=== PATIENT | female | born 1950 | race Caucasian/White ===

== ENCOUNTER 2023-10-19 12:50 | Outpatient (OUT) | payer MEDICARE, SELFPAY ==
--- NOTE | 2023-10-19 12:52 | MM_ITS ---
Patient Name: LORRAINE DE LEON MR#: [id number] : 1950 Exam Date: 10/19/2023 Ordering Doctor: DR TANO MARTINEZ RADIOLOGY REPORT PROCEDURE: MM TOMOSYNTHESIS SCREENING BI COMPARISON: MG MAMM SCREEN 3D JORDI CAD, 10/14/2021. MG MAMM SCREEN 3D JORDI CAD, 10/16/2022. INDICATIONS: screening Calculator Name NCI Breast Cancer Risk Assessment Tool 5 Year Breast Cancer Risk 1.60% Lifetime Breast Cancer Risk 4.10% Personal Breast Cancer No Personal Ovarian Cancer No Treatments None Family Cancers Mother with uterine cancer at age 87. LOCATION: [facility] BREAST COMPOSITION: Scattered areas fibroglandular density. FINDINGS: DIAGNOSTIC CATEGORY 1--NEGATIVE. NO CHANGE FROM COMPARISON ASSESSMENT. Scattered benign-appearing calcifications are present. Scattered benign-appearing lymph nodes are present. RIGHT BREAST: No significant suspicious finding. LEFT BREAST: No significant suspicious finding. RECOMMENDATIONS: ROUTINE MAMMOGRAM AND CLINICAL EVALUATION IN 12 MONTHS. PLEASE NOTE: A NORMAL MAMMOGRAM DOES NOT EXCLUDE THE POSSIBILITY OF BREAST CANCER. A CLINICALLY SUSPICIOUS PALPABLE LUMP SHOULD BE BIOPSIED. Dictated by: Yung Carson MD on 10/19/2023 at 13:33 Approved by: Yung Carson MD on 10/19/2023 at 13:36
== END 2023-10-19 12:51 | disposition home or self-care (01) ==
LOC: MAMMO 12:50
PROVIDERS: PCP Nurse Practitioner Family; Visit Provider Nurse Practitioner Family
DX: Z12.31 Encounter for screening mammogram for malignant neoplasm of breast (principal); Z80.8 Family history of malignant neoplasm of other organs or systems
CPT/HCPCS: 77063; 77067

== ENCOUNTER 2024-10-20 10:27 | Outpatient (OUT) | payer MEDICARE, SELFPAY ==
--- NOTE | 2024-10-20 10:31 | MM_ITS ---
Patient Name: LORRAINE DE LEON MR#: [id number] : 1950 Exam Date: 10/20/2024 Ordering Doctor: DR CHAYITO GARCIA RADIOLOGY REPORT PROCEDURE: MM TOMOSYNTHESIS SCREENING BI COMPARISON: MM TOMOSYNTHESIS SCREENING BI, 10/19/2023. MG MAMM SCREEN 3D JORDI CAD, 10/16/2022. MG MAMM SCREEN 3D JORDI CAD, 10/14/2021. MG MAMM JORDI SCRN W CAD DIG, 08/16/2013. INDICATIONS: Screening Calculator Name NCI Breast Cancer Risk Assessment Tool 5 Year Breast Cancer Risk 1.60% Lifetime Breast Cancer Risk 3.90% Personal Breast Cancer No Personal Ovarian Cancer No Treatments None Family Cancers Mother with uterine cancer at age 87. LOCATION: [facility] BREAST COMPOSITION: There are scattered areas of fibroglandular density. FINDINGS: DIAGNOSTIC CATEGORY 1--NEGATIVE. RIGHT BREAST: No significant suspicious finding. LEFT BREAST: No significant suspicious finding. RECOMMENDATIONS: ROUTINE MAMMOGRAM AND CLINICAL EVALUATION IN 12 MONTHS. PLEASE NOTE: A NORMAL MAMMOGRAM DOES NOT EXCLUDE THE POSSIBILITY OF BREAST CANCER. A CLINICALLY SUSPICIOUS PALPABLE LUMP SHOULD BE BIOPSIED. Dictated by: Jamar Lawton DO on 10/20/2024 at 15:58 Approved by: Jamar Lawton DO on 10/20/2024 at 15:59
--- OUTSIDE RECORDS SUMMARY | 2024-10-20 10:49 | XMS_ITS | CCD ---
Author Organization [facility] Care Team Providers Care Lime Trimmer Name Role Phone WEST, DR TEMO Kelly Consulting Unavailable JOSE, DR STRATTON Primary Care Unavailable JUAN, DR GRISELDA Pérez Attending Unavailable JUAN, DR GRISELDA Pérez Admitting Unavailable KUNS, DR GRISELDA Pérez Consulting Unavailable Chayito Garcia MD Primary Care Provider LORENA AMEZQUITA Attending Unavailable CHAYITO GARCIA Referring Unavailable KAYLEE HENLEY Attending Unavailable LORENA AMEZQUITA Attending Unavailable CHAYITO GARCIA Referring Unavailable Luis OVENS SUPERVISOR-BUNCH MAKER, Shelley Jose Antonio Primary Care Provider LUIS, SHELLEY L Attending Unavailable LUIS, SHELLEY L Referring Unavailable LUIS, SHELLEY L Primary Care Unavailable ANGELA SUMMERS Attending Unavailable LUIS, SHELLEY L Referring Unavailable LUIS, SHELLEY L Primary Care Unavailable QUE CELIS Attending Unavailable LUIS, SHELLEY L Referring Unavailable LUIS, SHELLEY L Primary Care Unavailable LUIS, SHELLEY L Attending Unavailable LUIS, SHELLEY L Referring Unavailable LUIS, SHELLEY L Primary Care Unavailable LUIS, SHELLEY L Primary Care Unavailable LUIS, SHELLEY L Referring Unavailable LUIS, SHELLEY L Attending Unavailable LUIS, SHELLEY L Referring Unavailable LUIS, SHELLEY L Primary Care Unavailable HOLLYS, GRISELDA WAGNER Attending Unavailable GRISELDA MARTINEZ ROSE Referring Unavailable KUNS, RODRÍGUEZ Primary Care Unavailable LUIS, SHELLEY L Referring Unavailable LUIS, SHELLEY L Primary Care Unavailable LUIS, SHELLEY L Referring Unavailable LUIS, SHELLEY L Primary Care Unavailable GRISELDA MARTINEZ R Referring Unavailable KUNAneudy GRISELDA R Primary Care Unavailable Kuns OVENS SUPERVISOR-BULLDOZER ENGINEER, Griselda Wagner Primary Care Provider LAURITA DAVIS Attending Unavailable GRISELDA MARTINEZ Referring Unavailable KUNS, RODRÍGUEZ Primary Care Unavailable LOUIE, LEONEL Engel Attending Unavailable LOUIELEONEL JAVIER Referring Unavailable KUNS, RODRÍGUEZ Primary Care Unavailable LOUIE, LEONEL Engel Admitting Unavailable LOUIE, LEONEL Engel Attending Unavailable KUNS, RODRÍGUEZ Referring Unavailable KUNS, RODRÍGUEZ Primary Care Unavailable ANDIE VU Attending Unavailable KUNS, RODRÍGUEZ Referring Unavailable KUNS, RODRÍGUEZ Primary Care Unavailable BRYNN DAVISON Referring Unavailable LUIS, SHELLEY L Primary Care Unavailable LAURITA DAVIS Attending Unavailable KUNS, RODRÍGUEZ Referring Unavailable LUIS, SHELLEY L Primary Care Unavailable BRYNN DAVISON Referring Unavailable LUIS, SHELLEY L Primary Care Unavailable LOUIE, LEONEL Engel Admitting Unavailable LOUIE, LEONEL Engel Attending Unavailable HOLLYS, RODRÍGUEZ Referring Unavailable LUIS, SHELLEY L Primary Care Unavailable LOUIE, LEONEL Engel Attending Unavailable LOUIE, LEONEL E Referring Unavailable LUIS, SHELLEY L Primary Care Unavailable LEONEL LOUIE Attending Unavailable LOUIE, LEONEL Engel Referring Unavailable LUIS, SHELLEY L Primary Care Unavailable GERTRUDE, LEONEL Engel Admitting Unavailable LOUIELEONEL JAVIER Attending Unavailable LEONEL LOUIE Referring Unavailable LUIS, SHELLEY L Primary Care Unavailable SAMUEL DAVIS Attending Unavailable LUIS, SHELLEY L Referring Unavailable LUIS, SHELLEY L Primary Care Unavailable QUE CELIS Referring Unavailable LUIS, SHELLEY L Primary Care Unavailable LAURITA DAVIS Attending Unavailable LUIS, SHELLEY L Referring Unavailable LUIS, SHELLEY L Primary Care Unavailable LEONEL LOUIE Admitting Unavailable LOUIELEONEL JAVIER Attending Unavailable LUIS, SHELLEY L Referring Unavailable LUIS, SHELLEY L Primary Care Unavailable LEONEL LOUIE Attending Unavailable LEONEL LOUIE Referring Unavailable LUIS, SHELLEY L Primary Care Unavailable Allergies Allergy Classification Reported Allergen(s) Allergy Type Date of Onset Reaction(s) Facility (20 sources) Clindamycin; Translations: [CLINDAMYCIN] Drug Allergy 8 [facility] Work Phone: (8 sources) Hylan G-F 20; Translations: [HYLAN G-F 20] Allergy to substance 1 [facility] (20 sources) Clindamycin; Translations: [CLINDAMYCIN HCL] Drug Allergy 1 [facility] Work Phone: (20 sources) HYLAN G-F 20 Drug Allergy [address] [facility] (20 sources) Other; Translations: [OTHER] Propensity to adverse reactions 1 [facility] Medications Current Medications Medication Drug Class(es) Dates Sig (Normalized) Sig (Original) acetaminophen 325 mg oral tablet (20 sources) Start: 09-28-2020 End: 05-02-2024 take 2 tablets by mouth every six hours as needed for pain and headache and fever acetaminophen (TYLENOL) 325 mg tablet Take 2 tablets (650 mg total) by mouth every 6 (six) hours as needed for pain, headaches or fever. 30 tablet 09/28/2020 05/02/2024 Discontinued (Therapy completed) take 1 tablet by melina th every four hours acetaminophen (Tylenol) 325 MG tablet Ta ke 325 mg by mouth every 4 (four) hours. Active [id number] 200 actuat albuterol 0.09 mg/actuat metered dose inhaler (20 sources) beta2-Adrenergic Agonist Start: 06-08-2023 End: 12-11-2023 take 3 mL by inhalation every six hours as needed for wheezing albuterol (PROVENTIL,VENTOLIN) 2.5 mg /3 mL (0.083 %) nebulizer solution Indications: Mild intermittent asthma, unspecified whether complicated Inhale 3 mL (2.5 mg total) by nebulization every 6 (six) hours as needed for wheezing. 75 mL 1 12/11/2023 Active Start: 05-19-2023 End: 06-01-2024 take 2 puff(s) by inhalation every four hours as needed for wheezing albuterol (PROVENTIL HFA;VENTOLIN HFA) 90 mcg/actuation inhaler Indications: Mild intermittent asthma, unspecified whether complicated Inhale 2 puffs every 4 (four) hours as needed for wheezing. 18 g 1 06/02/2024 Active take 2 puff(s) by in halation every four hours albuterol HFA (ProAir HFA) 90 mcg/act inhaler Inhale 2 puffs every 4 (four) hours if needed. Active Budesonide / formoterol (20 sources) Corticosteroid, beta2-Adrenergic Agonist Start: 05-16-2024 take 2 puff(s) by inhalation in the morning budesonide-formoteroL (SYMBICORT) 160-4.5 mcg/actuation inhaler Indications: Mild persistent asthma without complication Inhale 2 puffs in the morning and 2 puffs before bedtime. 30.6 g 1 05/16/2024 Active Start: 09-22-2023 End: 05-13-2024 take 2 puff(s) by inhalation in the morning budesonide-formoteroL (SYMBICORT) 160-4.5 mcg/actuation inhaler Indications: Mild persistent asthma without complication Inhale 2 puffs in the morning and 2 puffs before bedtime. 30.6 g 1 09/22/2023 05/13/2024 Discontinued (Reorder) Start: 09-22-2023 take 2 puff(s) by in halation in the morning budesonide-formoteroL (SYMBICORT) 160-4.5 mcg/actuation inhaler Indications: Mild persistent asthma without complication Inhale 2 puffs in the morning and 2 puffs before bedtime. 30.6 g 1 09/22/2023 Active Start: 05-19-2023 End: 09-22-2023 take 2 puff(s) by inhalation in the morning budesonide-formoteroL (SYMBICORT) 160-4.5 mcg/actuation inhaler Indications: Mild persistent asthma without complication Inhale 2 puffs in the morning and 2 puffs before bedtime. 30.6 g 1 05/19/2023 09/22/2023 Discontinued (Reorder) Start: 05-19-2023 take 2 puff(s) by in halation in the morning budesonide-formoteroL (SYMBICORT) 160-4.5 mcg/actuation inhaler Indications: Mild persistent asthma without complication Inhale 2 puffs in the morning and 2 puffs before bedtime. 30.6 g 1 05/19/2023 Active take 2 puff(s) by in halation in the morning budesonide-formoterol (Symbicort) 80-4.5 MCG/ACT inhaler Inhale 2 puffs in the morning and 2 puffs before bedtime. Active Calcium Carb-Cholecalciferol (CALCIUM CARBONATE-VITAMIN D3 PO) (5 sources) take 1 tablet by mouth in the morning Calcium Carb-Cholecalciferol (CALCIUM CARBONATE-VITAMIN D3 PO) Take 1 tablet by mouth in the morning and 1 tablet before bedtime. Active calcium carbonate 1250 mg / cholecalciferol 200 unt oral tablet (20 sources) Vitamin D take 1 tablet by mouth once in the morning calcium carbonate-vitamin D3 (OSCAL 500 + D) 500 mg(1,250mg) -200 units per tablet Take 1 tablet by mouth in the morning and 1 tablet in the evening. Take with meals. Active cycloSPORINE 0.5 mg/ml ophthalmic suspension (5 sources) Calcineurin Inhibitor Immunosuppressant take 1 drop(s) into the eye(s) every twelve hours cycloSPORINE (Restasis) 0.05 % ophthalmic emulsion Administer 1 drop into both eyes every 12 (twelve) hours. Active cycloSPORINE (RESTASIS) 0.05 % ophthalmic emulsion (20 sources) take 1 drop(s) into the eye(s) in the morning cycloSPORINE (RESTASIS) 0.05 % ophthalmic emulsion 1 drop in the morning and 1 drop before bedtime. Active take 1 drop(s) into the eye(s) in the morning cycloSPORINE (RESTASIS) 0.05 % ophthalmi c emulsion 1 drop in the morning and 1 drop before bedtime. 0 Active fluticasone propionate 0.05 mg/actuat metered dose nasal spray (20 sources) Corticosteroid Start: 08-18-2023 take 2 spray(s) nasal route in the morning fluticasone propionate (FLONASE) 50 mcg/actuation nasal spray Indications: Mild persistent asthma without complication Administer 2 sprays into each nostril in the morning. 47.4 mL 1 08/18/2023 Active Start: 05-19-2023 End: 08-15-2023 take 2 spray(s) nasal route in the morning fluticasone propionate (FLONASE) 50 mcg/actuation nasal spray Administer 2 sprays into each nostril in the morning. 47.4 mL 1 08/11/2023 08/15/2023 Discontinued (Reorder) take 2 spray(s) nasa l route in the morning fluticasone (Flonase Allergy Relief) 50 MCG/ACT nasal spray Administer 2 sprays into each nostril in the morning. Active levothyroxine sodium 0.025 mg oral tablet (20 sources) l-Thyroxine Start: 09-10-2024 End: 09-15-2024 take 1 tablet by mouth in the morning levothyroxine (SYNTHROID, LEVOTHROID) 25 MCG tablet Take 1 tablet (25 mcg total) by mouth in the morning. 7 tablet 09/15/2024 Active Start: 05-04-2023 End: 04-08-2024 take 1 tablet by mouth in the morning levothyroxine (SYNTHROID, LEVOTHROID) 25 MCG tablet Indications: Acquired hypothyroidism Take 1 tablet (25 mcg total) by mouth in the morning. 90 tablet 1 04/08/2024 Active losartan potassium 50 mg oral tablet (20 sources) Angiotensin 2 Receptor Alexis Start: 09-10-2024 take 1 tablet by mouth in the morning losartan (COZAAR) 50 mg tablet Take 1 tablet (50 mg total) by mouth in the morning. 90 tablet 1 09/10/2024 Active Start: 02-26-2024 End: 03-14-2024 take 1 tablet by mouth in the morning losartan (COZAAR) 50 mg tablet Take 1 tablet (50 mg total) by mouth in the morning. 90 tablet 1 03/15/2024 Active Start: 05-20-2023 End: 02-26-2024 take 1 tablet by mouth in the morning losartan (COZAAR) 25 mg tablet Take 1 tablet (25 mg total) by mouth in the morning. 30 tablet 11 10/29/2023 Active meclizine hydrochloride 25 mg oral tablet (20 sources) Antiemetic Start: 10-07-2022 take 1 tablet by mouth three times daily as needed for dizziness meclizine (ANTIVERT) 25 mg tablet Indications: Vertigo Take 1 tablet (25 mg total) by mouth 3 (three) times a day as needed for dizziness. 30 tablet 1 10/07/2022 Active metroNIDAZOLE 250 mg oral tablet (7 sources) Nitroimidazole Antimicrobial take 1 tablet by mouth in the morning metroNIDAZOLE (FLAGYL) 250 mg tablet Take 1 tablet (250 mg total) by mouth in the morning. Active tllmpjcj-bmwx-CS-ca lcium &mins (THERAGRAN-M) 9 mg iron-400 mcg tablet (20 sources) sajyeqpr-yazr-VT -c alcium &mins (THERAGRAN-M) 9 mg iron-400 mcg tablet Take 1 tablet by mouth in the morning. Active irnudcoa-girk-OC -calcium &mins (THERAGRAN-M) 9 mg iron-400 mcg tablet Take 1 tablet by mouth in the morning. 0 Active multivitamin (Theragran) tablet (5 sources) take 1 tablet by mouth in the morning multivitamin (Theragran) tablet Take 1 tablet by mouth in the morning. Active rosuvastatin calcium 5 mg oral tablet (20 sources) HMG-CoA Reductase Inhibitor Start: take 1 tablet by mouth once daily rosuvastatin (CRESTOR) 5 mg tablet Indications: Mixed hyperlipidemia Take 1 tablet (5 mg total) by mouth nightly. 90 tablet 1 09/10/2024 Active Start: 05-04-2023 End: 04-08-2024 take 1 tablet by mouth once daily rosuvastatin (CRESTOR) 5 mg tablet Indications: Mixed hyperlipidemia Take 1 tablet (5 mg total) by mouth nightly. 90 tablet 1 04/08/2024 Active Turmeric extract (12 sources) turmeric ([place] [facility] by miscellaneous route. Active vitamin b12 0.1 mg oral tablet (1 source) Vitamin B12 Start: 09-15-2024 take 1 tablet by mouth in the morning cyanocobalamin (VITAMIN B-12) 100 MCG tablet Take 1 tablet (100 mcg total) by mouth in the morning. 90 tablet 1 09/15/2024 Active Completed/Discontinued Medications Medication Drug Class(es) Dates Sig (Normalized) Sig (Original) bifidobacterium infantis 4 mg oral capsule (20 sources) Start: 05-19-2023 End: 04-29-2024 take 1 capsule by mouth in the morning Bifidobacterium infantis (ALIGN) 4 mg capsule Indications: Diarrhea, unspecified type Take 1 capsule (4 mg total) by mouth in the morning. 100 capsule 3 05/19/2023 04/29/2024 Discontinued escitalopram 5 mg oral tablet (20 sources) Serotonin Reuptake Inhibitor Start: 08-06-2024 End: 09-15-2024 take 1 tablet by mouth in the morning escitalopram (LEXAPRO) 5 mg tablet Take 1 tablet (5 mg total) by mouth in the morning. 90 tablet 1 08/11/2024 09/15/2024 Discontinued (Duplicate Listing) Start: 05-04-2023 End: 08-04-2024 take 1 tablet by mouth in the morning escitalopram (LEXAPRO) 5 mg tablet Take 1 tablet (5 mg total) by mouth in the morning. 90 tablet 1 04/08/2024 Active temazepam 7.5 mg oral capsule (20 sources) Benzodiazepine Start: 06-08-2023 End: 04-29-2024 take 1 capsule by mouth once daily as needed for sleep temazepam (RestoriL) 7.5 mg capsule Indications: Adjustment insomnia Take 1 capsule (7.5 mg total) by mouth nightly as needed for sleep. 30 capsule 02/16/2024 04/29/2024 Discontinued Problems Active Problems Problem Classification Problem Date Documented Da te Episodic/Chronic Allergic reactions (20 sources) Allergic reaction to drug; Translations: [Allergy, unspecified, initial encounter] 11-19-2017 Episodic Anxiety disorders (20 sources) Anxiety; Translations: [Anxiety disorder, unspecified] Onset: 2 04-30-2022 Chronic Asthma (20 sources) Asthma; Translations: [Unspecified asthma, uncomplicated] Onset: 2 04-30-2022 Chronic Chronic obstructive pulmonary disease and bronchiectasis (20 sources) Chronic obstructive lung disease; Translations: [Chronic obstructive pulmonary disease, unspecified] Onset: 7 02-07-2023 Chronic Conditions associated with dizziness or vertigo (20 sources) Meniere's disease; Translations: [Meniere's disease, unspecified ear] Onset: 8 02-07-2023 Chronic Diabetes mellitus with complications (20 sources) Type 2 diabetes mellitus; Translations: [Type 2 diabetes mellitus with other diabetic kidney complication] Onset: 3 05-20-2023 Chronic Diabetes mellitus without complication (20 sources) Type 2 diabetes mellitus without complication; Translations: [Type 2 diabetes mellitus without complications] Onset: 7 Resolved: 3 02-07-2023 Chronic Disorders of lipid metabolism (20 sources) Hyperlipidemia; Translations: [Hyperlipidemia, unspecified] Onset: 2 Resolved: 3 05-19-2023 Chronic Esophageal disorders (20 sources) Gastroesophageal reflux disease; Translations: [Gastro-esophageal reflux disease without esophagitis] Onset: 2 04-30-2022 Chronic Esophageal disorders (1 source) Esophageal disorders; Translations: [Gastro-esophageal reflux disease with esophagitis, without bleeding] Onset: 4 Essential hypertension (20 sources) Hypertensive disorder; Translations: [Essential (primary) hypertension] Onset: 2 02-07-2023 Chronic Menopausal disorders (20 sources) Atrophy of vagina; Translations: [Postmenopausal atrophic vaginitis] Onset: 6 04-30-2022 Chronic Nutritional deficiencies (20 sources) Vitamin D deficiency; Translations: [Vitamin D deficiency, unspecified] Onset: 9 04-30-2022 Chronic Osteoarthritis (20 sources) Osteoarthritis of knee; Translations: [Osteoarthritis of knee, unspecified] Onset: 6 Resolved: 3 02-07-2023 Chronic Other congenital anomalies (20 sources) Porokeratosis; Translations: [Other specified congenital malformations of skin] Onset: 0 Resolved: 3 02-07-2023 Chronic Other ear and sense organ disorders (20 sources) Sensorineural hearing loss, bilateral; Translations: [Sensorineural hearing loss, bilateral] Onset: 8 02-07-2023 Chronic Other ear and sense organ disorders (1 source) Sensation of blocked right ear; Translations: [Other specified disorders of right ear] 05-23-2024 Episodic Other gastrointestinal disorders (1 source) Intestinal malabsorption, unspecified; Translations: [Intestinal malabsorption, unspecified] Onset: 4 Chronic Other nervous system disorders (20 sources) Mononeuropathy of lower limb; Translations: [Unspecified mononeuropathy of bilateral lower limbs] Onset: 4 12-23-2023 Chronic Other nervous system disorders (1 source) Other specified mononeuropathies of right lower limb; Translations: [Other specified mononeuropathies of right lower limb] Onset: 5 Chronic Other nervous system disorders (1 source) Unspecified mononeuropathy of bilateral lower limbs; Translations: [Unspecified mononeuropathy of bilateral lower limbs] Onset: 4 Chronic Other nutritional; endocrine; and metabolic disorders (20 sources) Obesity; Translations: [Obesity, unspecified] Onset: 2 04-30-2022 Chronic Other nutritional; endocrine; and metabolic disorders (2 sources) Obesity caused by energy imbalance; Translations: [Class 1 obesity due to excess calories without serious comorbidity with body mass index (BMI) of 33.0 to 33.9 in adult] 09-15-2024 Chronic Other nutritional; endocrine; and metabolic disorders (1 source) Other obesity due to excess calories; Translations: [Other obesity due to excess calories] Onset: 2 Chronic Other nutritional; endocrine; and metabolic disorders (1 source) Body mass index (BMI) 33.0-33.9, adult; Translations: [Body mass index (BMI) 33.0-33.9, adult] Onset: 2 Chronic Other screening for suspected conditions (not mental disorders or infectious disease) (4 sources) Encounter for screening mammogram for malignant neoplasm of breast; Translations: [ENC SCR MAMMO MALIG NEOPLASM BREAST] Onset: 3 Episodic Otitis media and related conditions (2 sources) Chronic right mastoiditis; Translations: [Chronic mastoiditis, right ear] 06-22-2024 Chronic Residual codes; unclassified (1 source) Family history of malignant neoplasm of other organs or systems; Translations: [FAM HX MALIG NEOPLASM OTH ORGN/SYS] Onset: 3 Episodic Spondylosis; intervertebral disc disorders; other back problems (20 sources) Lumbar spondylosis; Translations: [Spondylosis without myelopathy or radiculopathy, lumbar region] Onset: 4 12-23-2023 Chronic Thyroid disorders (20 sources) Hypothyroidism; Translations: [Hypothyroidism, unspecified] Onset: 8 04-30-2022 Chronic Unclassified (1 source) controlled meds Onset: 5 Unclassified (1 source) Post-op Onset: 4 Unclassified (1 source) Cyst Onset: 4 Unclassified (1 source) Obesity, class 1; Translations: [Obesity, class 1] Onset: 2 Unclassified (1 source) Other specified mononeuropathies of right lower limb [G57.81] Onset: 4 Past or Other Problems Problem Classification Problem Date Documented Da te Episodic/Chronic Deficiency and other anemia (2 sources) Other iron deficiency anemias; Translations: [Other iron deficiency anemias] Onset: 11-24-2023 Episodic Genitourinary symptoms and ill-defined conditions (2 sources) Proteinuria, unspecified; Translations: [Proteinuria, unspecified] Onset: 05-20-2023 Episodic Immunizations and screening for infectious disease (2 sources) Encounter for immunization; Translations: [Influenza vaccination given] Onset: 05-26-2024 05-26-2024 Episodic Inflammatory diseases of female pelvic organs (20 sources) Chronic vaginitis; Translations: [Subacute and chronic vaginitis] Onset: 07-08-2016 04-30-2022 Episodic Miscellaneous mental health disorders (10 sources) Adjustment insomnia; Translations: [Acute insomnia] Onset: 02-26-2024 02-15-2024 Episodic Mood disorders (20 sources) Mood disorders Onset: 04-28-2024 Resolved: 05-26-2024 05-26-2024 Other and unspecified benign neoplasm (5 sources) Benign neoplasm of bone; Translations: [Benign neoplasm of bone and articular cartilage, unspecified] Onset: 02-07-2023 02-07-2023 Episodic Other and unspecified benign neoplasm (20 sources) Osteoma of skull; 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] Onset: 02-11-2023 02-11-2023 Episodic Other connective tissue disease (20 sources) Fibromyalgia; Translations: [Fibromyalgia] Onset: 05-19-2023 05-19-2023 Episodic Other ear and sense organ disorders (20 sources) Bilateral tinnitus; Translations: [Tinnitus, bilateral] Onset: 03-31-2018 02-07-2023 Episodic Other gastrointestinal disorders (20 sources) History of bariatric surgical procedure; Translations: [Bariatric surgery status] Onset: 01-11-2019 04-30-2022 Episodic Other gastrointestinal disorders (3 sources) Bariatric surgery status; Translations: [Bariatric surgery status] Onset: 04-30-2022 Episodic Other nervous system disorders (5 sources) Difficulty walking; Translations: [Difficulty in walking, not elsewhere classified] Onset: 02-07-2023 Resolved: 02-07-2023 02-07-2023 Chronic Other non-traumatic joint disorders (5 sources) Arthropathy; Translations: [Arthropathy, unspecified] Onset: 02-07-2023 Resolved: 02-07-2023 02-07-2023 Chronic Other skin disorders (2 sources) Epidermal cyst; Translations: [Epidermal cyst] Onset: 06-22-2024 Episodic Other skin disorders (1 source) Epidermoid cyst of skin; Translations: [Epidermal cyst] 05-26-2024 Episodic Other skin disorders (2 sources) Epidermoid cyst; Translations: [Epidermal cyst] 06-22-2024 Episodic Otitis media and related conditions (2 sources) Unspecified Eustachian tube disorder, right ear; Translations: [Dysfunction of right eustachian tube] Onset: 05-26-2024 05-26-2024 Episodic Residual codes; unclassified (20 sources) Edema; Translations: [Edema, unspecified] Onset: 04-30-2022 04-30-2022 Episodic Residual codes; unclassified (1 source) Edema, unspecified; Translations: [Edema, unspecified] Onset: 02-16-2024 Episodic Screening and history of mental health and substance abuse codes (1 source) Patient encounter status; Translations: [Encounter for screening for depression] 05-02-2024 Episodic Skin and subcutaneous tissue infections (20 sources) Cellulitis of right lower limb; Translations: [Cellulitis of right lower limb] Onset: 11-17-2017 11-19-2017 Episodic Spondylosis; intervertebral disc disorders; other back problems (20 sources) Disorder of sacrum; Translations: [Sacrococcygeal disorders, not elsewhere classified] Onset: 06-04-2022 07-08-2022 Episodic Syncope (20 sources) Vasovagal syncope; Translations: [Syncope and collapse] Onset: 09-28-2020 09-28-2020 Episodic Unclassified (20 sources) Onset: 08-25-2022 08-25-2022 Viral infection (20 sources) Plantar wart of right foot; Translations: [Plantar wart] Onset: 12-22-2016 Resolved: 02-07-2023 02-07-2023 Episodic Results Test Name Value Interpretation Reference Range Facility COMPREHENSIVE METABOLIC PANE Jaiden 09-15-2024 Albumin [Mass/Vol] 4.2 g/dL Normal 3.2-5.3 [facility] Comment on above: Performed By: #### C MP, THYR #### [facility] ([id number]) [address], [address] [place] [address] ALP [Catalytic activity/Vol] 72 U/L Normal 39-130 [facility] Comment on above: Performed By: #### C ROYA, THYR #### [facility] ([id number]) [address], [address] [place] [address] ALT [Catalytic activity/Vol] 29 U/L Normal 0-31 [facility] Comment on above: Performed By: #### C ROYA, THYR #### [facility] ([id number]) [address], [address] [place] [address] Anion gap [Moles/Vol] 10 mmol/L Normal 5-15 [facility] Comment on above: Performed By: #### C ROYA, THYR #### [facility] ([id number]) [address], [address] [place] [address] AST [Catalytic activity/Vol] 27 U/L Normal 0-41 [facility] Comment on above: Performed By: #### C ROYA, THYR #### [facility] ([id number]) [address], [address] [place] [address] Bilirubin [Mass/Vol] 0.4 mg/dL Normal 0.3-1.2 [facility] Comment on above: Performed By: #### C ROYA, THYR #### [facility] ([id number]) [address], [address] [place] [address] Calcium [Mass/Vol] 9.3 mg/dL Normal 8.5-10.5 [facility] Comment on above: Performed By: #### C ROYA, THYR #### [facility] ([id number]) [address], [address] [place] [address] Chloride [Moles/Vol] 104 mmol/L Normal 98-109 [facility] Comment on above: Performed By: #### C ROYA, THYR #### [facility] ([id number]) [address], [address] [place] [address] CO2 [Moles/Vol] 26 mmol/L Normal 22-32 [facility] Comment on above: Performed By: #### C ROYA, THYR #### [facility] ([id number]) [address], [address] [place] [address] Creatinine [Mass/Vol] 0.66 mg/dL Normal 0.40-1.00 [facility] Comment on above: Result Comment: METH OD TRACEABLE TO IDMS STANDARD Performed By: #### C ROYA, THYR #### [facility] ([id number]) [address] [address] [place] [address] eGFR (CKD-EPI) NON-RACE DEPENDENT >90 Normal >59 [facility] Comment on above: Result Comment: Reported eGFR is based on the CKD-EPI 2020 equation that does not use a race coefficient. Performed By: #### C ROYA, THYR #### [facility] ([id number]) [address], [address] [place] [address] Glucose [Mass/Vol] 127 mg/dL High 65-99 [facility] Comment on above: Performed By: #### C ROYA, THYR #### [facility] ([id number]) [address] [address] [place] [address] Potassium [Moles/Vol] 4.4 mmol/L Normal 3.5-5.0 [facility] Comment on above: Performed By: #### C ROYA, THYR #### [facility] ([id number]) [address] [address] [place] [address] Protein [Mass/Vol] 6.6 g/dL Normal 6.0-8.0 [facility] Comment on above: Performed By: #### C ROYA, THYR #### [facility] ([id number]) [address] [place] [address] Sodium [Moles/Vol] 140 mmol/L Normal 134-146 [facility] Comment on above: Performed By: #### C ROYA, THYR #### [facility] ([id number]) [address], [address] [place] [address] Urea nitrogen [Mass/Vol] 13 mg/dL Normal 5-27 [facility] Comment on above: Performed By: #### C ROYA, THYR #### [facility] ([id number]) [address], [address] [place] [address] MICROALBUMIN - ALBUMIN:CREAT ININE URINE RATIOon 09-15-2024 ALB/CREAT RATIO NOT CALCULATED Normal 0.0-30.0 [facility] Comment on above: Result Comment: Result for Albumin/Creatinine Ratio cannot be reliably calculated because urine albumin and or urine creatinine is below the detection limit of the assay. Performed By: #### M ALBU #### [facility] ([id number]) [address], [address] [place] [address] Albumin DL <= 20 mg/L (U) [Mass/Vol] mg/dL Normal 0.0-1.9 [facility] Comment on above: Performed By: #### M ALBU #### [facility] ([id number]) [address], [address] [place] [address] URINE CREAT 51.90 mg/dL Normal [facility] Comment on above: Performed By: #### M ALBU #### [facility] ([id number]) [address], [address] [place] [address] POCT Hemoglobin A1con 2024 HbA1c (Bld) [Mass fraction] 6.7 % 4 - 7 % [facility] THYROID PROFILEon 09-15-2024 Free T4 [Mass/Vol] 1.00 ng/dL Normal 0.61-1.60 [facility] Comment on above: Performed By: #### C MP, THYR #### [facility] ([id number]) [address] [place] [address], [address] [place] [address] TSH 2.14 uIU/mL Normal 0.49-4.67 [facility] Comment on above: Performed By: #### C MP, THYR #### [facility] ([id number]) [address] [place] [address], [address] [place] [address] Surgical Pathologyon 024 Surgical Pathology Normal [facility] Comment on above: Result Comment: [facility] [address] [place] [address] Surgical Pathology Consultation Patient Name:LOLI FLORES:1950 (Age: 74)Gender:FTaken:4Reported:06/28/2024hysician (s):Que Celis D.O. ([phone])Copy To: Rec. #:[id number]: #[id number] Final Pathologic Diagnosis Inclusion cyst - excision: - Benign epidermal inclusion cyst Report Electronically Signed Out manriquez/06/28/2024Bruce Porras MD [place] [address], License number: [id number]. Clinical History Inclusion cyst L72.0. Cyst left buttocks x1 year. Gross Description Received in formalin labeled DEFRIECE, left buttocks incision cyst is a pale-jaramillo wrinkled hair-bearing ellipse of skin, 1.9 x 0.8 x 0.1 cm. No lesion or area of discoloration is identified. The resection margin is inked green. The specimen is serially sectioned to reveal a cystic structure filled with friable vegetative material. Two front office representative cross-sections are submitted in a single cassette. (1, ss, [id number],m1) DM. dm/06/23/2024NSK Specimen(s) Received Left buttock Fee Codes(s): 1; 49377 Phytonadione [Mass/Vol]on VITAMIN K1 0.31 nmol/L Normal 0.22-4.88 [facility] Comment on above: Result Comment: NOTE INTERPRETIVE INFORMATION: Vitamin K1, Serum Vitamin K concentration is reported as nanomoles per liter (nmol/L). To convert concentration to nanograms per milliliter (ng/mL), multiply the result by 0.45. This test was developed and its performance characteristics determined by [facility]. It has not been cleared or approved by the [place] Food and Drug Administration. This test was performed in a CLIA certified laboratory and is intended for clinical purposes. Performed By: [facility] [address] [place] [address] Offal Baler: Isaac Avalos MD, PhD CLIA Number: [id number] Performed By: #### C BCA, CMP, FEPR, 04577-7, 2777-1, 2276-4, 2284-8, 2132-9, 78624-6 #### [facility] ([id number]) [address] [facility] [facility] [place] [address] #### 24566-3 #### [facility] ([id number]) [address] [place] [address], [place] [address] DRUG SCREEN, URINEon 024 AMPHETAMINE/METHAMP Negative Normal NEG [facility] Comment on above: Result Comment: AMPH /METH screening cut off = 1000 ng/mL Performed By: #### D JAIN #### [facility] ([id number]) [address] [facility] [facility] [place] [address] BARBITURATES Negative Normal NEG [facility] Comment on above: Result Comment: Kenzie iturates screening cut off value = 200 ng/mL Performed By: #### D JAIN #### [facility] ([id number]) [address] [facility], [address] [place] [address] BENZODIAZEPINES Negative Normal NEG [facility] Comment on above: Result Comment: Kishore odiazepines screening cut off value = 200 ng/mL Performed By: #### D JAIN #### [facility] ([id number]) [address] [place] [address] CANNABINOIDS Negative Normal NEG [facility] Comment on above: Result Comment: Nell abinoids/THC screening cut off value = 50 ng/mL Performed By: #### D JAIN #### [facility] ([id number]) [address] [place] [address] COCAINE METABOLITE Negative Normal NEG [facility] Comment on above: Result Comment: Coca ine screening cut off value = 300 ng/mL Performed By: #### D JAIN #### [facility] ([id number]) [address] [place] [address] ECSTASY Negative Normal [facility] Comment on above: Result Comment: Ecst asy screening cut off value = 500 ng/mL This report is intended for use in clinical monitoring or management of patients. Performed By: #### D JAIN #### [facility] ([id number]) [address], [address] [place] [address] METHADONE Negative Normal [facility] Comment on above: Result Comment: Meth adone screening cut off value = 300 ng/mL. Performed By: #### D JAIN #### [facility] ([id number]) [address], [address] [place] [address] OPIATES Negative Normal NEG [facility] Comment on above: Result Comment: Opia mariah screening cut off value = 300 ng/mL NOTE: This test is used for the detection of codeine, hydrocodone (>1000 ng/mL), morphine and hydromorphone (>900 ng/mL) in urine. Performed By: #### D JAIN #### [facility] ([id number]) [address], [address] [place] [address] OXYCODONE Negative Normal NEG [facility] Comment on above: Result Comment: Oxyc odone screening cut off value = 300 ng/mL NOTE: This test is used for the detection of oxycodone and oxymorphone in urine. Performed By: #### D JAIN #### [facility] ([id number]) [address] [facility] [place] [address] PHENCYCLIDINE Negative Normal NEG [facility] Comment on above: Result Comment: Phen cyclidine screening cut off value = 25 ng/mL Performed By: #### D JAIN #### [facility] ([id number]) [address] [place] [address] Drug Screen, Urineon 024 Amphetamines Screen method >1000 ng/mL Ql (U) Negative Negative^N [facility] Comment on above: AMPH/METH screening cut off = 1000 ng/mL Barbiturates Screen Ql (U) Negative N ative^N [facility] Comment on above: Barbiturates screeni ng cut off value = 200 ng/mL Benzodiazepines Ql (U) Negative Negat arabella^N [facility] Comment on above: Benzodiazepines scre ening cut off value = 200 ng/mL Cocaine Ql (U) Negative Negative^N [facility] Comment on above: Cocaine screening cu t off value = 300 ng/mL Methadone Screen Ql (U) Negative Nega tive^N [facility] Comment on above: Methadone screening cut off value = 300 ng/mL. Methylenedioxymethamphetamin e Screen Ql (U) Negative Negative^N [facility] Comment on above: Ecstasy screening cu t off value = 500 ng/mL This report is intended for use in clinical monitoring or management of patients. Opiates Screen Ql (U) Negative Negati ve^N [facility] Comment on above: Opiates screening cu t off value = 300 ng/mL NOTE: This test is used for the detection of codeine, hydrocodone (>1000 ng/mL), morphine and hydromorphone (>900 ng/mL) in urine. oxyCODONE Ql (U) Negative Negative^N [facility] Comment on above: Oxycodone screening cut off value = 300 ng/mL NOTE: This test is used for the detection of oxycodone and oxymorphone in urine. Phencyclidine Screen method >25 ng/mL Ql (U) Negative Negative^N egative [facility] Comment on above: Phencyclidine screen ing cut off value = 25 ng/mL Tetrahydrocannabinol Screen method >50 ng/mL Ql (U) Negative Negative^N ative [facility] Comment on above: Cannabinoids/THC scr eening cut off value = 50 ng/mL [facility] POCT Hemoglobin A1con 2023 HbA1c (Bld) [Mass fraction] 6.2 g/dL 4 - 7 g/ dL [facility] CBC AND AUTO DIFFon 02-16-20 ABSOLUTE BASOPHIL 0.0 X10E9/L Normal 0.0-0.2 [facility] Comment on above: Performed By: #### C BCA, CMP, FEPR, 82404-1, 2777-1, 2276-4, 2284-8, 2132-9, 60802-9 #### [facility] ([id number]) [address] [place] [address], [address] [place] [address] #### 26648-1 #### [facility] ([id number]) [address] [place] [address] ABSOLUTE NEUTROPHIL 4.3 X10E9/L Normal 1.5-6.6 [facility] Comment on above: Performed By: #### C BCA, CMP, FEPR, 20934-7, 2777-1, 2276-4, 2284-8, 2132-9, 10747-6 #### [facility] ([id number]) [address] [place] [address], [address] [place] [address] #### 45268-1 #### [facility] ([id number]) [address] [place] [address] Basophils/100 WBC (Bld) 0.2 % Normal [facility] Comment on above: Performed By: #### C BCA, CMP, FEPR, 87344-0, 7-1, 2276-4, 4-8, 2131-9, 26065-7 #### [facility] ([id number]) [address] [place] [address], [address] [place] [address] #### 99680-0 #### [facility] ([id number]) [address] [place] [address] Eosinophils (Bld) [#/Vol] 0.1 10*3/uL Normal 0.0-0.4 [facility] Comment on above: Performed By: #### C BCA, CMP, FEPR, 51871-2, 7-1, 6-4, 2283-8, 2132-04, 00433-8 #### [facility] ([id number]) [address] [place] [address], [address] [place] [address] #### 80072-7 #### [facility] ([id number]) [address] [place] [address] Eosinophils/100 WBC (Bld) 1.3 % Normal [facility] Comment on above: Performed By: #### C BCA, CMP, FEPR, 08734-0, 7-1, 6-4, 2283-8, 2132-04, 32627-8 #### [facility] ([id number]) [address] [place] [address], [address] [place] [address] #### 34556-3 #### [facility] ([id number]) [address] [place] [address] Erythrocyte distribution wid th (RBC) [Ratio] 14.0 % Normal 11.5-15.0 [facility] Comment on above: Performed By: #### C BCA, CMP, FEPR, 93160-1, 7-1, 2276-4, 4-8, 2132-04, 68633-1 #### [facility] ([id number]) [address] [place] [address] #### 31019-2 #### [facility] ([id number]) [address] [place] [address] Hematocrit (Bld) [Volume fraction] 42.8 % Normal 35-47 [facility] Comment on above: Performed By: #### C BCA, CMP, FEPR, 30394-2, 2777-1, 2276-4, 2284-8, 2131-9, 49286-8 #### [facility] ([id number]) [address] [place] [address] #### 17010-8 #### [facility] ([id number]) [address] [place] [address] Hemoglobin (Bld) [Mass/Vol] 15.1 g/dL Normal 11.7-15. 5 [facility] Comment on above: Performed By: #### C BCA, CMP, FEPR, 94190-6, 7-1, 2276-4, 4-8, 2131-9, 47567-4 #### [facility] ([id number]) [address] [place] [address] #### 18634-6 #### [facility] ([id number]) [address] [place] [address] Lymphocytes (Bld) [#/Vol] 1.1 10*3/uL Normal 1.0-3.5 [facility] Comment on above: Performed By: #### C BCA, CMP, FEPR, 58838-6, 2777-1, 2276-4, 2284-8, 2131-9, 62360-6 #### [facility] ([id number]) [address] [place] [address] #### 68709-2 #### [facility] ([id number]) [address] [place] [address] Lymphocytes/100 WBC (Bld) 18.5 % Normal [facility] Comment on above: Performed By: #### C BCA, CMP, FEPR, 66772-7, 2777-1, 2276-4, 2284-8, 2132-9, 41299-7 #### [facility] ([id number]) [address] [place] [address], [address] [place] [address] #### 48364-4 #### [facility] ([id number]) [address] [place] [address] MCH (RBC) [Entitic mass] 31.5 pg Normal 27-34 [facility] Comment on above: Performed By: #### C BCA, CMP, FEPR, 46006-6, 7-1, 6-4, 4-8, 2131-9, 42931-0 #### [facility] ([id number]) [address] [place] [address], [address] [address] #### 11149-6 #### [facility] ([id number]) [address] [place] [address] MCHC (RBC) [Mass/Vol] 35.2 g/dL Normal 32-36 [facility] Comment on above: Performed By: #### C BCA, CMP, FEPR, 73850-6, 7-1, 6-4, 2284-8, 2131-9, 70163-7 #### [facility] ([id number]) [address] [place] [address], [address] [place] [address] #### 63676-0 #### [facility] ([id number]) [address] [place] [address] MCV (RBC) [Entitic vol] 89 fL Normal 80-100 [facility] Comment on above: Performed By: #### C BCA, CMP, FEPR, 91027-7, 2777-1, 2276-4, 2284-8, 2-9, 13834-9 #### [facility] ([id number]) [address] [place] [address] #### 81728-3 #### [facility] ([id number]) [address] [place] [address] Monocytes (Bld) [#/Vol] 0.5 10*3/uL Normal 0-0.9 [facility] Comment on above: Performed By: #### C BCA, CMP, FEPR, 88528-0, 7-1, 2276-4, 4-8, 2131-9, 28603-5 #### [facility] ([id number]) [address] [facility], [address] [place] [address] #### 85587-9 #### [facility] ([id number]) [address] [place] [address] Monocytes/100 WBC (Bld) 7.7 % Normal [facility] Comment on above: Performed By: #### C BCA, CMP, FEPR, 94997-1, 2777-1, 2276-4, 2284-8, 2131-9, 08583-7 #### [facility] ([id number]) [address] [facility], [address] [place] [address] #### 78964-9 #### [facility] ([id number]) [address] [place] [address] Neutrophils/100 WBC (Bld) 72.3 % Normal [facility] Comment on above: Performed By: #### C BCA, CMP, FEPR, 29089-7, 2777-1, 2276-4, 2284-8, 2131-9, 71675-3 #### [facility] ([id number]) [address] [place] [address] #### 43826-2 #### [facility] ([id number]) [address] [place] [address] Platelet mean volume (Bld) [Entitic vol] 8.3 fL Normal 7-12 [facility] Comment on above: Performed By: #### C BCA, CMP, FEPR, 73544-9, 2777-1, 2276-4, 2284-8, 2132-9, 74149-1 #### [facility] ([id number]) [address] [place] [address] #### 73379-1 #### [facility] ([id number]) [address] [place] [address] Platelets (Bld) [#/Vol] 178 10*3/uL Normal 150-450 [facility] Comment on above: Performed By: #### C BCA, CMP, FEPR, 53875-5, 2777-1, 2276-4, 2284-8, 2132-9, 46803-0 #### [facility] ([id number]) [address] [place] [address] #### 58834-4 #### [facility] ([id number]) [address] [place] [address] RBC COUNT 4.79 X10E12/L Normal 3.80-5.20 [facility] Comment on above: Performed By: #### C BCA, CMP, FEPR, 98201-6, 2777-1, 2276-4, 2284-8, 2132-9, 48003-1 #### [facility] ([id number]) [address] [place] [address] #### 03808-9 #### [facility] ([id number]) [address] [place] [address] WBC (Bld) [#/Vol] 5.9 10*3/uL Normal 4.0-11.0 [facility] Comment on above: Performed By: #### C BCA, CMP, FEPR, 59492-2, 2777-1, 2276-4, 2284-8, 2132-9, 60663-9 #### [facility] ([id number]) [address] [facility], [address] [place] [address] #### 75052-0 #### [facility] ([id number]) [address] [place] [address] COMPREHENSIVE METABOLIC PANE Jaiden 02-16-2024 Albumin [Mass/Vol] 4.1 g/dL Normal 3.2-5.3 [facility] Comment on above: Performed By: #### C BCA, CMP, FEPR, 93292-2, 7-1, 2276-4, 2284-8, 2-9, 02587-2 #### [facility] ([id number]) [address] [facility], [address] [place] [address] #### 12974-7 #### [facility] ([id number]) [address] [place] [address]897 ALP [Catalytic activity/Vol] 63 U/L Normal 39-130 [facility] Comment on above: Performed By: #### C BCA, CMP, FEPR, 19577-9, 7-1, 2276-4, 2284-8, 2132-9, 80809-4 #### [facility] ([id number]) [address] [facility], [address] [place] [address] #### 80233-9 #### [facility] ([id number]) [address] [place] [address]010 ALT [Catalytic activity/Vol] 26 U/L Normal 0-31 [facility] Comment on above: Performed By: #### C BCA, CMP, FEPR, 72778-8, 2777-1, 2276-4, 2284-8, 2132-9, 75481-8 #### [facility] ([id number]) [address] [facility] [facility] [address] [place] [address] #### 25990-9 #### [facility] ([id number]) [address] [place] [address] Anion gap [Moles/Vol] 10 mmol/L Normal 5-15 [facility] Comment on above: Performed By: #### C BCA, CMP, FEPR, 58876-7, 2777-1, 2276-4, 2284-8, 2131-9, 70129-5 #### [facility] ([id number]) [address] [address] #### 66165-0 #### [facility] ([id number]) [address] [place] [address] AST [Catalytic activity/Vol] 27 U/L Normal 0-41 [facility] Comment on above: Performed By: #### C BCA, CMP, FEPR, 17819-8, 2777-1, 2276-4, 2284-8, 2131-9, 24255-7 #### [facility] ([id number]) [address] [facility] [facility] [address] [place] [address] #### 50021-4 #### [facility] ([id number]) [address] [place] [address]47 Bilirubin [Mass/Vol] 0.5 mg/dL Normal 0.3-1.2 [facility] Comment on above: Performed By: #### C BCA, CMP, FEPR, 11796-4, 2777-1, 2276-4, 2284-8, 2132-9, 06263-6 #### [facility] ([id number]) [address] [facility], [address] [place] [address] #### 01198-0 #### [facility] ([id number]) [address] [place] [address] 28216 Calcium [Mass/Vol] 9.1 mg/dL Normal 8.5-10.5 [facility] Comment on above: Performed By: #### C BCA, CMP, FEPR, 88946-3, 2777-1, 2276-4, 2284-8, 2-9, 32969-3 #### [facility] ([id number]) [address] [facility], [address] [place] [address] #### 55359-8 #### [facility] ([id number]) [address] [place] [address] 25977 Chloride [Moles/Vol] 105 mmol/L Normal 98-109 [facility] Comment on above: Performed By: #### C BCA, CMP, FEPR, 94387-5, 7-1, 2276-4, 2284-8, 2131-9, 54880-5 #### [facility] ([id number]) [address] [facility], [address] [place] [address] #### 22500-7 #### [facility] ([id number]) [address] [place] [address] 44509 CO2 [Moles/Vol] 27 mmol/L Normal 22-32 [facility] Comment on above: Performed By: #### C BCA, CMP, FEPR, 36337-5, 2777-1, 2276-4, 2284-8, 2132-9, 01992-1 #### [facility] ([id number]) [address], [address] [place] [address] #### 04494-0 #### [facility] ([id number]) [address] [place] [address] [address] Creatinine [Mass/Vol] 0.63 mg/dL Normal 0.40-1.00 [facility] Comment on above: Result Comment: METH OD TRACEABLE TO IDMS STANDARD Performed By: #### C BCA, CMP, FEPR, 21779-2, 2777-1, 2276-4, 2284-8, 2132-9, 28974-9 #### [facility] ([id number]) [address] [facility], [address] [place] [address] #### 81117-4 #### [facility] ([id number]) [address] [place] [address]93 eGFR (CKD-EPI) NON-RACE DEPENDENT >90 Normal >59 [facility] Comment on above: Result Comment: Reported eGFR is based on the CKD-EPI 2020 equation that does not use a race coefficient. Performed By: #### C BCA, CMP, FEPR, 79192-8, 7-1, 6-4, 4-8, 2131-9, 98467-0 #### [facility] ([id number]) [address], [address] [place] [address] #### 17773-3 #### [facility] ([id number]) [address] [place] [address]274 Glucose [Mass/Vol] 158 mg/dL High 65-99 [facility] Comment on above: Performed By: #### C BCA, CMP, FEPR, 34366-3, 7-1, 2276-4, 2284-8, 2131-9, 22302-3 #### [facility] ([id number]) [address] [facility], [address] [place] [address] #### 63188-8 #### [facility] ([id number]) [address] [place] [address]14 Potassium [Moles/Vol] 4.2 mmol/L Normal 3.5-5.0 [facility] Comment on above: Performed By: #### C BCA, CMP, FEPR, 89904-4, 2777-1, 2276-4, 2284-8, 2132-9, 76466-9 #### [facility] ([id number]) [address], [address] [place] [address] #### 38072-2 #### [facility] ([id number]) [address] [place] [address]1189 Protein [Mass/Vol] 6.5 g/dL Normal 6.0-8.0 [facility] Comment on above: Performed By: #### C BCA, CMP, FEPR, 79994-6, 7-1, 2276-4, 2284-8, 2131-9, 46938-9 #### [facility] ([id number]) [address], [facility] [address] [place] [address] #### 51293-6 #### [facility] ([id number]) [address] [place] [address] 68452 Sodium [Moles/Vol] 142 mmol/L Normal 134-146 [facility] Comment on above: Performed By: #### C BCA, CMP, FEPR, 15095-4, 7-1, 2276-4, 2284-8, 2131-9, 87538-6 #### [facility] ([id number]) [address], [address] [place] [address] #### 28539-6 #### [facility] ([id number]) [address] [place] [address] 25833 Urea nitrogen [Mass/Vol] 14 mg/dL Normal 5-27 [facility] Comment on above: Performed By: #### C BCA, CMP, FEPR, 92474-6, 2777-1, 2276-4, 2284-8, 2132-9, 61830-6 #### [facility] ([id number]) [address], [address] [place] [address] #### 94336-1 #### [facility] ([id number]) [address] [place] [address]70 FERRITINon 02-16-2024 Ferritin [Mass/Vol] 90 ng/mL Normal 11-307 [facility] Comment on above: Performed By: #### C BCA, CMP, FEPR, 80450-6, 2777-1, 2276-4, 4-8, 2131-9, 61542-5 #### [facility] ([id number]) [address] [facility], [address] [place] [address] #### 27063-8 #### [facility] ([id number]) [address] [place] [address] 70329 Folate [Mass/Vol]on 02-16-20 24 FOLIC ACID >25.0 Normal >5.8 [facility] Comment on above: Result Comment: NEW REFERENCE RANGE Performed By: #### C BCA, CMP, FEPR, 10829-6, 7-1, 6-4, 4-8, 2131-9, 39684-4 #### [facility] ([id number]) [address] [facility], [address] [place] [address] #### 80915-6 #### [facility] ([id number]) [address] [place] [address] 95190 IRON PROFILEon 02-16-2024 Iron [Mass/Vol] 90 ug/dL Normal 50-170 [facility] Comment on above: Performed By: #### C BCA, CMP, FEPR, 25403-0, 7-1, 2276-4, 2284-8, 2131-9, 62766-7 #### [facility] ([id number]) [address] [facility], [address] [place] [address] #### 73172-9 #### [facility] ([id number]) [address] [place] [address] 51875 IRON BINDING 409 ug/dL Normal 250-425 [facility] Comment on above: Performed By: #### C BCA, CMP, FEPR, 96424-1, 7-1, 2276-4, 2284-8, 2131-9, 36552-7 #### [facility] ([id number]) [address] [facility], [address] [place] [address] #### 52077-5 #### [facility] ([id number]) [address] [place] [address] 57150 IRON SATURATION 22 % SATURATION Normal 15-50 [facility] Comment on above: Performed By: #### C BCA, CMP, FEPR, 31579-1, 7-1, 6-4, 4-8, 2131-9, 98081-8 #### [facility] ([id number]) [address] [facility], [address] [place] [address] #### 01313-0 #### [facility] ([id number]) [address] [place] [address] 09045 MAGNESIUMon 02-16-2024 Magnesium [Mass/Vol] 1.9 mg/dL Normal 1.8-2.6 [facility] Comment on above: Performed By: #### C BCA, CMP, FEPR, 64255-3, 7-1, 6-4, 4-8, 2131-9, 13080-4 #### [facility] ([id number]) [address] [facility], [address] [place] [address] #### 08833-8 #### [facility] ([id number]) [address] [place] [address]32[address] PHOSPHORUSon 02-16-2024 Phosphate [Mass/Vol] 3.1 mg/dL Normal 2.4-4.9 [facility] Comment on above: Performed By: #### C BCA, CMP, FEPR, 56702-9, 2777-1, 2276-4, 2284-8, 2131-9, 95450-9 #### [facility] ([id number]) [address] [facility], [address] [place] [address] #### 45773-2 #### [facility] ([id number]) [address] [place] [address] Thiamine (Bld) [Moles/Vol]on 02-16-2024 Thiamin (Vitamin B1), WB 178 nmol/L Normal 70-180 [facility] Comment on above: Result Comment: NOTE ADDITIONAL INFORMATION This test was developed and its performance characteristics determined by [facility] in a manner consistent with CLIA requirements. This test has not been cleared or approved by the U.S. Food and Drug Administration. Test Performed by: [facility] [address] [place] [address] Instrumental Musician: Lsia Hoang Ph.D.; CLIA# [id number] Performed By: #### C BCA, CMP, FEPR, 27901-3, 7-1, 6-4, 4-8, 2131-9, 63507-4 #### [facility] ([id number]) [address] [facility], [address] [place] [address] #### 20799-3 #### [facility] ([id number]) [address] [place] [address] VITAMIN B12on 02-16-2024 Cobalamin (Vitamin B12) [Mass/Vol] 378 pg/mL Normal 180-914 [facility] Comment on above: Performed By: #### C BCA, CMP, FEPR, 99968-3, 2777-1, 2276-4, 2284-8, 2131-9, 09789-2 #### [facility] ([id number]) [address] [place] [address] #### 82592-6 #### [facility] ([id number]) [address] [place] [address] 75248 Vitamin D+Metabolites [Mass/ Vol]on 02-16-2024 VITAMIN D 25 HYD TOT 36.1 ng/mL Normal 30-100 [facility] Comment on above: Result Comment: Vitamin D status 25 [place] Vitamin D Deficiency <20 ng/mL Insufficiency 20-29 ng/mL Sufficiency 30-100 ng/mL Toxicity >100 ng/mL NOTE: A pediatric reference range has not been established by the marketing forecaster of this kit. The [employer] recommends a Vitamin D level of = or >20ng/mL in infants and children. Performed By: #### C BCA, CMP, FEPR, 49555-5, 2777-1, 2276-4, 2284-8, 2132-9, 08786-2 #### [facility] ([id number]) [address] [place] [address] #### 46548-6 #### [facility] ([id number]) [address] [place] [address] 98624 CBC AND AUTO DIFFon 11-24-19 24 ABSOLUTE BASOPHIL 0.0 X10E9/L Normal 0.0-0.2 [facility] Comment on above: Performed By: #### C BCA, CMP, 08432-2, 3016-3, 2276-4 #### [facility] ([id number]) [address] [place] [address]11 ABSOLUTE NEUTROPHIL 6.5 X10E9/L Normal 1.5-6.6 [facility] Comment on above: Performed By: #### C BCA, CMP, 00775-8, 3016-3, 2276-4 #### [facility] ([id number]) [address], [address] [place] [address] Basophils/100 WBC (Bld) 0.4 % Normal [facility] Comment on above: Performed By: #### C BCA, CMP, 44978-5, 3016-3, 6-4 #### [facility] ([id number]) [address], [facility] [address] [place] [address] Eosinophils (Bld) [#/Vol] 0.0 10*3/uL Normal 0.0-0.4 [facility] Comment on above: Performed By: #### C BCA, CMP, 90186-2, 6-3, 2275-4 #### [facility] ([id number]) [address], [facility] [address] [place] [address] Eosinophils/100 WBC (Bld) 0.6 % Normal [facility] Comment on above: Performed By: #### C BCA, CMP, 32818-0, 6-3, 2275-4 #### [facility] ([id number]) [address] [address] [place] [address] Erythrocyte distribution wid th (RBC) [Ratio] 13.3 % Normal 11.5-15.0 [facility] Comment on above: Performed By: #### C BCA, CMP, 60409-5, 6-3, 2275-4 #### [facility] ([id number]) [address] [address] [place] [address] Hematocrit (Bld) [Volume fraction] 43.5 % Normal 35-47 [facility] Comment on above: Performed By: #### C BCA, CMP, 88235-5, 3016-3, 2275-4 #### [facility] ([id number]) [address], [address] [place] [address] Hemoglobin (Bld) [Mass/Vol] 14.8 g/dL Normal 11.7-15. 5 [facility] Comment on above: Performed By: #### C BCA, CMP, 81953-3, 3016-3, 2275-4 #### [facility] ([id number]) [address], [address] [place] [address] Lymphocytes (Bld) [#/Vol] 1.0 10*3/uL Normal 1.0-3.5 [facility] Comment on above: Performed By: #### C BCA, CMP, 70568-4, 3016-3, 2275-4 #### [facility] ([id number]) [address], [facility] [address] [place] [address] Lymphocytes/100 WBC (Bld) 12.6 % Normal [facility] Comment on above: Performed By: #### C BCA, CMP, 95309-1, 6-3, 2275-4 #### [facility] ([id number]) [address], [address] [place] [address] MCH (RBC) [Entitic mass] 30.7 pg Normal 27-34 [facility] Comment on above: Performed By: #### C BCA, CMP, 99613-6, 3016-3, 2275- #### [facility] ([id number]) [address], [address] [place] [address] MCHC (RBC) [Mass/Vol] 34.2 g/dL Normal 32-36 [facility] Comment on above: Performed By: #### C BCA, CMP, 95910-7, 3016-3, 2275-4 #### [facility] ([id number]) [address], [address] [place] [address] MCV (RBC) [Entitic vol] 90 fL Normal 80-[address] [facility] Comment on above: Performed By: #### C BCA, CMP, 87417-3, 3016-3, 2275-4 #### [facility] ([id number]) [address], [address] [place] [address] Monocytes (Bld) [#/Vol] 0.5 10*3/uL Normal 0-0.9 [facility] Comment on above: Performed By: #### C BCA, CMP, 84036-2, 3016-3, 2276-4 #### [facility] ([id number]) [address], [address] [place] [address] Monocytes/100 WBC (Bld) 6.2 % Normal [facility] Comment on above: Performed By: #### C BCA, CMP, 87250-5, 3016-3, 6-4 #### [facility] ([id number]) [address], [address] [place] [address] Neutrophils/100 WBC (Bld) 80.2 % Normal [facility] Comment on above: Performed By: #### C BCA, CMP, 80958-1, 3016-3, 6-4 #### [facility] ([id number]) [address], [address] [place] [address] Platelet mean volume (Bld) [Entitic vol] 8.6 fL Normal 7-12 [facility] Comment on above: Performed By: #### C BCA, CMP, 25810-2, 3016-3, 2276-4 #### [facility] ([id number]) [address], [address] [place] [address] Platelets (Bld) [#/Vol] 176 10*3/uL Normal 150-450 [facility] Comment on above: Performed By: #### C BCA, CMP, 84630-3, 3016-3, 2276-4 #### [facility] ([id number]) [address], [address] [place] [address] RBC COUNT 4.84 X10E12/L Normal 3.80-5.20 [facility] Comment on above: Performed By: #### C BCA, CMP, 85993-1, 3016-3, 2276-4 #### [facility] ([id number]) [address], [address] [place] [address] WBC (Bld) [#/Vol] 8.0 10*3/uL Normal 4.0-11.0 [facility] Comment on above: Performed By: #### C BCA, CMP, 09916-4, 3016-3, 2276-4 #### [facility] ([id number]) [address], [address] [place] [address] COMPREHENSIVE METABOLIC PANE Jaiden 11-24-2023 Albumin [Mass/Vol] 4.1 g/dL Normal 3.2-5.3 [facility] Comment on above: Performed By: #### C BCA, CMP, 17351-6, 3016-3, 2276-4 #### [facility] ([id number]) [address], [address] [place] [address] ALP [Catalytic activity/Vol] 64 U/L Normal 39-130 [facility] Comment on above: Performed By: #### C BCA, CMP, 32116-6, 3016-3, 2276-4 #### [facility] ([id number]) [address], [address] [place] [address] ALT [Catalytic activity/Vol] 46 U/L High 0-31 [facility] Comment on above: Performed By: #### C BCA, CMP, 11522-3, 3016-3, 2276-4 #### [facility] ([id number]) [address], [address] [place] [address] Anion gap [Moles/Vol] 9 mmol/L Normal 5-15 [facility] Comment on above: Performed By: #### C BCA, CMP, 67004-7, 3016-3, 2276-4 #### [facility] ([id number]) [address], [address] [place] [address] AST [Catalytic activity/Vol] 32 U/L Normal 0-41 [facility] Comment on above: Performed By: #### C BCA, CMP, 94104-3, 3016-3, 2276-4 #### [facility] ([id number]) [address], [address] [place] [address] Bilirubin [Mass/Vol] 0.6 mg/dL Normal 0.3-1.2 [facility] Comment on above: Performed By: #### C BCA, CMP, 89970-6, 3016-3, 2276-4 #### [facility] ([id number]) [address], [address] [place] [address] Calcium [Mass/Vol] 9.0 mg/dL Normal 8.5-10.5 [facility] Comment on above: Performed By: #### C BCA, CMP, 69162-1, 3016-3, 2276-4 #### [facility] ([id number]) [address], [address] [place] [address] Chloride [Moles/Vol] 105 mmol/L Normal 98-109 [facility] Comment on above: Performed By: #### C BCA, CMP, 10864-0, 3016-3, 2276-4 #### [facility] ([id number]) [address], [address] [place] [address] CO2 [Moles/Vol] 27 mmol/L Normal 22-32 [facility] Comment on above: Performed By: #### C BCA, CMP, 60354-6, 3016-3, 2276-4 #### [facility] ([id number]) [address], [address] [place] [address] Creatinine [Mass/Vol] 0.66 mg/dL Normal 0.40-1.00 [facility] Comment on above: Result Comment: METH OD TRACEABLE TO IDMS STANDARD Performed By: #### C BCA, CMP, 70270-1, 3016-3, 2276-4 #### [facility] ([id number]) [address], [address] [place] [address] eGFR (CKD-EPI) NON-RACE DEPENDENT >90 Normal >59 [facility] Comment on above: Result Comment: Reported eGFR is based on the CKD-EPI 2020 equation that does not use a race coefficient. Performed By: #### C BCA, CMP, 40921-2, 3016-3, 6-4 #### [facility] ([id number]) [address], [address] [place] [address] Glucose [Mass/Vol] 130 mg/dL High 65-99 [facility] Comment on above: Performed By: #### C BCA, CMP, 82893-1, 3016-3, 2275-4 #### [facility] ([id number]) [address], [address] [place] [address] Potassium [Moles/Vol] 4.2 mmol/L Normal 3.5-5.0 [facility] Comment on above: Performed By: #### C BCA, CMP, 56848-0, 3016-3, 2275-4 #### [facility] ([id number]) [address], [address] [place] [address] Protein [Mass/Vol] 6.6 g/dL Normal 6.0-8.0 [facility] Comment on above: Performed By: #### C BCA, CMP, 10496-4, 3016-3, 2276-4 #### [facility] ([id number]) [address], [address] [place] [address] Sodium [Moles/Vol] 141 mmol/L Normal 134-146 [facility] Comment on above: Performed By: #### C BCA, CMP, 21050-8, 3016-3, 2276-4 #### [facility] ([id number]) [address], [address] [place] [address] Urea nitrogen [Mass/Vol] 16 mg/dL Normal 5-27 [facility] Comment on above: Performed By: #### C BCA, CMP, 80741-3, 3016-3, 2276-4 #### [facility] ([id number]) [address], [address] [place] [address] FERRITINon 11-24-2023 Ferritin [Mass/Vol] 90 ng/mL Normal 11-307 [facility] Comment on above: Performed By: #### C BCA, CMP, 64964-3, 3016-3, 6-4 #### [facility] ([id number]) [address], [address] [place] [address] HGB A1C (GLYCO-HGB)on 2023 Glucose [Mass/Vol] 126 mg/dL Normal [facility] Comment on above: Performed By: #### C BCA, CMP, 95251-9, 3016-3, 6-4 #### [facility] ([id number]) [address], [address] [place] [address] HbA1c (Bld) [Mass fraction] 6.0 % High 4.4-5.6 [facility] Comment on above: Result Comment: NOTE ADA Guidelines Result HgbA1c Normal : less than 5.7 % Prediabetes : 5.7 % to 6.4 % Diabetes : > 6.4 % Use with caution in patients with abnormal hemoglobin variants as the half-life of red blood cells and in vivo glycation rates are affected. Performed By: #### C BCA, CMP, 31229-5, 3016-3, 2276-4 #### [facility] ([id number]) [address], [address] [place] [address] Lipid 1996 panelon 04-09-202 4 Cholesterol [Mass/Vol] 112 mg/dL Low 150-200 [facility] Comment on above: Performed By: #### C TALAT, CMP, 16098-7, 3016-3, 6-4 #### [facility] ([id number]) [address], [address] [place] [address] Cholesterol in HDL [Mass/Vol] 41 mg/dL Normal >39 [facility] Comment on above: Result Comment: HDL <40 mg/dL - High Risk HDL > or = 40mg/dL- Desirable HDL >60 mg/dL - Negative Risk Performed By: #### C TALAT, CMP, 60442-0, 6-3, 6-4 #### [facility] ([id number]) [address] [place] [address] Cholesterol in LDL [Mass/Vol] 39 mg/dL Normal <130 [facility] Comment on above: Result Comment: LDL <100 mg/dL - Desirable LDL >160 mg/dL - High Risk Performed By: #### C TALAT, CMP, 99829-7, 6-3, 6-4 #### [facility] ([id number]) [address] [place] [address] Cholesterol in VLDL [Mass/Vol] 32 mg/dL High 0-30 [facility] Comment on above: Performed By: #### C TALAT, CMP, 24553-5, 3016-3, 6-4 #### [facility] ([id number]) [address] [place] [address] CHOLESTEROL:HDL 2.7 Normal 1.0-5.0 [facility] Comment on above: Performed By: #### C BCA, CMP, 66452-2, 3016-3, 2276-4 #### [facility] ([id number]) [address] [place] [address] Triglyceride [Mass/Vol] 161 mg/dL High 27-[address] [facility] Comment on above: Performed By: #### C BCA, CMP, 54756-5, 3016-3, 2276-4 #### [facility] ([id number]) [address] [facility] [place] [address] TSH Qnon 11-24-2023 TSH 2.43 uIU/mL Normal 0.49-4.67 [facility] Comment on above: Performed By: #### C BCA, CMP, 69408-1, 3016-3, 2276-4 #### [facility] ([id number]) [address] [place] [address] MG MAMM SCREEN 3D TYLER CADon 10-16-2022 MG MAMM SCREEN 3D TYLER CAD Patient: LOLI FLORES Exam Date: 10/16/2022 : 1950 Gender:F Ordering : DR GRISELDA MARTINEZ Admission #: [id number] Family : Order #: [id number] CLICK HERE TO VIEW EXAM RADIOLOGY REPORT PROCEDURE: MAMMOGRAM SCREENING 3D BILATERAL CAD COMPARISON: MG MAMM SCREEN TYLER W CAD, 10/12/2020. MG MAMM SCREEN 3D TYLER CAD, 10/14/2021. INDICATIONS: Screening mammography Calculator Name NCI Breast Cancer Risk Assessment Tool 5 Year Breast Cancer Risk 1.60% Lifetime Breast Cancer Risk 4.30% Personal Breast Cancer No Personal Ovarian Cancer No Treatments None Family Cancers Mother with uterine cancer at age 87. LOCATION: [facility] BREAST COMPOSITION: Scattered areas fibroglandular density. FINDINGS: DIAGNOSTIC CATEGORY 2--BENIGN FINDING. NO CHANGE FROM COMPARISON. Scattered benign-appearing calcifications are present. Scattered benign-appearing lymph nodes are present. RIGHT BREAST: No significant suspicious finding. LEFT BREAST: No significant suspicious finding. RECOMMENDATIONS: ROUTINE MAMMOGRAM AND CLINICAL EVALUATION IN 12 MONTHS. PLEASE NOTE: A NORMAL MAMMOGRAM DOES NOT EXCLUDE THE POSSIBILITY OF BREAST CANCER. A CLINICALLY SUSPICIOUS PALPABLE LUMP SHOULD BE BIOPSIED. Dictated by: Temo Carson MD on 10/17/2022 at 11:56 Approved by: Temo Carson MD on 10/17/2022 at 12:29 Normal [facility] COMPREHENSIVE METABOLIC PANE Jaiden 10-17-2021 Albumin [Mass/Vol] 4.1 g/dL Normal 3.6-5.1 [facility] Comment on above: Performed By: #### 1 0231, 7600, 63943, 62671 #### [facility] [place] [address] [employer] Supervisor: Elie Pringle MD Albumin/Globulin [Mass ratio] 1.7 {ratio} Normal 1.0-2 .5 [facility] Comment on above: Performed By: #### 1 0231, 7600, 10956, 93521 #### [facility] [place] [address] [employer] Supervisor: Elie Pringle MD ALP [Catalytic activity/Vol] 80 U/L Normal 37-153 [facility] Comment on above: Performed By: #### 1 0231, 7600, 95659, [id number] #### [facility] [place] [address] [employer] Supervisor: Elie Pringle MD ALT [Catalytic activity/Vol] 29 U/L Normal 6-29 [facility] Comment on above: Performed By: #### 1 0231, 7600, 88817, 97978 #### [facility] [place] [address] [employer] Supervisor: Elie Pringle MD AST [Catalytic activity/Vol] 20 U/L Normal 10-35 [facility] Comment on above: Performed By: #### 1 0231, 7600, 17208, 29902 #### [facility] [place] [address] [employer] Supervisor: Elie Pringle MD Bilirubin [Mass/Vol] 0.4 mg/dL Normal 0.2-1.2 [facility] Comment on above: Performed By: #### 1 0231, 7600, 93639, 55030 #### [facility] [place] [address] [employer] Supervisor: Elie Pringle MD BUN/CREATININE RATIO NOT APPLICABLE Normal 6-22 [facility] Comment on above: Performed By: #### 1 0231, 7600, 67299, 47166 #### [facility] [address], [address] [place] [address] [employer] Supervisor: Elie Pringle MD Calcium [Mass/Vol] 8.9 mg/dL Normal 8.6-10.4 [facility] Comment on above: Performed By: #### 1 0231, 7600, 78961, 97746 #### [facility] [place] [address] [employer] Supervisor: Elie Pringle MD Chloride [Moles/Vol] 104 mmol/L Normal 98-110 [facility] Comment on above: Performed By: #### 1 0231, 7600, 20208, 04208 #### [facility] [place] [address] [employer] Supervisor: Elie Pringle MD CO2 [Moles/Vol] 30 mmol/L Normal 20-32 [facility] Comment on above: Performed By: #### 1 0231, 7600, 57651, 47701 #### [facility] [place] [address] [employer] Supervisor: Elie Pringle MD Creatinine [Mass/Vol] 0.60 mg/dL Normal 0.60-0.93 [facility] Comment on above: Result Comment: For patients >49 years of age, the reference limit for Creatinine is approximately 13% higher for people identified as -Vincentian. Performed By: #### 1 0231, 7600, 53912, 35585 #### [facility] [place] [address] [employer] Supervisor: Elie Pringle MD eGFR NON-AFR. AUSTRALIAN 92 mL/min/1.73m2 Normal > OR = 60 [facility] Comment on above: Performed By: #### 1 0231, 7600, 99402, 62548 #### [facility] [address], [address] [place] [address] [employer] Supervisor: Elie Pringle MD GFR/1.73 sq M.predicted miguel g blacks MDRD (S/P/Bld) [Vol rate/Area] 107 mL/min/{1.73_m2} Normal > OR = 60 [facility] Comment on above: Performed By: #### 1 0231, 7600, 69654, 28541 #### [facility] [place] [address] [employer] Supervisor: Elie Pringle MD Globulin (S) [Mass/Vol] 2.4 g/dL Normal 1.9-3.7 [facility] Comment on above: Performed By: #### 1 0231, 7600, 21988, 42665 #### [facility] [address], [address] [place] [address] [employer] Supervisor: Elie Pringle MD Glucose [Mass/Vol] 129 mg/dL High 65-99 [facility] Comment on above: Result Comment: Fasting reference interval For someone without known diabetes, a glucose value >125 mg/dL indicates that they may have diabetes and this should be confirmed with a follow-up test. Performed By: #### 1 0231, 0, 24897, 25135 #### [facility] [address], [address] [place] [address] [employer] Supervisor: Elie Pringle MD Potassium [Moles/Vol] 4.2 mmol/L Normal 3.5-5.[address] [facility] Comment on above: Performed By: #### 1 0231, 7600, 09050, 89250 #### [facility] [address], [address] [place] [address] [employer] Supervisor: Elie Pringle MD Protein [Mass/Vol] 6.5 g/dL Normal 6.1-8.1 [facility] Comment on above: Performed By: #### 1 0231, 7600, 90610, 70221 #### [facility] [place] [address] [employer] Supervisor: Elie Pringle MD Sodium [Moles/Vol] 141 mmol/L Normal 135-146 [facility] Comment on above: Performed By: #### 1 0231, 7600, 88108, 90305 #### [facility] [address], [address] [place] [address] [employer] Supervisor: Elie Pringle MD Urea nitrogen [Mass/Vol] 16 mg/dL Normal 7-25 [facility] Comment on above: Performed By: #### 1 0231, 7600, 42764, 18684 #### [facility] [place] [address] [employer] Supervisor: Elie Pringle MD LIPID PANEL, [facility] [place] 030 Cholesterol [Mass/Vol] 181 mg/dL Normal <200 [facility] Comment on above: Order Comment: FASTI NG:YES FASTING: YES Performed By: #### 1 0231, 7600, 87808, 52849 #### [facility] [place] [address] [employer] Supervisor: Elie Pringle MD Cholesterol in HDL [Mass/Vol] 53 mg/dL Normal > OR = 50 [facility] Comment on above: Order Comment: FASTI NG:YES FASTING: YES Performed By: #### 1 0231, 7600, 75610, 98059 #### [facility] [place] [address] [employer] Supervisor: Elie Pringle MD Cholesterol in LDL [Mass/Vol] 104 mg/dL High [facility] Comment on above: Order Comment: FASTI NG:YES FASTING: YES Result Comment: Refe rence range: <100 Desirable range <100 mg/dL for primary prevention; <70 mg/dL for patients with CHD or diabetic patients with > or = 2 CHD risk factors. LDL-C is now calculated using the Won calculation, which is a validated novel method providing better accuracy than the Friedewald equation in the estimation of LDL-C. Paul SS et al. LOUIS. 2013;310(19): 0697-1176 (http://[employer].BiOWiSH/faq/SVZ198) Performed By: #### 1 0231, 7600, 95638, 78400 #### [facility] [address], [address] [place] [address] [employer] Supervisor: Elie Pringle MD Cholesterol.total/Cholestero l in HDL [Mass ratio] 3.4 {ratio} Normal <5.0 [facility] Comment on above: Order Comment: FASTI NG:YES FASTING: YES Performed By: #### 1 0231, 7600, 64820, 17929 #### [facility] [address], [address] [place] [address] [employer] Supervisor: Elie Pringle MD NON HDL CHOLESTEROL 128 mg/dL (calc) Normal <130 [facility] Comment on above: Order Comment: FASTI NG:YES FASTING: YES Result Comment: For patients with diabetes plus 1 major ASCVD risk factor, treating to a non-HDL-C goal of <100 mg/dL (LDL-C of <70 mg/dL) is considered a therapeutic option. Performed By: #### 1 0231, 7600, 06058, 26476 #### [facility] [place] [address] [employer] Supervisor: Elie Pringle MD Triglyceride [Mass/Vol] 147 mg/dL Normal <150 [facility] Comment on above: Order Comment: FASTI NG:YES FASTING: YES Performed By: #### 1 0231, 7600, 87106, 88050 #### [facility] [address], [address] [place] [address] [employer] Supervisor: Elie Pringle MD TSH+FREE T4on 10-17-2021 Free T4 [Mass/Vol] 1.2 ng/dL Normal 0.8-1.8 [facility] Comment on above: Performed By: #### 1 0231, 7600, 38563, 76237 #### [facility] [address], [address] [place] [address] [employer] Supervisor: Elie Pringle MD TSH Qn 3.54 m[IU]/L Normal 0.40-4.50 [facility] Comment on above: Performed By: #### 1 0231, 7600, 21193, 57261 #### [facility] [place] [address] [employer] Supervisor: Elie Pringle MD VITAMIN D,25-OH,TOTAL,IAon 0 10-17-2021 VITAMIN D,25-OH,TOTAL,IA 25 ng/mL Low 30-100 [facility] Comment on above: Result Comment: Yvette min D Status 25-OH Vitamin D: Deficiency: <20 ng/mL Insufficiency: 20 - 29 ng/mL Optimal: > or = 30 ng/mL For 25-OH Vitamin D testing on patients on D2-supplementation and patients for whom quantitation of D2 and D3 fractions is required, the QuestAssureD(TM) 25-OH VIT D, (D2,D3), LC/MS/MS is recommended: order code 47834 (patients >2yrs). See Note 1 Note 1 For additional information, please refer to http://education.BiOWiSH/faq/VNF751 (This link is being provided for informational/ educational purposes only.) Performed By: #### 1 0231, 7600, 71448, 33702 #### [facility] [place] [address] [employer] Supervisor: Elie Pringle MD BASIC METABOLIC PANELon 03-18 BUN/CREATININE RATIO NOT APPLICABLE Normal - [facility] Comment on above: Performed By: #### 1 0165 #### [facility] [place] [address] [employer] Supervisor: Elie Pringle MD Calcium [Mass/Vol] 8.8 mg/dL Normal 8.6-10.4 [facility] Comment on above: Performed By: #### 1 0165 #### [facility] [address], [address] [place] [address] [employer] Supervisor: Elie Pringle MD Chloride [Moles/Vol] 105 mmol/L Normal 98-110 Q[facility] t [facility] Comment on above: Performed By: #### 1 0165 #### [facility] [address], [address] [place] [address] [employer] Supervisor: Elie Pringle MD CO2 [Moles/Vol] 28 mmol/L Normal 20-32 [facility] Comment on above: Performed By: #### 1 0165 #### [facility] [place] [address] [employer] Supervisor: Elie Pringle MD Creatinine [Mass/Vol] 0.60 mg/dL Normal 0.60-0.93 [facility] st [facility] Comment on above: Result Comment: For patients >49 years of age, the reference limit for Creatinine is approximately 13% higher for people identified as -Vincentian. Performed By: #### 1 0165 #### [facility] [address], [address] [place] [address] [employer] Supervisor: Elie Pringle MD eGFR NON-AFR. AUSTRALIAN 92 mL/min/1.73m2 Normal > OR = 60 [facility] Comment on above: Performed By: #### 1 0165 #### [facility] [place] [address] [employer] Supervisor: Elie Pringle MD GFR/1.73 sq M.predicted miguel g blacks MDRD (S/P/Bld) [Vol rate/Area] 107 mL/min/{1.73_m2} Normal > OR = 60 [facility] Comment on above: Performed By: #### 1 0165 #### [facility] [place] [address] [employer] Supervisor: Elie Pringle MD Glucose [Mass/Vol] 122 mg/dL High 65-99 [facility] Comment on above: Result Comment: Fasting reference interval For someone without known diabetes, a glucose value between 100 and 125 mg/dL is consistent with prediabetes and should be confirmed with a follow-up test. Performed By: #### 1 0165 #### [facility] [place] [address] [employer] Supervisor: Elie Pringle MD Potassium [Moles/Vol] 4.3 mmol/L Normal 3.5-5.[address] [facility] Comment on above: Performed By: #### 1 0165 #### [facility] [place] [address] [employer] Supervisor: Elie Pringle MD Sodium [Moles/Vol] 139 mmol/L Normal 135-146 [facility] Comment on above: Performed By: #### 1 0165 #### [facility] [place] [address] [employer] Supervisor: Elie Pringle MD Urea nitrogen [Mass/Vol] 18 mg/dL Normal 7-25 [facility] Comment on above: Performed By: #### 1 0165 #### [facility] [place] [address] [employer] Supervisor: Elei Pringle MD CULTURE, URINE, ROUTINEon CULTURE, URINE, ROUTINE SEE NOTE Abnormal [facility] Comment on above: Result Comment: CULTURE, URINE, ROUTINE Micro Number: [id number] Test Status: Final Specimen Source: Not given Specimen Quality: Adequate Result: Greater than 100,000 CFU/mL of Escherichia coli E.coli INT PIEDAD AMOX/CLAVULANATE S <=2 AMPICILLIN S 4 AMP/SULBACTAM S <=2 CEFAZOLIN NR <=4 2 CEFEPIME S <=1 CEFTRIAXONE S <=1 CIPROFLOXACIN S <=0.25 ERTAPENEM S <=0.5 GENTAMICIN S <=1 IMIPENEM S <=0.25 LEVOFLOXACIN S <=0.12 NITROFURANTOIN S <=16 PIP/TAZOBACTAM S <=4 TOBRAMYCIN S <=1 TRIMETHOPRIM/SULFA S <=20 S=Susceptible I=Intermediate R=Resistant * = Not Tested NR = Not Reported NN = See Therapy Comments THERAPY COMMENTS Note 1: For infections other than uncomplicated UTI caused by E. coli, K. pneumoniae or P. mirabilis: Cefazolin is resistant if PIEDAD > or = 8 mcg/mL. (Distinguishing susceptible versus intermediate for isolates with PIEDAD < or = 4 mcg/mL requires additional testing.) Note 2: For uncomplicated UTI caused by E. coli, K. pneumoniae or P. mirabilis: Cefazolin is susceptible if PIEDAD <32 mcg/mL and predicts susceptible to the oral agents cefaclor, cefdinir, cefpodoxime, cefprozil, cefuroxime, cephalexin and loracarbef. Performed By: #### 3 95 #### [place] [address] [facility], [address] [place] [address] [employer] Supervisor: Elie Pringle MD Vital Signs Date Time Vital Sign Value Performing Clinician Facility 09-15-2024 13:38-0500 Body height 175.3 cm Shelley Smith [employer] Work Phone: [facility] 09-15-2024 13:38-0500 Body mass index (BMI) [Ratio] 33.51 kg/m2 Shelleybertha Chavezuch [employer] Work Phone: [facility] 09-15-2024 13:38-0500 Body temperature 97.59 [degF] Shelley Luis [employer] Work Phone: [facility] 09-15-2024 13:38-0500 Body weight 102.97 kg Shelley Luis [employer] Work Phone: [facility] 09-15-2024 13:38-0500 Diastolic blood pressure 62 mm[Hg] Shelley Luis [employer] Work Phone: [facility] 09-15-2024 13:38-0500 Heart rate 72 /min Shelley Smith [employer] Work Phone: [facility] 09-15-2024 13:38-0500 Respiratory rate 20 /min Shelleybertha Smith [employer] Work Phone: [facility] 09-15-2024 13:38-0500 SaO2% (BldA) [Mass fraction] 96 % Shelley Smith [employer] Work Phone: [facility] 09-15-2024 13:38-0500 Systolic blood pressure 134 mm[Hg] Shelley Smith [employer] Work Phone: [facility] 09-06-2024 10:38-0500 Body height 175.3 cm Laurita Davis [employer] Work Phone: [facility] 09-06-2024 10:38-0500 Body mass index (BMI) [Ratio] 33.23 kg/m2 Laurita Davis [employer] Work Phone: [facility] 09-06-2024 10:38-0500 Body weight 102.06 kg Laurita Davis [employer] Work Phone: [facility] 09-06-2024 10:38-0500 Diastolic blood pressure 77 mm[Hg] Laurita Davis [employer] Work Phone: [facility] 09-06-2024 10:38-0500 Heart rate 64 /min Laurita Davis [employer] Work Phone: [facility] 09-06-2024 10:38-0500 SaO2% (BldA) [Mass fraction] 97 % Laurita Davis [employer] Work Phone: [facility] 09-06-2024 10:38-0500 Systolic blood pressure 132 mm[Hg] Laurita Davis [employer] Work Phone: [facility] 07-01-2024 10:42-0500 Body height 175.3 cm Angela Vanessaoll [employer] Work Phone: [facility] 07-01-2024 10:42-0500 Body mass index (BMI) [Ratio] 33.49 kg/m2 Angelaclarence Summers [employer] Work Phone: [facility] 07-01-2024 10:42-0500 Body weight 102.88 kg Angela Summers APRN-SILVINO Work Phone: [facility] 07-01-2024 10:42-0500 Diastolic blood pressure 61 mm[Hg] Angela Summers APRN-SILVINO Work Phone: [facility] 07-01-2024 10:42-0500 Heart rate 68 /min Angela Summers APRN-SILVINO Work Phone: [facility] 07-01-2024 10:42-0500 Systolic blood pressure 141 mm[Hg] Angela Summers APRN-SILVINO Work Phone: [facility] 06-22-2024 13:36-0500 Body height 175.3 cm Que Celis DO Work Phone: [facility] 06-22-2024 13:36-0500 Body mass index (BMI) [Ratio] 33.2 kg/m2 Que Celis DO Work Phone: [facility] 06-22-2024 13:36-0500 Body weight 101.97 kg Que Celis DO Work Phone: [facility] 06-22-2024 09:49-0500 Body height 175.3 cm Kaylee Henley MD Work Phone: [facility] 06-22-2024 09:49-0500 Body mass index (BMI) [Ratio] 33.08 kg/m2 Kaylee Henley MD Work Phone: [facility] 06-22-2024 09:49-0500 Body weight 101.61 kg Kaylee Henley MD Work Phone: [facility] 06-22-2024 09:49-0500 Diastolic blood pressure 63 mm[Hg] Kaylee Henley MD Work Phone: [facility] 06-22-2024 09:49-0500 Systolic blood pressure 134 mm[Hg] Kaylee Henley MD Work Phone: [facility] 05-26-2024 09:28-0400 Body height 175.3 cm Shelley Smith [employer] Work Phone: [facility] 05-26-2024 09:28-0400 Body mass index (BMI) [Ratio] 32.9 kg/m2 Shelley Smith [employer] Work Phone: [facility] 05-26-2024 09:28-0400 Body temperature 97.81 [degF] Shelley Smith [employer] Work Phone: [facility] 05-26-2024 09:28-0400 Body weight 101.06 kg Shelley Smith [employer] Work Phone: [facility] 05-26-2024 09:28-0400 Diastolic blood pressure 70 mm[Hg] Shelley Smith [employer] Work Phone: [facility] 05-26-2024 09:28-0400 Heart rate 75 /min Shelley Smith [employer] Work Phone: [facility] 05-26-2024 09:28-0400 SaO2% (BldA) [Mass fraction] 96 % Shelley Smith [employer] Work Phone: [facility] 05-26-2024 09:28-0400 Systolic blood pressure 138 mm[Hg] Shelley Smith [employer] Work Phone: [facility] 05-19-2024 13:56-0400 Body height 175.3 cm Samuel MORIN Work Phone: [facility] 05-19-2024 13:56-0400 Body mass index (BMI) [Ratio] 33.02 kg/m2 Samuel [facility]ORIN [facility] 05-19-2024 13:56-0400 Body weight 101.42 kg Samuel MORIN Work Phone: [facility] 05-19-2024 13:56-0400 Diastolic blood pressure 65 mm[Hg] Samuel Lois PA Work Phone: [facility] 05-19-2024 13:56-0400 Heart rate 59 /min Samuel Lois PA Work Phone: [facility] 05-19-2024 13:56-0400 Respiratory rate 18 /min Samuel Morelossavita PA Work Phone: [facility] 05-19-2024 13:56-0400 SaO2% (BldA) [Mass fraction] 97 % Samuel Lois PA Work Phone: [facility] 05-19-2024 13:56-0400 Systolic blood pressure 140 mm[Hg] Samuel Lois PA Work Phone: [facility] 04-28-2024 15:02-0400 Body height 175.3 cm Shelley Luis [employer] Work Phone: [facility] 04-28-2024 15:02-0400 Body mass index (BMI) [Ratio] 33.17 kg/m2 Shelley Luis [employer] Work Phone: [facility] 04-28-2024 15:02-0400 Body weight 101.88 kg Shelley Chavezuch [employer] Work Phone: [facility] 03-01-2024 13:06-0400 Body height 175.3 cm Laurita Morelossavita [employer] Work Phone: [facility] 03-01-2024 13:06-0400 Body mass index (BMI) [Ratio] 33.37 kg/m2 Laurita Lois [employer] Work Phone: [facility] 03-01-2024 13:06-0400 Body weight 102.51 kg Laurita Lois [employer] Work Phone: [facility] 03-01-2024 13:06-0400 Diastolic blood pressure 67 mm[Hg] Laurita Davis [employer] Work Phone: [facility] 03-01-2024 13:06-0400 Heart rate 72 /min Laurita Davis [employer] Work Phone: [facility] 03-01-2024 13:06-0400 Respiratory rate 18 /min Laurita Davis [employer] Work Phone: [facility] 03-01-2024 13:06-0400 SaO2% (BldA) [Mass fraction] 98 % Luarita Davis [employer] Work Phone: [facility] 03-01-2024 13:06-0400 Systolic blood pressure 138 mm[Hg] Laurita Davis [employer] Work Phone: [facility] 02-26-2024 10:53-0400 Body height 175.3 cm Shelley Smith [employer] Work Phone: [facility] 02-26-2024 10:53-0400 Body mass index (BMI) [Ratio] 33.49 kg/m2 Shelley Smith [employer] Work Phone: [facility] 02-26-2024 10:53-0400 Body temperature 97.81 [degF] Shelley Smith [employer] Work Phone: [facility] 02-26-2024 10:53-0400 Body weight 102.88 kg Shelleybertha Chavezuch [employer] Work Phone: [facility] 02-26-2024 10:53-0400 Diastolic blood pressure 62 mm[Hg] Shelley Luis [employer] Work Phone: [facility] 02-26-2024 10:53-0400 Heart rate 68 /min Shelleybertha Smith [employer] Work Phone: [facility] 02-26-2024 10:53-0400 Respiratory rate 20 /min Shelley Smith [employer]ER Work Phone: [facility] 02-26-2024 10:53-0400 SaO2% (BldA) [Mass fraction] 97 % Shelley Smith [employer] Work Phone: [facility] 02-26-2024 10:53-0400 Systolic blood pressure 150 mm[Hg] Shelley Smith [employer] Work Phone: [facility] 12-23-2023 09:44-0400 Diastolic blood pressure 68 mm[Hg] Andie Verhoff PA-C Work Phone: [facility] 12-23-2023 09:44-0400 Heart rate 66 /min Andie Verhoff PA-C Work Phone: [facility] 12-23-2023 09:44-0400 SaO2% (BldA) [Mass fraction] 98 % Andie Verhoff PA-C Work Phone: [facility] 12-23-2023 09:44-0400 Systolic blood pressure 137 mm[Hg] Andie Verhoff PA-C Work Phone: [facility] 11-17-2023 11:49-0400 Body height 175.3 cm Laurita Davis [employer] Work Phone: [facility] 11-17-2023 11:49-0400 Body mass index (BMI) [Ratio] 33.52 kg/m2 Laurita Davis [employer] Work Phone: [facility] 11-17-2023 11:49-0400 Body weight 102.97 kg Laurita Davis [employer] Work Phone: [facility] 11-17-2023 11:49-0400 Diastolic blood pressure 73 mm[Hg] Laurita Davis [employer] Work Phone: [facility] 11-17-2023 11:49-0400 Heart rate 65 /min Laurita Davis [employer] Work Phone: [facility] 11-17-2023 11:49-0400 SaO2% (BldA) [Mass fraction] 100 % Laurita Davis [employer] Work Phone: [facility] 11-17-2023 11:49-0400 Systolic blood pressure 142 mm[Hg] Laurita Davis [employer] Work Phone: [facility] 10-07-2023 11:45-0500 Body height 175.3 cm Andie Verhoff PA-C Work Phone: [facility] 10-07-2023 11:45-0500 Body mass index (BMI) [Ratio] 33.37 kg/m2 Andie Verhoff PA-C Work Phone: [facility] 10-07-2023 11:45-0500 Body weight 102.51 kg Andie Verhoff PA-C Work Phone: [facility] 10-07-2023 11:45-0500 Diastolic blood pressure 73 mm[Hg] Andie Verhoff PA-C Work Phone: [facility] 10-07-2023 11:45-0500 Heart rate 62 /min Andie Verhoff PA-C Work Phone: [facility] 10-07-2023 11:45-0500 Respiratory rate 18 /min Andie Verhoff PA-C Work Phone: [facility] 10-07-2023 11:45-0500 SaO2% (BldA) [Mass fraction] 98 % Andie Verhoff PA-C Work Phone: [facility] 10-07-2023 11:45-0500 Systolic blood pressure 147 mm[Hg] Andie Verhoff PA-C Work Phone: [facility] Encounters Encounter Date Encounter Type Care Provider Facility Start: 10-07-2024 End: 10-07-2024 ambulatory [facility] Start: 09-15-2024 End: 09-15-2024 Office outpatient visit 25 minutes Shelley Brady Luis [employer] Work Phone: [facility] Comment on above: Acquired hypothyroid ism (Primary Dx); Type 2 diabetes mellitus with microalbuminuria, without long-term current use of insulin ([facility] Chronic obstructive pulmonary disease, unspecified COPD type ([facility]); Class 1 obesity due to excess calories without serious comorbidity with body mass index (BMI) of 33.0 to 33.9 in adult Start: 09-15-2024 End: 09-15-2024 ambulatory [facility] Start: 09-06-2024 End: 09-06-2024 Office outpatient visit 25 minutes Lauritadarshan Davis [employer] Work Phone: [facility] Comment on above: 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 (Primary Dx) Start: 09-06-2024 End: 09-06-2024 ambulatory [facility] Start: 08-06-2024 End: 08-11-2024 Refill Shelley Smith [employer] SUPERVISOR-BUNCH MAKER Work Phone: [facility] Internal Medicine - Family Medicine Start: 08-04-2024 End: 08-06-2024 Refill Liliya Iris [facility] Internal Medicine - Family Medicine Start: 07-01-2024 End: 07-01-2024 Postop follow up visit related to original px Angela Jane Summers OVENS SUPERVISOR-BUNCH MAKER Work Phone: [facility] General Surgery Comment on above: Inclusion cyst (Prim cresencio Dx) Start: 07-01-2024 End: 07-01-2024 ambulatory [facility] Start: 06-22-2024 End: 06-22-2024 ambulatory [facility] Start: 06-22-2024 End: 06-22-2024 Liliam Henley MD Work Phone: [facility] Start: 06-22-2024 End: 06-22-2024 Bamboo flowsheet Kaylee Henley MD Work Phone: [facility] Start: 06-22-2024 End: 06-22-2024 [facility] General [facility] Comment on above: Inclusion cyst (Prim cresencio Dx) Start: 06-22-2024 End: 06-22-2024 ambulatory [facility] Start: 06-22-2024 End: 06-22-2024 Office outpatient visit 15 minutes Kaylee Henley MD Work Phone: [facility] Comment on above: Chronic mastoiditis of right side (Primary Dx) Start: 06-22-2024 End: 06-22-2024 ambulatory KAYLEE HENLEY Not Available Start: 06-01-2024 End: 06-02-2024 Refill Chayito Brady Jose DO Work Phone: [facility] Internal Medicine - Family Medicine Comment on above: Mild intermittent as thma, unspecified whether complicated Start: 05-26-2024 End: 05-26-2024 Documentation procedure Shelley Smith OVENS SUPERVISOR-BUNCH MAKER Work Phone: [facility] Internal Medicine - Family Medicine Start: 05-26-2024 End: 05-26-2024 Office outpatient visit 25 minutes Shelley Smith OVENS SUPERVISOR-BUNCH MAKER Work Phone: [facility] Internal Medicine - Family Medicine Comment on above: Type 2 diabetes frida itus with microalbuminuria, without long- term current use of insulin ([facility]) (Primary Dx); Class 1 obesity due to excess calories with serious comorbidity and body mass index (BMI) of 33.0 to 33.9 in adult; Essential hypertension; Adjustment insomnia; Epidermoid cyst of skin; Influenza vaccination administered at current visit; Dysfunction of right eustachian tube Start: 05-26-2024 End: 05-26-2024 ambulatory [facility] Start: 05-23-2024 End: 05-23-2024 Bamboo flowsheet Lorena Amezquita CCC-A Work Phone: [facility] Start: 05-23-2024 End: 05-23-2024 Bamboo flowsheet Lorena Amezquita CCC-A Work Phone: [facility] Start: 05-23-2024 End: 05-23-2024 Clinical Support Lorena Amezquita CCC-A Work Phone: [facility] Comment on above: Plugged feeling in e ar, right (Primary Dx) Start: 05-23-2024 End: 05-23-2024 ambulatory LORENA AMEZQUITA Not Available Start: 05-19-2024 End: 05-19-2024 ambulatory [facility] Start: 05-19-2024 End: 05-19-2024 Office outpatient visit 15 minutes [facility] PATIENCE Work Phone: [facility] Comment on above: Lumbar spondylosis ( Primary Dx) Start: 05-13-2024 End: 05-16-2024 Refill Gini Su CMA [facility] Internal Medicine - Family Medicine Comment on above: Mild persistent asth ma without complication Start: 04-29-2024 End: 04-29-2024 ambulatory LEONEL Engel L[facility] Start: 04-28-2024 End: 04-28-2024 Patient encounter procedure Shelley Smith [employer]ENS SUPERVISOR-BUNCH MAKER Work Phone: [facility] Internal Medicine - Family Medicine Comment on above: Medicare annual well ness visit, subsequent (Primary Dx); Depression screening Start: 04-28-2024 End: 04-28-2024 ambulatory [facility] Start: 04-08-2024 End: 04-08-2024 Orders Only Shelley Smith OVENS SUPERVISOR-BUNCH MAKER Work Phone: [facility] Internal Medicine - Family Medicine Comment on above: Mixed hyperlipidemia ; Acquired hypothyroidism Start: 03-25-2024 End: 03-25-2024 ambulatory [facility] Start: 03-25-2024 End: 03-28-2024 ambulatory [facility] Start: 03-22-2024 End: 03-22-2024 Telephone encounter Christin Silver CNA [facility] Start: 03-14-2024 End: 03-15-2024 Refill Shelley Jose Antonio Smith OVENS SUPERVISOR-BUNCH MAKER Work Phone: [facility] Internal Medicine - Family Medicine Start: 03-01-2024 End: 03-01-2024 Office outpatient visit 25 minutes Laurita Davis OVENS SUPERVISOR-BUNCH MAKER Work Phone: [facility] Comment on above: 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 (Primary Dx) Start: 03-01-2024 End: 03-01-2024 ambulatory BRYNN DAVISON [facility] Start: 02-26-2024 End: 02-26-2024 ambulatory [facility] Start: 02-26-2024 End: 02-26-2024 Office outpatient visit 15 minutes Shelley L Luis OVENS SUPERVISOR-BUNCH MAKER Work Phone: [facility] Internal Medicine - Family Medicine Comment on above: Adjustment insomnia (Primary Dx); Type 2 diabetes mellitus with microalbuminuria, without long-term current use of insulin ([facility]); Essential hypertension Start: 02-26-2024 End: 02-26-2024 ambulatory [facility] Start: 02-16-2024 End: 02-16-2024 Orders Only Shelley L Luis OVENS SUPERVISOR-BUNCH MAKER Work Phone: [facility] Internal [facility] - Family Medicine Start: 02-15-2024 End: 02-16-2024 Refill Girselda Cutleraneudy OVENS SUPERVISOR-BULLDOZER ENGINEER Work Phone: [facility] Internal Medicine - Family Medicine Comment on above: Adjustment insomnia Start: 12-23-2023 End: 12-23-2023 Office outpatient visit 25 minutes Laurita Davis OVENS SUPERVISOR-BUNCH MAKER Work Phone: [facility] Comment on above: Primary osteoarthrit is of left knee (Primary Dx); Lumbar spondylosis; Unspecified mononeuropathy of bilateral lower limbs Start: 12-23-2023 End: 12-23-2023 ambulatory ANDIE VU [facility] Start: 12-11-2023 End: 12-11-2023 Refill Margaret John [facility] Internal Medicine - Family Medicine Comment on above: Mild intermittent as thma, unspecified whether complicated Start: 12-04-2023 End: 12-04-2023 ambulatory LEONEL Engel L[facility]IE [facility] Start: 11-24-2023 End: 11-24-2023 ambulatory [facility] Start: 11-24-2023 End: 11-24-2023 ambulatory [facility] Start: 11-17-2023 End: 11-17-2023 Office outpatient visit 25 minutes Laurita M Lois OVENS SUPERVISOR-BUNCH MAKER Work Phone: [facility] Comment on above: 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 (Primary Dx) Start: 11-17-2023 End: 11-17-2023 ambulatory [facility] Start: 10-29-2023 Refill Liliya Iris [facility] Internal Medicine - Family Medicine Comment on above: Acquired hypothyroid ism; Mixed hyperlipidemia Start: 10-19-2023 Orders Only Griselda Martinez OVENS SUPERVISOR-BULLDOZER ENGINEER Work Phone: [facility] Internal Medicine - Family Medicine Comment on above: Adjustment insomnia Start: 10-15-2023 Orders Only Griselda Wagner Hollyaneudy OVENS SUPERVISOR-BULLDOZER ENGINEER Work Phone: [facility] Internal Medicine - Family Medicine Comment on above: Adjustment insomnia Start: 10-12-2023 Refill Liliya Iris [facility] Internal [facility] - Family Medicine Comment on above: Adjustment insomnia Start: 10-07-2023 End: 10-07-2023 Office outpatient visit 15 minutes Andie Vu PA-C Work Phone: [facility] Comment on above: Primary osteoarthrit is of left knee (Primary Dx); Disorder of sacrum Start: 09-28-2023 Orders Only Griselda Martinez OVENS SUPERVISOR-BULLDOZER ENGINEER Work Phone: [facility] Internal Medicine - Family Medicine Start: 09-22-2023 Refill Margaret Lopez [facility] - Family Medicine Comment on above: Mild persistent asth ma without complication Start: 09-09-2023 Refill Nereyda Wolfhan [facility] Family Medicine Comment on above: Acquired hypothyroid ism; Mixed hyperlipidemia; Mild intermittent asthma, unspecified whether complicated Start: 08-15-2023 Refill Marthaarleth bridges OVENS SUPERVISOR-BUNCH MAKER Work Phone: [facility] Internal Medicine - Family Medicine Comment on above: Mild persistent asth ma without complication (Primary Dx) Start: 08-11-2023 Refill Paulette Tilley kai [facility] Internal Medicine - Family Medicine Start: 08-05-2023 End: 08-05-2023 ambulatory LORENA AMEZQUITA Not Available Start: 10-16-2022 End: 10-17-[address] TEMO CARSON Facility:H1 Procedures Date Procedure Procedure Detail Performing Clinician Start: 09-15-2024 Hemoglobin glycosyla kosta a1c Shelley L Luis OVENS SUPERVISOR-BUNCH MAKER Work Phone: Start: 09-15-2024 Adult depression scr eening assessment Shelley Luis [employer]ENS SUPERVISOR-BUNCH MAKER Work Phone: Start: 05-26-2024 Adult depression scr eening assessment Shelley Luis OVENS SUPERVISOR-BUNCH MAKER Work Phone: Start: 04-28-2024 Adult depression scr eening assessment Shelley Luis OVENS SUPERVISOR-BUNCH MAKER Work Phone: Start: 04-20-2024 Colonoscopy Shelley Gill ch [employer] SUPERVISOR-BUNCH MAKER Work Phone: Start: 02-26-2024 Hemoglobin glycosyla kosta a1c Shelley L Luis [employer]ENS SUPERVISOR-BUNCH MAKER Work Phone: Start: 02-26-2024 Adult depression scr eening assessment Laurita Davis OVENS SUPERVISOR-BUNCH MAKER Work Phone: Start: 11-24-2023 Adult depression scr eening assessment Margaret Lopez [facility] Start: 10-19-2023 Mammography Liliya Post ell CONTINUOUS IMPROVEMENT BLACK BELT Start: 07-23-2023 Adult depression scr eening assessment Paulette De CONTINUOUS IMPROVEMENT BLACK BELT Start: 10-17-2022 Mammography Paulette Pickett concetta [facility] Plan of Treatment Date Care Activity Detail Author Start: 04-20-2034 Screening for malign ant neoplasm of colon [facility] Start: 09-15-2025 Adult BMI Screening Adult BMI Screen ing [facility] Start: 09-15-2025 Depression Screening Depression Scre ening [facility] Start: 09-15-2025 Fall Risk Screening Fall Risk Screen ing [facility] Start: 09-15-2025 Tobacco Screening Tobacco Screening [facility] Start: 09-06-2025 Adult BMI Screening Adult BMI Screen ing [facility] Start: 07-25-2025 DTaP,Tdap and Td Vaccines (2 - Td or Tdap) DTaP,Tdap and Td Vaccines (2 - Td or Tdap) [facility] Start: 07-01-2025 Adult BMI Screening Adult BMI Screen ing [facility] Start: 07-01-2025 Tobacco Screening Tobacco Screening [facility] Start: 06-22-2025 Adult BMI Screening Adult BMI Screen ing [facility] Start: 06-22-2025 Tobacco Screening Tobacco Screening [facility] Start: 05-26-2025 Adult BMI Screening Adult BMI Screen ing [facility] Start: 05-26-2025 Depression Screening Depression Scre ening [facility] Start: 05-26-2025 Tobacco Screening Tobacco Screening [facility] Start: 05-19-2025 Adult BMI Screening Adult BMI Screen ing [facility] Start: 05-19-2025 Tobacco Screening Tobacco Screening [facility] Start: 05-04-2025 End: 05-04-2025 Patient encounter procedure 05/04/2025 1:40 PM EDT [facility] [address] [place] [address] [facility] - Family [facility] Start: 04-29-2025 Tobacco Screening Tobacco Screening [facility] Start: 04-28-2025 Adult BMI Screening Adult BMI Screen ing [facility] Start: 04-28-2025 Depression Screening Depression Scre ening [facility] Start: 04-28-2025 Fall Risk Screening Fall Risk Screen ing [facility] Start: 04-28-2025 Medicare Annual Well ness Visit Medicare Annual Wellness Visit [facility] Start: 03-01-2025 Adult BMI Screening Adult BMI Screen ing [facility] Start: 03-01-2025 Tobacco Screening Tobacco Screening [facility] Start: 02-25-2025 Depression Screening Depression Scre ening [facility] Start: 02-25-2025 Fall Risk Screening Fall Risk Screen ing [facility] Start: 01-11-2025 Screening for malign ant neoplasm of colon Colonoscopy [facility] Comment on above: Postponed from 03/23 (Not Indicated) Start: 12-22-2024 Tobacco Screening Tobacco Screening [facility] Start: 12-03-2024 Tobacco Screening Tobacco Screening [facility] Start: 11-23-2024 Adult BMI Screening Adult BMI Screen ing [facility] Start: 11-23-2024 Depression Screening Depression Scre ening [facility] Start: 11-23-2024 Diabetic foot examination Diabetic Foot Exam [facility] Start: 11-23-2024 Fall Risk Screening Fall Risk Screen ing [facility] Start: 11-22-2024 End: 11-22-2024 ambulatory 11/22/2024 1:30 PM EDT Support Visit [facility] Internal Medicine - Family Medicine [address] [place] [address] Eric Neumann, DO [address], [facility] [place] [address] [facility] - Family Medicine Start: 11-16-2024 Adult BMI Screening Adult BMI Screen ing [facility] Start: 11-01-2024 End: 11-01-2024 Patient encounter procedure 11/01/2024 11:00 AM EDT Office Visit [facility] [address] [place] [phone] Laurita Davis, OVENS SUPERVISOR-BUNCH MAKER [address] [place] [address] [facility] Start: 10-18-2024 Screening for malign ant neoplasm of breast Mammogram [facility] Start: 10-07-2024 Adult BMI Screening Adult BMI Screen ing [facility] Start: 10-07-2024 Tobacco Screening Tobacco Screening [facility] Start: 10-07-2024 End: 10-07-2024 Admission to same day surgery center [facility] Comment on above: RADIOFREQUENCY ABLAT ION PERIPHERAL NERVE RIGHT CLUNEAL RFA [04468 (CPT )] RADIOFREQUENCY ABLAT ION PERIPHERAL NERVE RIGHT CLUNEAL [25166 (CPT )] Start: 10-07-2024 End: 10-07-2024 Dstrj neurolytic agent other peripheral nerve RADIOFREQUENCY ABLATION PERIPHERAL NERVE Other specified mononeuropathies of right lower limb 10/07/2024 9:30 AM EST [facility] Start: 10-07-2024 Subsequent hospital visit by physician 10/07/2024 9:30 AM EST Hospital Encounter [facility] [address] [place] [phone] Leonel Louie MD [address] [place] [address] [facility] Start: 09-15-2024 End: 09-15-2024 Patient encounter procedure 09/15/2024 1:40 PM EST Office Visit [facility] Internal Medicine - Family Medicine [address] [place] [address] Shelley Smith, OVENS SUPERVISOR-BUNCH MAKER [address] [place] [address] [facility] Internal Medicine Family [facility] Start: 08-18-2024 End: 08-18-2024 Patient encounter procedure 08/18/2024 9:20 AM EST Office Visit [facility] Internal Medicine - Family Medicine [address] [place] [address] Shelley Smith, OVENS [facility] [address] [place] [address] [facility] Internal [facility] Start: 07-24-2024 Tobacco Screening Tobacco Screening [facility] Start: 07-23-2024 Adult BMI Screening Adult BMI Screen ing [facility] Start: 07-23-2024 Depression Screening Depression Scre ening [facility] Start: 07-23-2024 Fall Risk Screening Fall Risk Screen ing [facility] Start: 07-01-2024 End: 07-01-2024 Patient encounter procedure 07/01/2024 10:45 AM EST Office Visit [facility] General Surgery [address] [place] [address] Angela Summers, [facility] [address] [place] [address] [facility] General Surgery Start: 06-22-2024 End: 06-22-2024 Patient encounter procedure 06/22/2024 9:50 AM EST Office Visit [facility] [address] [facility] [address] [place] [address] Kaylee Henley MD [address] [place] [address] Arrived [facility] Comment on above: Arrived Start: 05-26-2024 End: 05-26-2024 Patient encounter procedure 05/26/2024 9:20 AM EDT Office Visit [facility] Internal Medicine Family [facility] [address] [place] [address] Shelley Smith, OV[employer] SUPERVISOR-BUNCH MAKER [address] [place] [address] [facility] Internal Medicine - Family Medicine Start: 05-23-2024 End: 05-23-2024 Clinical Support 05/23/2024 9:30 AM EDT Clinical Support [facility] [address] [place] [phone] Lorena Amezquita, [facility] [address] [place] [address] Arrived [facility] Comment on above: Arrived Start: 05-19-2024 End: 05-19-2024 Patient encounter procedure 05/19/2024 1:45 PM EDT Office Visit [facility] [address] [place] [phone] Samuel Davis PA [address] [place] [address] [facility] Start: 04-29-2024 End: 04-29-2024 Admission to same day surgery center 04/29/2024 2:25 PM EDT - 04/29/2024 2:32 PM EDT Surgery [facility] [address] [place] [phone] Leonel Louie MD [address] [place] [address] INJECTION BLOCK NERVE RIGHT CLUNEAL [46269 (CPT )] [facility] Comment on above: INJECTION BLOCK NERV E RIGHT CLUNEAL [14593 (CPT )] Start: 04-29-2024 End: 04-29-2024 Injection aa&/strd other peripheral nerve/branch INJECTION BLOCK NERVE Other specified mononeuropathies of right lower limb 04/29/2024 2:25 PM EDT [facility] Start: 04-29-2024 Subsequent hospital visit by physician 04/29/2024 2:25 PM EDT Hospital Encounter [facility] [address] [place] [address] Leonel Louie MD [address] [place] [address] [facility] Start: 04-28-2024 End: 04-28-2024 Patient encounter procedure 04/28/2024 3:20 PM EDT [facility] [address] [place] [address] [facility] - Family Medicine Start: 04-19-2024 End: 04-19-2024 Patient encounter procedure 04/19/2024 11:00 AM EDT Office Visit [facility] [address] [place] [address] Laurita Davis, OVENS SUPERVISOR-BUNCH MAKER [address] [place] [address] [facility] Start: 04-17-2024 Influenza vaccination [facility] Start: 04-05-2024 End: 04-05-2024 Patient encounter procedure 04/05/2024 3:00 PM EDT Office Visit [facility] Internal Medicine - Family Medicine [address] [place] [address] [facility] - Family Medicine Start: 03-31-2024 Medicare Annual Well ness Visit Medicare Annual Wellness Visit [facility] Start: 03-30-2024 End: 03-30-2024 Patient encounter procedure 03/30/2024 11:15 AM EDT Office Visit [facility] [address] [place] [address] Andie Vu, ADAM [address] [place] [address] [facility] Start: 03-25-2024 End: 03-25-2024 Admission to same day surgery center [facility] Comment on above: INJECTION BLOCK NERV E RIGHT CLUNEAL NERVE BLOCK [23435 (CPT )] INJECTION BLOCK NERV E RIGHT CLUNEAL [25620 (CPT )] Start: 03-25-2024 End: 03-25-2024 Injection aa&/strd other peripheral nerve/branch INJECTION BLOCK NERVE Other specified mononeuropathies of right lower limb 03/25/2024 8:48 AM EDT [place] [facility] Start: 03-25-2024 Subsequent hospital visit by physician [facility] Start: 03-25-2024 End: 03-25-2024 Patient encounter procedure 03/25/2024 7:55 AM EDT Appointment [facility] [address] [place] [phone] Leonel Louie MD [address] [facility] [address] [facility] Start: 03-01-2024 End: 03-01-2024 Patient encounter procedure 03/01/2024 1:00 PM EDT Office Visit [facility] [address] [facility] [phone] Laurita Davis, OVENS SUPERVISOR-BUNCH MAKER [address] [place], [place] [id number] [facility] Start: 12-30-2023 End: 12-30-2023 Patient encounter procedure 12/30/2023 11:15 AM EDT Office Visit [facility] [address] [place] [address] Andie Vu, ADAM [address] [place] [address] [facility] Start: 12-22-2023 End: 12-22-2023 Patient encounter procedure 12/22/2023 10:15 AM EDT Office Visit [facility] [address] [place] [address] Laurita Davis, OVENS SUPERVISOR-BUNCH MAKER [address] [place] [address] [facility] Start: 12-04-2023 End: 12-04-2023 Admission to same day surgery center 12/04/2023 8:58 AM EDT - 12/04/2023 9:04 AM EDT Surgery [facility] [address] [place] [phone] Leonel Louie MD [address] [place] [address] INJECTION BLOCK NERVE RIGHT CLUNEAL [54140 (CPT )] [facility] Comment on above: INJECTION BLOCK NERV E RIGHT CLUNEAL [86468 (CPT )] Start: 12-04-2023 End: 12-04-2023 Injection aa&/strd other peripheral nerve/branch INJECTION BLOCK NERVE Other specified mononeuropathies of right lower limb 12/04/2023 8:58 AM EDT [facility] Start: 12-04-2023 Subsequent hospital visit by physician 12/04/2023 8:58 AM EDT Hospital Encounter [facility] [address] [place] [phone] Leonel Louie MD [address] [place] [address] [facility] Start: 11-24-2023 End: 11-24-2023 Patient encounter procedure 11/24/2023 9:00 AM EDT Office Visit [facility] Internal Medicine - Family Medicine [address] [place] [address] Griselda Martinez, OVENS SUPERVISOR-BULLDOZER ENGINEER [address] [place] [facility] [place] [address] [facility] Medicine - Family Medicine Start: 11-12-2023 Diabetic foot examination Diabetic Foot Exam [facility] Start: 10-18-2023 Screening for malign ant neoplasm of breast Mammogram [facility] Start: 10-07-2023 End: 10-07-2023 Patient encounter procedure 10/07/2023 12:00 PM EST Office Visit [facility] [address] [place] [id number] Andie Vu, ADAM [address] [place] [address] [facility] Start: 09-29-2023 End: 09-29-2023 Patient encounter procedure 09/29/2023 10:15 AM EST Office Visit [facility] [address] [place] [phone] Andie Vu PA-C [address] [place] [address] [facility] Start: 08-25-2023 Adult BMI Follow Up Plan Adult BMI F ollow Up Plan [facility] Start: 08-19-2023 End: 08-19-2023 Patient encounter procedure 08/19/2023 12:15 PM EST Office Visit [facility] [address] [place] [phone] Andie Vu PA-C [address] [place] [address] [facility] Start: 06-10-2023 Administration of varicella zoster vaccine Zoster (Shingles) Vaccine (3 of 3) [facility] Start: 1991 Screening for malign ant neoplasm of breast Mammogram [facility] Start: 1969 Adult BMI Follow Up Plan Adult BMI F ollow Up Plan [facility] Start: 1950 Glaucoma screening Diabetic Op hthalmology Exam [facility] Start: 1950 Screening for malign ant neoplasm of colon [facility] Start: 1950 Statin Use: Diabetic Statin Use: Kimberly betic [facility] End: 09-15-2025 Comprehensive metabolic 2000 panel - Serum or Plasma Comprehensive metabolic panel Lab Routine Type 2 diabetes mellitus with microalbuminuria, without long-term current use of insulin ([facility]) 1 Occurrences starting 09/15/2024 until 09/15/2025 [employer] Work Phone: Comment on above: 1 Occurrences starti ng 09/15/2024 until 09/15/2025 Injection aa&/strd o ther peripheral nerve/branch INJECTION BLOCK NERVE Other specified mononeuropathies of right lower limb [facility] End: 09-15-2025 Microalbumin - Albumin: Creatinine Urine Ratio Microalbumin - Albumin: Creatinine Urine Ratio Lab Routine Type 2 diabetes mellitus with microalbuminuria, without long-term current use of insulin ([facility]) 1 Occurrences starting 09/15/2024 until 09/15/2025 [facility] [employer] [facility] Comment on above: 1 Occurrences starti ng 09/15/2024 until 09/15/2025 End: 06-22-2025 Surgical Pathology Surgical Pathology Pathology and Cytology Routine Inclusion cyst 1 Occurrences starting 06/22/2024 until 06/22/2025 [facility]: Comment on above: 1 Occurrences starti ng 06/22/2024 until 06/22/2025 End: 09-15-2025 Thyroid profile includes TSH FT4 Thyroid profile includes TSH FT4 Lab Routine Acquired hypothyroidism 1 Occurrences starting 09/15/2024 until 09/15/2025 [facility] Comment on above: 1 Occurrences starti ng 09/15/2024 until 09/15/2025 Immunizations Immunization Date Immunization Notes Care Provider Fa cili 05-26-2024 Seasonal trivalent influenza vaccine, adjuvanted, preservative free Shelley Smith [employer] Work Phone: [facility] 05-26-2024 Immunization, In Clinic,; Translations: [Drug or medicament (substance)] Shelley Smith [employer] Work Phone: [facility] 08-21-2023 zoster vaccine recombinant [facility] 05-18-2023 Influenza, High-dose , Quadrivalent [facility]riciaetta [facility] 05-18-2023 influenza virus vacc ine, unspecified formulation Laurita Davis [employer] Work Phone: [facility] 04-15-2023 zoster vaccine recombinant [facility] 04-15-2023 zoster vaccine, unspecified formulation [facility] 05-23-2022 Influenza, High-dose , Quadrivalent [facility] 07-05-2021 COVID-19, mRNA, LNP- S, PF, 100mcg/0.5mL Dose [facility] 07-05-2021 COVID-19, mRNA, LNP- S, PF, 30mcg/0.3mL Dose [facility] 05-21-2021 Influenza, High-dose , Quadrivalent [facility] 10-29-2020 COVID-19, mRNA, LNP- S, PF, 30mcg/0.3mL Dose [facility] 10-08-2020 COVID-19, mRNA, LNP- S, PF, 30mcg/0.3mL Dose [facility] 05-24-2020 influenza, intraderm al, quadrivalent, preservative free, injectable Paulette [facility] 06-07-2019 influenza, high dose seasonal, preservative-free [facility] 05-31-2019 influenza, injectabl e, quadrivalent, preservative free Paulette [facility] 05-26-2018 influenza, high dose seasonal, preservative-free [facility] 08-04-2017 pneumococcal polysaccharide vaccine, 23 valent [facility] 07-17-2017 pneumococcal polysaccharide vaccine, 23 valent Paulette De [facility] 05-17-2017 influenza, injectabl e, quadrivalent, contains preservative Shelley Smith APRN-BUNCH [employer]KER Work Phone: [facility] 05-17-2017 influenza, injectabl e, quadrivalent, preservative free [facility] 06-17-2016 influenza virus vacc ine, unspecified formulation Paulette [facility] 07-25-2015 pneumococcal conjuga te vaccine, 13 valent [facility] 07-25-2015 tetanus toxoid, redu tomy diphtheria toxoid, and acellular pertussis vaccine, adsorbed [facility] 05-30-2015 influenza, injectabl e, quadrivalent, preservative free [facility] 05-17-2015 influenza, seasonal, injectable, preservative free [facility] 05-17-2012 pneumococcal polysaccharide vaccine, 23 valent Paulette [facility] 04-30-2011 zoster vaccine, live Thiago jane [facility] 01-01-2011 pneumococcal polysaccharide vaccine, 23 valent [facility] 06-26-2008 pneumococcal polysaccharide vaccine, 23 valent [facility] 12-20-1999 hepatitis B vaccine, adult dosage [facility] 07-19-1999 hepatitis B vaccine, adult dosage [facility] 06-17-1999 hepatitis B vaccine, adult dosage Paulette De [facility] Payers Date Payer Category Payer Managed Care Other (unspecified) [facility] [id number] 2018 Private Health Insurance [id number] 2016 [employer] [facility] [id number] 2016 Government (not [facility] care or Medicaid) [id number] 2016 Medicare [id number] .[id number] 2016 Unknown [id number] 1.13.693.2 .[id number] 2016 Unknown [id number] 1959 Medicare [id number] 1959 Unknown [id number] 1950 Unknown [id number] 2.16840.1.784514.3.579.2 .593 1951 Unknown [id number] 2.16840.1.661817.3.579.2 .1259 1951 Unknown [id number] 2.16840.1.104826.3.579.2 .1259 1951 Unknown [id number] 2.840.1.230882.3.579.2 .1259 1951 Unknown [id number] 2.16840.1.277772.3.579.2 .1286 1951 Unknown [id number] 2.840.1.066175.3.579.2 .1286 1951 Unknown [id number] 2.16840.1.586406.3.579.2 .1286 1951 Unknown [id number] 2.16840.1.462382.3.579.2 .1286 1951 Unknown [id number] 2.16840.1.797464.3.579.2 .1286 1951 Unknown [id number] 2.16840.1.377247.3.579.2 .1286 1951 Unknown [id number] 2.16840.1.972244.3.579.2 .1286 1951 Unknown [id number] 2.16840.1.500923.3.579.2 .1286 1951 Unknown [id number] 2.16.840.1.065352.3.579.2 .1285 1951 Unknown [id number] 2..840.1.970843.3.579.2 .1285 1951 Unknown [id number] 2..840.1.880307.3.579.2 .1285 1951 Unknown [id number] 2.840.1.168606.3.579.2 .1285 1951 Unknown [id number] 2.840.1.637898.3.579.2 .1285 1951 Unknown [id number] 2.840.1.887228.3.579.2 .1285 1951 Unknown [id number] 2.0.1.652567.3.579.2 .1285 1951 Unknown [id number] 2.840.1.927321.3.579.2 .1285 1951 Unknown [id number] 2.840.1.293812.3.579.2 .1285 1951 Unknown [id number] 2.840.1.874018.3.579.2 .1285 1951 Unknown [id number] 2.840.1.498916.3.579.2 .1285 1951 Unknown [id number] 2.840.1.812512.3.579.2 .1285 1951 Unknown [id number] 2.840.1.826556.3.579.2 .1285 1951 Unknown [id number] 2.840.1.596110.3.579.2 .1285 1951 Unknown [id number] 2.840.1.063694.3.579.2 .1285 1951 Unknown [id number] 2.840.1.268793.3.579.2 .1286 1951 Unknown [id number] 2.16.840.1.648980.3.579.2 .1286 1951 Unknown [id number] 2.16.840.1.586354.3.579.2 .1286 Social History Date Type Detail Facility Start: 06-04-2022 End: 02-11-2023 Tobacco smoking status NHIS Never smoked tobacco [facility] Start: 06-04-2022 End: 02-11-2023 Tobacco use and exposure Smokeless tobacco non-user [facility] Start: 08-05-2023 End: 06-22-2024 Alcoholic beverage intake Ex-drinker (finding) [facility] Start: 04-30-2022 End: 02-11-2023 History of Social function [facility] Start: 04-30-2022 End: 02-11-2023 Tobacco use panel [facility] Start: 1950 Sex assigned at Not on file P [facility] Start: 06-22-2024 End: 07-01-2024 Alcoholic beverage intake Current non-drinker of alcohol (finding) [facility] Has the [employer], or [employer] threatened to shut off services in your home in past 12Mo No [facility] Do you belong to any clubs or organizations such as sabianist groups, unions, fraternal or athletic groups, or school groups? Yes [facility] Are you now , , , , never or living with a partner? [facility] How often to you hav e a drink containing alcohol? Never [facility] Average Number of Drinks Not on file [facility] Do you feel stress - tense, restless, nervous, or anxious, or unable to sleep at night because your mind is troubled all the time - these days [OSQ] Very much [facility] Start: 03-22-2015 Sex Female (finding) [facility] Goals Date Patient Goal Desired Activity /State Personal health goal Comment on above: Formatting of this n ote might be different from the original. Evaluation of progress towards goal: Safe dc transition from hospital to home with family support. Clinical Notes 08-11-2023 to 09-15-2024 Shelley Smith, [facility] - 09/15/2024 1:40 PM Sonia Carolyn Lois, [facility] - 09/06/2024 9:45 AM ESTPatient InstructionsBoazclarence Summers, [facility] - 07/01/2024 10:45 AM ESTPatient Instructions Note Date & Type Note Facility 09-15-2024 History of Presen t illness Narrative [address] [place] [address] Patient: Loli Flores Date of : 1950 Encounter Date: 09/15/2024 History of Present Illness: The patient is a 74 y.o. female, an established patient, and is here for Chief Complaint Patient presents with controlled meds . HPI Patient is here for her chronic medical problem follow-up. She is due for an A1c in her last 1 was at goal of less than 7%. She had her diabetic eye exam through [facility] and it was negative in July of 2024. Patient states her COPD is under good control with Symbicort. She does need to use a wedge pillow to prop herself up when sleeping as she does struggle with shortness of breath when laying down flat. Patient is seeing a GI specialist who was prescribing her Flagyl continuously for the last 2 years for ongoing bloating and indigestion. Patient's sees her bariatric surgeon once a year. Problem List Items Addressed This Visit Respiratory Chronic obstructive lung disease ([facility]) Digestive Obesity Endocrine Type 2 diabetes mellitus with microalbuminuria, without long-term current use of insulin ([facility]) Relevant Orders Comprehensive metabolic panel POCT Hemoglobin A1c (Completed) Microalbumin - Albumin: Creatinine Urine Ratio Hypothyroidism - Primary Relevant Medications levothyroxine (SYNTHROID, LEVOTHROID) 25 MCG tablet Other Relevant Orders Thyroid profile includes TSH FT4 Past Medical, Family, and Social History Update: The following portions of the patient's history were reviewed and updated as appropriate: allergies, current medications, past family history, past medical history, past social history, past surgical history and problem list. Past Medical History: Diagnosis Date Anxiety Arthritis Asthma Cellulitis Chronic obstructive lung disease ([facility]) 03/25/2017 Chronic pain disorder Diabetes mellitus ([facility]) 12/2018 since weightloss Sx Essential hypertension 04/30/2022 Hyperlipidemia Patient states she no longer has Hypothyroid Joint pain Low back pain Prolonged emergence from general anesthesia Rash reaction to clindamycin Sciatica Visual impairment contacts Past Surgical History: Procedure Laterality Date BARIATRIC SURGERY 01/11/2019 gastric bypass CHOLECYSTECTOMY COLONOSCOPY 01/10/2015 single polyp EXCISION BENIGN SKIN LESION TRUNK / ARM / LEG 06/22/2024 In office excision of inclusion cyst of left buttock EXCISION LIPOMA Left 07/19/2019 Performed by Que Celis DO at [facility] HYSTERECTOMY INJECTION BLOCK NERVE RIGHT CLUNEAL Right 04/29/2024 Performed by Leonel Louie MD at [facility] INJECTION BLOCK NERVE RIGHT CLUNEAL Right 12/04/2023 Performed by Leonel Louie MD at [facility] INJECTION BLOCK NERVE KNEE Left Genicular Left 05/22/2023 Performed by Leonel Louie MD at [facility] INJECTION BLOCK SACROILIAC JOINT Right 07/25/2022 Performed by Leonel Louie MD at [facility] INJECTION BLOCK SACROILIAC JOINT Right 06/20/2022 Performed by Leonel Louie MD at [facility] RADIOFREQUENCY ABLATION GENICULAR Left 07/24/2023 Performed by Leonel Louie MD at [facility] Current Outpatient Medications Medication Sig Dispense Refill albuterol (PROVENTIL HFA;VENTOLIN HFA) 90 mcg/actuation inhaler Inhale 2 puffs every 4 (four) hours as needed for wheezing. 18 g 1 albuterol (PROVENTIL,VENTOLIN) 2.5 mg /3 mL (0.083 %) nebulizer solution Inhale 3 mL (2.5 mg total) by nebulization every 6 (six) hours as needed for wheezing. 75 mL 1 budesonide-formoteroL (SYMBICORT) 160-4.5 mcg/actuation inhaler Inhale 2 puffs in the morning and 2 puffs before bedtime. 30.6 g 1 calcium carbonate-vitamin D3 (OSCAL 500 + D) 500 mg(1,250mg) -200 units per tablet Take 1 tablet by mouth in the morning and 1 tablet in the evening. Take with meals. cycloSPORINE (RESTASIS) 0.05 % ophthalmic emulsion 1 drop in the morning and 1 drop before bedtime. escitalopram (LEXAPRO) 5 mg tablet Take 1 tablet (5 mg total) by mouth in the morning. 90 tablet 1 fluticasone propionate (FLONASE) 50 mcg/actuation nasal spray Administer 2 sprays into each nostril in the morning. 47.4 mL 1 levothyroxine (SYNTHROID, LEVOTHROID) 25 MCG tablet Take 1 tablet (25 mcg total) by mouth in the morning. 90 tablet 1 losartan (COZAAR) 50 mg tablet Take 1 tablet (50 mg total) by mouth in the morning. 90 tablet 1 meclizine (ANTIVERT) 25 mg tablet Take 1 tablet (25 mg total) by mouth 3 (three) times a day as needed for dizziness. 30 tablet 1 metroNIDAZOLE (FLAGYL) 250 mg tablet Take 1 tablet (250 mg total) by mouth in the morning. pggpyzjl-zbyc-NK-calcium &mins (THERAGRAN-M) 9 mg iron-400 mcg tablet Take 1 tablet by mouth in the morning. rosuvastatin (CRESTOR) 5 mg tablet Take 1 tablet (5 mg total) by mouth nightly. 90 tablet 1 turmeric (CURCUMIN MISC) by miscellaneous route. cyanocobalamin (VITAMIN B-12) 100 MCG tablet Take 1 tablet (100 mcg total) by mouth in the morning. 90 tablet 1 levothyroxine (SYNTHROID, LEVOTHROID) 25 MCG tablet Take 1 tablet (25 mcg total) by mouth in the morning. 7 tablet 0 No current facility-administered medications for this visit. (All medications reviewed and updated by provider since last office visit or hospitalization) Allergies: Clindamycin, Clindamycin hcl, Other, and Synvisc-one [hylan g-f 20] Tobacco History: Social History Tobacco Use Smoking Status Never Smokeless Tobacco Never (If patient a smoker, smoking cessation counseling offered) Social History: Social History Substance and Sexual Activity Alcohol Use No Review of Systems: Review of Systems Constitutional: Negative. Negative for unexpected weight change. HENT: Negative for congestion, hearing loss and sinus pressure. Eyes: Negative. Negative for redness. Respiratory: Negative. Cardiovascular: Negative. Negative for leg swelling. Gastrointestinal: Positive for abdominal distention and constipation. Endocrine: Negative. Genitourinary: Negative. Musculoskeletal: Positive for arthralgias and myalgias. Allergic/Immunologic: Negative. Neurological: Negative. Psychiatric/Behavioral: Positive for dysphoric mood (stable at this time on lexapro). Negative for sleep disturbance. Physical Exam: BP 134/62 (BP Site: Left Arm, BP Postition: Sitting, BP CUFF SIZE: M (9-13 inches)) Pulse 72 Temp 36.4 C (97.6 F) (Oral) Resp 20 Ht 175.3 cm (5' 9.02 ) Wt 103 kg (227 lb) SpO2 96% BMI 33.51 kg/m Physical Exam Vitals reviewed. Constitutional: Appearance: Normal appearance. She is obese. HENT: Head: Normocephalic. Right Ear: Tympanic membrane, ear canal and external ear normal. Decreased hearing noted. Left Ear: Tympanic membrane, ear canal and external ear normal. Decreased hearing noted. Nose: Nose normal. Mouth/Throat: Mouth: Mucous membranes are moist. Eyes: Conjunctiva/sclera: Conjunctivae normal. Neck: Vascular: No carotid bruit. Cardiovascular: Rate and Rhythm: Normal rate and regular rhythm. Pulses: Normal pulses. Heart sounds: Normal heart sounds. No murmur heard. Pulmonary: Effort: Pulmonary effort is normal. No respiratory distress. Breath sounds: Normal breath sounds. Abdominal: General: Abdomen is flat. Bowel sounds are normal. There is distension (bloating lower quadrants). Tenderness: There is no abdominal tenderness. Comments: Obese Musculoskeletal: Cervical back: Neck supple. Right lower leg: No edema. Left lower leg: No edema. Lymphadenopathy: Cervical: No cervical adenopathy. Skin: General: Skin is warm and dry. Capillary Refill: Capillary refill takes less than 2 seconds. Neurological: General: No focal deficit present. Mental Status: She is alert and oriented to person, place, and time. Psychiatric: Mood and Affect: Mood normal. Behavior: Behavior normal. Thought Content: Thought content normal. Judgment: Judgment normal. Assessment and Plan: Loli was seen today for controlled meds. Diagnoses and all orders for this visit: Acquired hypothyroidism - Thyroid profile includes TSH FT4; Future Type 2 diabetes mellitus with microalbuminuria, without long-term current use of insulin ([facility]) - Comprehensive metabolic panel; Future - POCT Hemoglobin A1c - Microalbumin - Albumin: Creatinine Urine Ratio; Future Chronic obstructive pulmonary disease, unspecified COPD type (CMS-HCC) Class 1 obesity due to excess calories without serious comorbidity with body mass index (BMI) of 33.0 to 33.9 in adult Other orders - levothyroxine (SYNTHROID, LEVOTHROID) 25 MCG tablet; Take 1 tablet (25 mcg total) by mouth in the morning. - cyanocobalamin (VITAMIN B-12) 100 MCG tablet; Take 1 tablet (100 mcg total) by mouth in the morning. Follow-up: Patient takes her Synthroid once a day 1st thing in the morning with water half an hour before eating. She needs her thyroid function tests rechecked today. Patient's A1c is under 7% and at goal today, no changes to medications. Patient's COPD is under good control with Symbicort and has had no recent exacerbations. Patient has history of bariatric surgery with borderline/low vitamin B12 level so will supplement with oral B12. Patient educated that she may not be able to absorb the B12 orally due to the bariatric surgery but she would like to try this before injections are given. Plan to recheck her B12 levels and 3 months. Recommend that patient has set up a DEXA screen this year. Follow up in 3 months for routine health problems. ERICH CASTELLANOS APRN-CNP 09/15/24 1510 documented in this encounter [facility] 09-06-2024 History of Presen t illness Narrative [facility] [address] [place] [address] Patient: Loli Flores Sex: female : 1950 Age: 74 y.o. PCP: ERICH CASTELLANOS 09/06/2024 Loli Flores is here for a(n) follow up. She reports pain near her right buttock has become severe. She denies any new injury or trauma. Date of onset of pain: 2020 , pain has lasted greater than 3 months. Chief Complaint Patient presents with Back Pain HPI: Right SI Joint Injection 06/20/2022 100% relief for several hours. 07/25/2022 Right SIJ with 100% relief 12/04/2023 Right Cluneal Nerve Block with 100% relief ongoing pre-proc pain 5/10 post procedure through today 0/10 Knee 07-08-22 in office Gel One injection into left knee with 90% relief 03/24/2023 Left knee Gel One injection with 75% relief 05/22/23 Lt Gen NB w/100% relief continued 07/24/2023 left Genicular NB with 90% relief continuing. Pre procedure pain 7/10; post procedure pain 1/10 04/29/24 right cluneal nerve block with 95% relief that continues Back Pain This is a chronic problem. The current episode started more than 1 year ago (4+ years). The problem occurs constantly. The problem has been gradually worsening since onset. The pain is present in the gluteal, lumbar spine and sacro-iliac (Rt side). The quality of the pain is described as burning and stabbing. The pain radiates to the right thigh. Pain scale: 5/10 today, 10/10 at night. The pain is moderate. The pain is Worse during the night. Exacerbated by: walking, stairs. Associated symptoms include leg pain (Rt thigh) and weakness (BLE). Pertinent negatives include no abdominal pain, bladder incontinence, bowel incontinence, chest pain, fever, numbness or tingling. Risk factors include poor posture and obesity. She has tried chiropractic manipulation, home exercises, ice and heat (chiropractor, previous injections,HEP, walks, lido patch, gabapentin, biofreeze; (no NSAIDS allowed per gastric bypass)) for the symptoms. The treatment provided significant relief. Knee Pain Incident location: 7+ years. There was no injury mechanism. The pain is present in the left knee. The quality of the pain is described as aching. The pain is at a severity of 0/10. The patient is experiencing no pain. The pain has been Improving since onset. Pertinent negatives include no inability to bear weight, loss of motion, loss of sensation, muscle weakness, numbness or tingling. She reports no foreign bodies present. The symptoms are aggravated by movement (ambulation). She has tried acetaminophen, ice, heat, elevation and rest (chiropractor, previous injections, HEP, walks, lido patch, gabapentin, biofreeze; (no NSAIDS allowed per gastric bypass)) for the symptoms. The treatment provided moderate relief. The effect of pain on patient's ADLS: Moderate Impairment. Past Medical History: Diagnosis Date Anxiety Arthritis Asthma Cellulitis Chronic obstructive lung disease ([facility]) 03/25/2017 Chronic pain disorder Diabetes mellitus ([facility]) 12/2018 since weightloss Sx Essential hypertension 04/30/2022 Hyperlipidemia Patient states she no longer has Hypothyroid Joint pain Low back pain Prolonged emergence from general anesthesia Rash reaction to clindamycin Sciatica Visual impairment contacts Past Surgical History: Procedure Laterality Date BARIATRIC SURGERY 01/11/2019 gastric bypass CHOLECYSTECTOMY COLONOSCOPY 01/10/2015 single polyp EXCISION BENIGN SKIN LESION TRUNK / ARM / LEG 06/22/2024 In office excision of inclusion cyst of left buttock EXCISION LIPOMA Left 07/19/2019 Performed by Que Celis DO at [facility] HYSTERECTOMY INJECTION BLOCK NERVE RIGHT CLUNEAL Right 04/29/2024 Performed by Leonel Louie MD at [facility] INJECTION BLOCK NERVE RIGHT CLUNEAL Right 12/04/2023 Performed by Leonel Louie MD at [facility] INJECTION BLOCK NERVE KNEE Left Genicular Left 05/22/2023 Performed by Leonel Louie MD at [facility] INJECTION BLOCK SACROILIAC JOINT Right 07/25/2022 Performed by Leonel Louie MD at [facility] INJECTION BLOCK SACROILIAC JOINT Right 06/20/2022 Performed by Leonel Louie MD at [facility] RADIOFREQUENCY ABLATION GENICULAR Left 07/24/2023 Performed by Leonel Louie MD at [facility] Allergies Allergen Reactions Clindamycin Hives Clindamycin Hcl Hives Other Hives Synvisc-One [Hylan G-F 20] Swelling Family History Problem Relation Age of Onset Cancer Mother Uterine cancer Mother Heart disease Father Pancreatic cancer Brother Bone cancer Nephew Social History Socioeconomic History Marital status: Spouse name: Not on file Number of children: Not on file Years of education: Not on file Highest education level: Not on file Occupational History Not on file Tobacco Use Smoking status: Never Smokeless tobacco: Never Vaping Use Vaping status: Never Used Substance and Sexual Activity Alcohol use: No Drug use: No Sexual activity: Not Currently Partners: Male Other Topics Concern Not on file Social History Narrative Not on file Social Drivers of Health Financial Resource Strain: Low Risk (04/28/2024) Overall Financial Resource Strain (CARDIA) Difficulty of Paying Living Expenses: Not hard at all Food Insecurity: No Food Insecurity (09/06/2024) Hunger Screening Food Insecurity - Worry: Never True Food Insecurity - Inability: Never True Transportation Needs: No Transportation Needs (03/31/2023) PRAPARE - Transportation Lack of Transportation (Medical): No Lack of Transportation (Non-Medical): No Physical Activity: Sufficiently Active (04/30/2022) Exercise Vital Sign Days of Exercise per Week: 7 days Minutes of Exercise per Session: 60 min Stress: Stress Concern Present (03/31/2023) [employer] [place] [employer] - Occupational Stress Questionnaire Feeling of Stress : Very much Social Connections: Socially Integrated (04/28/2024) Social Connection and Isolation Panel [NHANES] Frequency of Communication with Friends and Family: Three times a week Frequency of Social Gatherings with Friends and Family: Once a week Attends Sikh Services: More than 4 times per year Active Member of Clubs or Organizations: Yes Attends Club or Organization Meetings: More than 4 times per year Marital Status: Interpersonal Safety: Not At Risk (04/30/2022) Humiliation, Afraid, Rape, and Kick questionnaire Fear of Current or Ex-Partner: No Emotionally Abused: No Physically Abused: No Sexually Abused: No Housing Instability: Low Risk (04/28/2024) Housing Instability Housing Instability: No Review of Systems Constitutional: Negative for chills and fever. HENT: Negative. Eyes: Negative. Respiratory: Negative for cough and shortness of breath. Cardiovascular: Negative for chest pain. Gastrointestinal: Negative. Negative for abdominal pain and bowel incontinence. Endocrine: Negative. Genitourinary: Negative. Negative for bladder incontinence. Musculoskeletal: Positive for back pain. Skin: Negative. Allergic/Immunologic: Negative. Neurological: Positive for weakness (BLE). Negative for tingling and numbness. Hematological: Negative. Psychiatric/Behavioral: Negative. Vital Signs: BP 132/77 (BP Site: Right Arm) Pulse 64 Ht 175.3 cm (5' 9 ) Wt 102.1 kg (225 lb) SpO2 97% BMI 33.23 kg/m Physical Exam: GENERAL - Healthy patient that appears stated age. HEENT - Normocephalic / Atraumatic, Extraoccular movements intact, trachea midline, thyroid within normal limits. CV - pulse regular, Warm extremities with appropriate color of nailbeds. RESP - No obvious wheezing, No Shortness of Breath, No overexertion response to exam maneuvers. COORDINATION - remains intact. PSYCH - Alert and Oriented x4, Attentive and appropriate, constitutionally normal, displays normal mood and affect per situation, answered questions appropriately during examination, demonstrated appropriate attention during discussion, demonstrated appropriate cognitive reasoning and understanding of the medical condition by asking appropriate questions regarding the diagnosis and risks/benefits/alternatives of treatment modalities. No obvious deficits in memory, reasoning, or intellect. Lumbar: SKIN - No rashes or bruising in the area of the patient s pain. LYMPH NODES - demonstrate no obvious enlargement. EXTREMITIES - Lower extremities are warm, with minimal edema and palpable pulses. Tenderness to palpation noted in the lumbar spine and paraspinal musculature. Pain is elicited with flexion, extension, and lateral rotation of the lumbar spine. Range of motion is diminished with these motions due to pain. Facet palpation is noted to be somewhat tender and facet loading maneuvers are mildly positive, but not concordant with the patient s normal pain complaints. STRENGTH - noted to be 5 out of 5 all muscle groups bilateral lower extremities including muscles involving hip flexion and abduction, knee flexion and extension, as well as foot dorsiflexion and plantarflexion. No notable atrophy, fasciculations or spasm. SENSORY - No notable sensory deficits in the bilateral lower extremities to touch or pinprick in all dermatomal distributions. Gait is antalgic. Hyperalgesia is noted over the Right cluneal nerve distribution. Assessment/Treatment Plan: Loli was seen today for back pain. Diagnoses and all orders for this visit: Other specified mononeuropathies of right lower limb - Case request operating room: RADIOFREQUENCY ABLATION PERIPHERAL NERVE RIGHT CLUNEAL RFA Right Cluneal Radiofrequency Ablation - under fluoroscopy It is hopeful that the described procedure will provide symptomatic pain relief. It is felt to be medically necessary noting that the patient has tried and failed more conservative modalities of therapy and this is the next most appropriate step. The procedure was described in detail to the patient as well as the potential benefits of pain reduction alongside risks of the procedure and alternatives. Risks were described as including, but not limited to bleeding, infection, nerve damage, spinal cord injury, paralysis, stroke, dural puncture headache, and medication reaction. The patient expressed understanding regarding the risks and benefits and wishes to proceed. The patient has undergone diagnostic cluneal nerve injections. There was significant improvement in the patient s pain and functionality for the duration of the local anesthetic (approximately 2 hours) with return of the original symptoms after that time. For this reason, it is felt that the patient is a good candidate to undergo thermal Radio Frequency Lesioning of the cluneal nerves at 80 degrees celsius for 150 seconds. This will effectively denervate the branches of the cluneal nerves previously targeted with the diagnostic injection. It is noted that the procedure often requires 3-4 weeks to provide benefit, but the benefit usually lasts for approximately 1 year and can then be repeated if necessary. Patients undergoing this procedure often have mild post-procedural pain for 3-4 days which is generally relieved with application of heat and over the counter pain relievers. Follow up 4 weeks after procedure. DISCUSSION: Treatment options discussed with patient and all questions answered to patient's satisfaction. Discussed the rules and regulations surrounding prescription of opioids and compliance at length. Failure to follow the rules and regulation will result in tapering and discontinuation of medications if applicable. Chronic conditions not treated during this visit that affected my overall medical decision making: Comorbidity- Obesity The patient does have a comorbid condition of obesity. This will be taken into account in that obesity will contribute to certain pain conditions. It can contribute to pain from degenerative disc disease as well as osteoarthritis of the joints. Many neuropathic symptoms are also amplified due to axial spine loading. Special benefits will also need to be given to procedures. Many procedures are technically more difficult in the light of severe obesity. I will also consider the possibility of undiagnosed obstructive sleep apnea (which often accompanies obesity) when prescribing any narcotic medications. I will weigh the risks and benefits and fully discuss them with the patient for these reasons. The spine model was demonstrated and Xray was reviewed and used to explain the condition. OARRS: Reviewed. Follow up 4 weeks after procedure. Scribe Statement: Paty Marin RN, scribed for and in the presence of ERICH YU who performed the above service. Provider Statement: LAURITA Marin APRN-CNP, personally performed the services described in the documentation, as scribed by Paty Hathaway RN in my presence, and it is both accurate and complete. Paty Hathaway RN 09/06/24 1111 ERICH Yu 09/06/24 1453 [facility] [place] [facility] Instructions Paty Hathaway RN - 09/06/2024 9:45 AM EST Radiofrequency Ablation (RFA) Radiofrequency ablation (or RFA) is a procedure used to reduce pain. An electrical current produced by a radio wave is used to heat up a small area of nerve tissue, thereby decreasing pain signals from that specific area. Which Conditions Are Treated With Radiofrequency Ablation? RFA can be used to help patients with chronic (long-lasting) back and neck pain and pain related to the degeneration of joints from arthritis. How Long Does Pain Relief from Radiofrequency Ablation Last? The degree of pain relief varies, depending on the cause and location of the pain. Pain relief from RFA can last from six to 12 months and in some cases, relief can last for years. More than 70% of patients treated with RFA experience pain relief. Is Radiofrequency Ablation Safe? RFA has proven to be a safe and effective way to treat some forms of pain. It also is generally well-tolerated, with very few associated complications. There is a slight risk of infection and bleeding at the insertion site. Your doctor can advise you about your particular risk. Can I Resume My Normal Activities After Radiofrequency Ablation? You will have a few restrictions immediately following radiofrequency ablation: Do not drive or operate machinery for at least 24 hours after the procedure. You may resume your normal diet and prescribed medications (including blood thinners) when you get home. Do not engage in any strenuous activity for the first 24 hours after the procedure. You may remove any bandages in the evening before going to bed. You may experience the following effects after RFA: Leg numbness: If you have any leg numbness, walk only with assistance. This should only last a few hours and is due to the local anesthesia given during the procedure. Mild back discomfort: This may occur when the local anesthetic wears off and usually lasts two or three days. Apply heat to the area the day of the procedure and the day after the procedure. You may also use your usual pain medications and NSAID medications such as ibuprofen, naproxen, Aleve, Motrin, etc. if you are able. Expectations: Results will be gradual. It may take 3-4 weeks for full relief. If you feel severe pain at the injection site with swelling and redness, increased leg weakness, a fever of 101 or higher, headache (or worsening headache), changes in vision or urinary retention: Please call the office at , or have someone take you to the nearest emergency room. Tell the emergency room staff that you just had RFA. A doctor must evaluate you for bleeding and injection complications. If you lose control over bowel, bladder, or legs: Go to the nearest emergency room. If you are diabetic, the steroids used in this procedure can increase your blood sugar. If your blood sugar is 250mg/dL or higher, contact your primary care physician, or the doctor who manages your diabetes, to discuss how to get it back to normal. documented in this encounter [facility] 07-01-2024 History of Presen t illness Narrative Subjective Loli Flores is a 74 y.o. female status post excision of left buttock cyst on 06/22/2024. She has no concerns. She is glad the cyst is gone. She denies fever, chills, drainage, pain. Objective Vitals: 07/01/24 1042 BP: 141/61 Pulse: 68 Physical Exam Skin: General: Skin is warm and dry. Comments: Left buttock incision clean, dry and intact. Sutures removed in office today. Erythema due to surgeries, but no signs of infection. Final Pathologic Diagnosis Inclusion cyst - excision: - Benign epidermal inclusion cyst Assessment Loli Flores is a 74 y.o.female postop excision of left buttock cyst. Plan Final pathology discussed and given to patient. Follow-up as needed. Inclusion cyst [L72.0] ANGELA SUMMERS APRN-SILVINO [facility] General Surgery [place] This note was created with the assistance of a speech recognition program. While intending to generate a timely document that accurately reflects the content of the visit, no guarantee can be provided that every grammatical or spelling mistake has been or will be identified or corrected. Thank you for your understanding. AngelaERICH Alexander 07/01/24 1053 documented in this encounter [facility] 06-22-2024 History of Presen t illness Narrative Images from the original note were not included. [facility] GENER[facility] [address] [facility] [id number] CONSULT NOTE CHIEF COMPLAINT Chief Complaint Patient presents with Cyst EPIDERMOID CYST OF SKIN, REF BY SHELLEY SMITH CNP Loli Flores is a 74 y.o. female presents complaining of an inclusion cyst on the left buttocks for 1 year. She wishes to see about having it removed. It bothers her when she sits. MEDICATION Current Outpatient Medications: albuterol (PROVENTIL HFA;VENTOLIN HFA) 90 mcg/actuation inhaler, Inhale 2 puffs every 4 (four) hours as needed for wheezing., Disp: 18 g, Rfl: 1 albuterol (PROVENTIL,VENTOLIN) 2.5 mg /3 mL (0.083 %) nebulizer solution, Inhale 3 mL (2.5 mg total) by nebulization every 6 (six) hours as needed for wheezing., Disp: 75 mL, Rfl: 1 budesonide-formoteroL (SYMBICORT) 160-4.5 mcg/actuation inhaler, Inhale 2 puffs in the morning and 2 puffs before bedtime., Disp: 30.6 g, Rfl: 1 calcium carbonate-vitamin D3 (OSCAL 500 + D) 500 mg(1,250mg) -200 units per tablet, Take 1 tablet by mouth in the morning and 1 tablet in the evening. Take with meals., Disp: , Rfl: cycloSPORINE (RESTASIS) 0.05 % ophthalmic emulsion, 1 drop in the morning and 1 drop before bedtime., Disp: , Rfl: escitalopram (LEXAPRO) 5 mg tablet, Take 1 tablet (5 mg total) by mouth in the morning., Disp: 90 tablet, Rfl: 1 fluticasone propionate (FLONASE) 50 mcg/actuation nasal spray, Administer 2 sprays into each nostril in the morning., Disp: 47.4 mL, Rfl: 1 levothyroxine (SYNTHROID, LEVOTHROID) 25 MCG tablet, Take 1 tablet (25 mcg total) by mouth in the morning., Disp: 90 tablet, Rfl: 1 losartan (COZAAR) 50 mg tablet, Take 1 tablet (50 mg total) by mouth in the morning., Disp: 90 tablet, Rfl: 1 meclizine (ANTIVERT) 25 mg tablet, Take 1 tablet (25 mg total) by mouth 3 (three) times a day as needed for dizziness., Disp: 30 tablet, Rfl: 1 lvypdaft-wsyd-XE-calcium &mins (THERAGRAN-M) 9 mg iron-400 mcg tablet, Take 1 tablet by mouth in the morning., Disp: , Rfl: rosuvastatin (CRESTOR) 5 mg tablet, Take 1 tablet (5 mg total) by mouth nightly., Disp: 90 tablet, Rfl: 1 turmeric (CURCUMIN MISC), by miscellaneous route., Disp: , Rfl: ALLERGY Allergies Allergen Reactions Clindamycin Hives Clindamycin Hcl Hives Other Hives Synvisc-One [Hylan G-F 20] Swelling MEDICAL HISTORY Past Medical History: Diagnosis Date Anxiety Arthritis Asthma Cellulitis Chronic obstructive lung disease ([facility]) 03/25/2017 Chronic pain disorder Diabetes mellitus ([facility]) 12/2018 since weightloss Sx Essential hypertension 04/30/2022 Hyperlipidemia Patient states she no longer has Hypothyroid Joint pain Low back pain Prolonged emergence from general anesthesia Rash reaction to clindamycin Sciatica Visual impairment contacts SURGICAL HISTORY Past Surgical History: Procedure Laterality Date BARIATRIC SURGERY 01/11/2019 gastric bypass CHOLECYSTECTOMY COLONOSCOPY 01/10/2015 single polyp EXCISION LIPOMA Left 07/19/2019 Performed by Que Celis DO at [facility] HYSTERECTOMY INJECTION BLOCK NERVE RIGHT CLUNEAL Right 04/29/2024 Performed by Leonel Louie MD at [facility] INJECTION BLOCK NERVE RIGHT CLUNEAL Right 12/04/2023 Performed by Leonel Louie MD at [facility] INJECTION BLOCK NERVE KNEE Left Genicular Left 05/22/2023 Performed by Leonel Louie MD at [facility] INJECTION BLOCK SACROILIAC JOINT Right 07/25/2022 Performed by Leonel Louie MD at [facility] INJECTION BLOCK SACROILIAC JOINT Right 06/20/2022 Performed by Leonel Louie MD at [facility] RADIOFREQUENCY ABLATION GENICULAR Left 07/24/2023 Performed by Leonel Louie MD at [facility] SOCIAL HISTORY Social History Socioeconomic History Marital status: Spouse name: Not on file Number of children: Not on file Years of education: Not on file Highest education level: Not on file Occupational History Not on file Tobacco Use Smoking status: Never Smokeless tobacco: Never Vaping Use Vaping status: Never Used Substance and Sexual Activity Alcohol use: No Drug use: No Sexual activity: Defer Partners: Male Other Topics Concern Not on file Social History Narrative Not on file Social Drivers of Health Financial Resource Strain: Low Risk (04/28/2024) Overall Financial Resource Strain (CARDIA) Difficulty of Paying Living Expenses: Not hard at all Food Insecurity: No Food Insecurity (05/26/2024) Hunger Screening Food Insecurity - Worry: Never True Food Insecurity - Inability: Never True Transportation Needs: No Transportation Needs (03/31/2023) PRAPARE - Transportation Lack of Transportation (Medical): No Lack of Transportation (Non-Medical): No Physical Activity: Sufficiently Active (04/30/2022) Exercise Vital Sign Days of Exercise per Week: 7 days Minutes of Exercise per Session: 60 min Stress: Stress Concern Present (03/31/2023) [employer] - Occupational Stress Questionnaire Feeling of Stress : Very much Social Connections: Socially Integrated (04/28/2024) Social Connection and Isolation Panel [NHANES] Frequency of Communication with Friends and Family: Three times a week Frequency of Social Gatherings with Friends and Family: Once a week Attends Sikh Services: More than 4 times per year Active Member of Clubs or Organizations: Yes Attends Club or Organization Meetings: More than 4 times per year Marital Status: Interpersonal Safety: Not At Risk (04/30/2022) Humiliation, Afraid, Rape, and Kick questionnaire Fear of Current or Ex-Partner: No Emotionally Abused: No Physically Abused: No Sexually Abused: No Housing Instability: Low Risk (04/28/2024) Housing Instability Housing Instability: No FAMILY HISTORY Family History Problem Relation Age of Onset Cancer Mother Uterine cancer Mother Heart disease Father Pancreatic cancer Brother Bone cancer Nephew REVIEW OF SYSTEMS: Constitutional: Denies fevers, denies recent illnesses. Rest review of 10 systems negative except as above. PHYSICAL EXAM Constitutional: She is oriented to person, place, and time. Vital signs are normal. She appears well-developed and well-nourished. Neurological: She is alert and oriented to person, place, and time. Skin: Skin is warm, dry and intact. Protruding inclusion cyst 2.5 cm left buttocks. Psychiatric: She has a normal mood and affect. Her speech is normal and behavior is normal. Cognition and memory are normal. IMPRESSION Inclusion cyst left buttocks 2 cm ASSESSMENT & PLAN Procedure: The area was prepped and draped usual sterile fashion. 1% xylocaine with epinephrine 10 cc used anesthetize the area. It was excised in elliptical fashion and excision size was 2.5 cm. The wound was closed with 3-0 Vicryl suture in interrupted fashion subcutaneously and the skin was closed with 3-0 nylon suture in interrupted fashion. Wound care precautions given. Specimen went to pathology. Patient to follow up in 10 days to 2 weeks for suture removal. Patient warned that sutures may pop out because pressure from sitting. She understood Evaluation included: Preparing to see the patient (e.g., review of tests) Obtaining and/or reviewing separately obtained history Performing a medically appropriate examination and/or evaluation Counseling and educating the patient/family/caregiver Referring and communicating with other health managed care director No primary diagnosis found. Que Celis DO This note was created with the assistance of a speech recognition program. While intending to generate a timely document that accurately reflects the content of the visit, no guarantee can be provided that every grammatical or spelling mistake has been or will be identified or corrected. Thank you for your understanding. documented in this encounter [facility] 06-22-2024 History of Presen t illness Narrative Subjective Patient ID: Loli Flores is a 74 y.o. female who presents for Ear Problem (Fluid Rt ear) Pt reports one month ago she had RT OME. Tx with flonase and largely resolved, but still feels full. 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 Ambulatory Problems Diagnosis Date Noted Arthropathy 02/07/2023 Difficulty walking 02/07/2023 Osteoarthritis of knee 02/07/2023 Osteoarthritis of left knee 02/07/2023 Plantar wart, right foot 02/07/2023 Porokeratosis 02/07/2023 Past Medical History: Diagnosis Date Ear problems Past Surgical History: Procedure Laterality Date CHOLECYSTECTOMY 2014 CT ANGIOGRAM HEART CORONARY 09/27/2020 CT ANGIOGRAM TAVR 09/27/2020 GASTRIC BYPASS 2019 HYSTERECTOMY 1994 Allergies Allergen Reactions Clindamycin Hives Hylan G-F 20 Swelling Current Outpatient Medications on File Prior to Visit Medication Sig Dispense Refill acetaminophen (Tylenol) 325 MG tablet Take 325 mg by mouth every 4 (four) hours. albuterol (2.5 MG/3ML) 0.083% nebulizer solution Take 2.5 mg by nebulization every 6 (six) hours if needed for wheezing. albuterol HFA (ProAir HFA) 90 mcg/act inhaler Inhale 2 puffs every 4 (four) hours if needed. albuterol HFA 90 mcg/act inhaler Inhale 2 puffs every 4 (four) hours if needed for wheezing. budesonide-formoterol (Symbicort) 80-4.5 MCG/ACT inhaler Inhale 2 puffs in the morning and 2 puffs before bedtime. Calcium Carb-Cholecalciferol (CALCIUM CARBONATE-VITAMIN D3 PO) Take 1 tablet by mouth in the morning and 1 tablet before bedtime. cycloSPORINE (Restasis) 0.05 % ophthalmic emulsion Administer 1 drop into both eyes every 12 (twelve) hours. escitalopram (Lexapro) 5 MG tablet Take 5 mg by mouth in the morning. fluticasone (Flonase Allergy Relief) 50 MCG/ACT nasal spray Administer 2 sprays into each nostril in the morning. levothyroxine (Synthroid, Levoxyl) 25 MCG tablet Take 25 mcg by mouth 1 (one) time each day at the same time. losartan (Cozaar) 50 MG tablet Take 50 mg by mouth metroNIDAZOLE (Flagyl) 250 MG tablet Take by mouth multivitamin (Theragran) tablet Take 1 tablet by mouth in the morning. rosuvastatin (Crestor) 5 MG tablet Take 5 mg by mouth in the morning. No current facility-administered medications on file prior to visit. Objective Last Recorded Vitals Vitals: 06/22/24 0949 BP: 134/63 ENT Physical Exam Constitutional Appearance: patient appears well-developed, well-nourished and well-groomed, Communication/Voice: communication appropriate for developmental age; vocal quality normal; Ear Ear Canals: right ear canal normal; left ear canal normal; Tympanic Membranes: right tympanic membrane normal; Assessment/Plan Diagnoses and all orders for this visit: Chronic mastoiditis of right side Pt almost certainly still has a bit of fluid in the RT mastoid, a typical sequela of OME in an adult. This will eventually resolve without tx. documented in this encounter [facility] 05-26-2024 History of Presen t illness Narrative Please obtain patient's colonoscopy screening results from March from her bariatric surgeon in [facility], ERICH Miranda 05/26/24 1011 documented in this encounter [facility] 05-26-2024 History of Presen t illness Narrative [address] [place] [address] Patient: Loli Flores Date of : 1950 Encounter Date: 05/26/2024 History of Present Illness: The patient is a 74 y.o. female, an established patient, and is here for Chief Complaint Patient presents with fluid in ears controlled . HPI Patient is here for a controlled substance follow-up, re-check HTN, recheck of her diabetes, fullness in her right ear, and bump that she has on her left buttocks for the last several months which is getting bigger in hurts when she sits on the toilet seat. Patient has stopped her temazepam in March when she was on vacation she developed COVID and did not have a refill of her temazepam. She started sleeping well without it so she has not taken it since. Occasionally she will use a Tylenol PM if she has difficulty but states this works well. She reports no sleep walking or falling when she gets up in the middle of the night. She has been taking her blood pressures at home and she has been ranging 120s to 130s over 60s to 70s. Her log of home blood pressures was reviewed today. Patient states for the last several weeks she is developed fullness in her right ear and feels like she is talking through a tunnel with some frontal pressure occasionally. She went to the dough mixing machine operator and was told she may need an antibiotic for some fluid in her ear on the right. Patient has a diabetic eye exam appointment set up for June. Patient continues her Flagyl every night for gas and bloating from her bariatric surgeon through [facility]. She had a colonoscopy with him in March that was normal according to patient but no record is in system. Problem List Items Addressed This Visit Cardiovascular and Mediastinum Essential hypertension Digestive Obesity Endocrine Type 2 diabetes mellitus with microalbuminuria, without long-term current use of insulin ([facility]) - Primary Other Visit Diagnoses Adjustment insomnia Epidermoid cyst of skin Relevant Orders Ambulatory referral to General Surgery ([facility]) Influenza vaccination administered at current visit Relevant Orders Influenza, Trivalent, Adjuvanted (Completed) Dysfunction of right eustachian tube Past Medical, Family, and Social History Update: The following portions of the patient's history were reviewed and updated as appropriate: allergies, current medications, past family history, past medical history, past social history, past surgical history and problem list. Past Medical History: Diagnosis Date Anxiety Arthritis Asthma Cellulitis Chronic obstructive lung disease ([facility]) 03/25/2017 Chronic pain disorder Diabetes mellitus ([facility]) 12/2018 since weightloss Sx Essential hypertension 04/30/2022 Hyperlipidemia Patient states she no longer has Hypothyroid Joint pain Low back pain Prolonged emergence from general anesthesia Rash reaction to clindamycin Sciatica Visual impairment contacts Past Surgical History: Procedure Laterality Date BARIATRIC SURGERY 01/11/2019 gastric bypass CHOLECYSTECTOMY COLONOSCOPY 01/10/2015 single polyp EXCISION LIPOMA Left 07/19/2019 Performed by Que Celis DO at [facility] HYSTERECTOMY INJECTION BLOCK NERVE RIGHT CLUNEAL Right 04/29/2024 Performed by Leonel Louie MD at [facility] INJECTION BLOCK NERVE RIGHT CLUNEAL Right 12/04/2023 Performed by Leonel Louie MD at [facility] INJECTION BLOCK NERVE KNEE Left Genicular Left 05/22/2023 Performed by Leonel Louie MD at [facility] INJECTION BLOCK SACROILIAC JOINT Right 07/25/2022 Performed by Leonel Louie MD at [facility] INJECTION BLOCK SACROILIAC JOINT Right 06/20/2022 Performed by Leonel Louie MD at [facility] RADIOFREQUENCY ABLATION GENICULAR Left 07/24/2023 Performed by Leonel Louie MD at [facility] Current Outpatient Medications Medication Sig Dispense Refill albuterol (PROVENTIL HFA;VENTOLIN HFA) 90 mcg/actuation inhaler Inhale 2 puffs every 4 (four) hours as needed for wheezing. 18 g 1 albuterol (PROVENTIL,VENTOLIN) 2.5 mg /3 mL (0.083 %) nebulizer solution Inhale 3 mL (2.5 mg total) by nebulization every 6 (six) hours as needed for wheezing. 75 mL 1 budesonide-formoteroL (SYMBICORT) 160-4.5 mcg/actuation inhaler Inhale 2 puffs in the morning and 2 puffs before bedtime. 30.6 g 1 calcium carbonate-vitamin D3 (OSCAL 500 + D) 500 mg(1,250mg) -200 units per tablet Take 1 tablet by mouth in the morning and 1 tablet in the evening. Take with meals. cycloSPORINE (RESTASIS) 0.05 % ophthalmic emulsion 1 drop in the morning and 1 drop before bedtime. escitalopram (LEXAPRO) 5 mg tablet Take 1 tablet (5 mg total) by mouth in the morning. 90 tablet 1 fluticasone propionate (FLONASE) 50 mcg/actuation nasal spray Administer 2 sprays into each nostril in the morning. 47.4 mL 1 levothyroxine (SYNTHROID, LEVOTHROID) 25 MCG tablet Take 1 tablet (25 mcg total) by mouth in the morning. 90 tablet 1 losartan (COZAAR) 50 mg tablet Take 1 tablet (50 mg total) by mouth in the morning. 90 tablet 1 meclizine (ANTIVERT) 25 mg tablet Take 1 tablet (25 mg total) by mouth 3 (three) times a day as needed for dizziness. 30 tablet 1 czduvugc-cayq-JR-calcium &mins (THERAGRAN-M) 9 mg iron-400 mcg tablet Take 1 tablet by mouth in the morning. rosuvastatin (CRESTOR) 5 mg tablet Take 1 tablet (5 mg total) by mouth nightly. 90 tablet 1 turmeric (CURCUMIN MISC) by miscellaneous route. Immunization, In Clinic, Inject 0.5 mL into the appropriate muscle once for 1 dose. flu vac 65up (PF) 45 MCG(15 MCGX3)/0.5 mL Sign this order to satisfy the OSBOP Positive ID requirements for immunization orders. No current facility-administered medications for this visit. (All medications reviewed and updated by provider since last office visit or hospitalization) Allergies: Clindamycin, Clindamycin hcl, Other, and Synvisc-one [hylan g-f 20] Tobacco History: Social History Tobacco Use Smoking Status Never Smokeless Tobacco Never (If patient a smoker, smoking cessation counseling offered) Social History: Social History Substance and Sexual Activity Alcohol Use No Review of Systems: Review of Systems Constitutional: Negative. Negative for unexpected weight change. HENT: Positive for congestion, hearing loss (With fullness and feeling as though she is talking in a tunnel on her right) and sinus pressure (frontal). Eyes: Negative. Respiratory: Negative. Cardiovascular: Negative. Negative for leg swelling. Gastrointestinal: Positive for abdominal distention and constipation. Endocrine: Negative. Genitourinary: Negative. Musculoskeletal: Positive for arthralgias and myalgias. Skin: Skin lump to left buttocks Allergic/Immunologic: Negative. Neurological: Negative. Psychiatric/Behavioral: Positive for dysphoric mood (stable at this time on lexapro) and sleep disturbance (She is able to sleep well most nights without medication but sometimes takes tylenol PM). Physical Exam: BP 138/70 (BP Site: Right Arm, BP Postition: Sitting) Pulse 75 Temp 36.6 C (97.8 F) (Oral) Ht 175.3 cm (5' 9 ) Wt 101.1 kg (222 lb 12.8 oz) SpO2 96% BMI 32.90 kg/m Physical Exam Vitals reviewed. Constitutional: Appearance: Normal appearance. She is obese. HENT: Head: Normocephalic. Right Ear: Ear canal and external ear normal. A middle ear effusion is present. Left Ear: Tympanic membrane, ear canal and external ear normal. Nose: Nose normal. Mouth/Throat: Mouth: Mucous membranes are moist. Eyes: Conjunctiva/sclera: Conjunctivae normal. Neck: Vascular: No carotid bruit. Cardiovascular: Rate and Rhythm: Normal rate and regular rhythm. Pulses: Normal pulses. Heart sounds: Normal heart sounds. No murmur heard. Pulmonary: Effort: Pulmonary effort is normal. No respiratory distress. Breath sounds: Normal breath sounds. Abdominal: General: Abdomen is flat. Bowel sounds are normal. Tenderness: There is no abdominal tenderness. Comments: Obese Musculoskeletal: Cervical back: Neck supple. Right lower leg: No edema. Left lower leg: No edema. Lymphadenopathy: Cervical: No cervical adenopathy. Skin: General: Skin is warm and dry. Neurological: General: No focal deficit present. Mental Status: She is alert and oriented to person, place, and time. Psychiatric: Mood and Affect: Mood normal. Behavior: Behavior normal. Thought Content: Thought content normal. Judgment: Judgment normal. Assessment and Plan: Loli was seen today for fluid in ears and controlled. Diagnoses and all orders for this visit: Type 2 diabetes mellitus with microalbuminuria, without long-term current use of insulin ([facility]) Class 1 obesity due to excess calories with serious comorbidity and body mass index (BMI) of 33.0 to 33.9 in adult Essential hypertension Adjustment insomnia Epidermoid cyst of skin - Ambulatory referral to General Surgery ([facility]); Future Influenza vaccination administered at current visit - Influenza, Trivalent, Adjuvanted Dysfunction of right eustachian tube Follow-up: It is too early to check patient's A1c but last time was checked in February it was 6.2%. This is very well controlled. We will recheck it at her 3 month follow-up. We will send her to General surgery in [place] for cyst removal 2 buttocks. She has a routine skin exam with Dermatology every year but this is not until the spring. Risks of Tylenol PM with Benadryl were discussed with patient as this is on the BEERs list. Patient feels the benefit is outweighing the risk but she was asked to use the Tylenol PM very sparingly. Patient has lost 1 lb and continues to try to be very active and eat healthy, she feels better in regards to her gas and bloating with the Flagyl she takes from bariatric surgery nightly. Treatment for right Eustachian tube dysfunction was discussed and patient was told that antibiotics and steroids systemically rarely improve this disorder. Patient is already taking Flonase and has thinning of nasal mucosa so she was asked to see her normal ENT for consultation. Patient will make an appointment in [place]. The OARRS/MAPPS database was reviewed today and found to be appropriate. She was advised to get the RSV vaccine at her pharmacy if she wishes. No indication of medication diversion, or non compliance. Patient has an appointment to follow up in 3 months for her diabetes. ERICH CASTELLANOS APRN-CNP 05/26/24 1009 documented in this encounter [facility] 05-23-2024 History of Presen t illness Narrative History: Pt here for ear cleaning. Her right ear seems plugged, onset about a week ago Otoscopic Exam: Ear canal clear and TM intact AU Recommendations: Pt does not have excessive wax in her ears. Recommend pt contact PCP to determine why her right ear seems plugged. Pt already has appointment with PCP scheduled later this week. documented in this encounter [facility] 05-19-2024 History of Presen t illness Narrative [facility] [address] [place] [address] Patient: Loli Flores Sex: female : 1950 Age: 74 y.o. PCP: ERICH CASTELLANOS 05/19/2024 Loli Flores is here for a(n) post procedure follow up right cluneal nerve block with 95% relief that continues. Patient reports feeling much better and has no pain at the moment. Date of onset of pain: 4 years Pain scale before treatment: 5/10 Pre-op pain score: 5/10 Post-op pain score: 0/10 2 hour post-op pain score: 2/10 4 hour post-op pain score: 0/10 Percentage of relief after and duration: 95% relief that continuous Pain scale after treatment: 0/10 Chief Complaint Patient presents with Back Pain HPI: Right SI Joint Injection 06/20/2022 100% relief for several hours. 07/25/2022 Right SIJ with 100% relief 12/04/2023 Right Cluneal Nerve Block with 100% relief ongoing pre-proc pain 5/10 post procedure through today 0/10 Knee 07-08-22 in office Gel One injection into left knee with 90% relief 03/24/2023 Left knee Gel One injection with 75% relief 05/22/23 Lt Gen NB w/100% relief continued 07/24/2023 left Genicular NB with 90% relief continuing. Pre procedure pain 7/10; post procedure pain 1/10 04/29/24 right cluneal nerve block with 95% relief that continues Back Pain This is a chronic problem. The current episode started more than 1 year ago (4+ years). The problem occurs rarely. The problem has been gradually improving since onset. The pain is present in the gluteal, lumbar spine and sacro-iliac. The quality of the pain is described as shooting (occasionally sharp pain but not as often since injection). The pain is at a severity of 0/10 (occasional 4/10 shooting pain thta does not last since injection). The patient is experiencing no pain. Exacerbated by: walking, stairs. Stiffness is present: na. Pertinent negatives include no abdominal pain, bladder incontinence, bowel incontinence, chest pain, fever, leg pain, numbness, tingling or weakness (RLE and right hip). Risk factors include poor posture and obesity. She has tried chiropractic manipulation, home exercises, ice and heat (chiropractor, previous injections,HEP, walks, lido patch, gabapentin, biofreeze; (no NSAIDS allowed per gastric bypass)) for the symptoms. The treatment provided significant (12/04/2023 Right cluneal nerve block with 100% relief ongoing) relief. Knee Pain Incident location: 7+ years. There was no injury mechanism. The pain is present in the left knee. The quality of the pain is described as aching. The pain is at a severity of 0/10. The patient is experiencing no pain. The pain has been Improving since onset. Pertinent negatives include no inability to bear weight, loss of motion, loss of sensation, muscle weakness, numbness or tingling. She reports no foreign bodies present. The symptoms are aggravated by movement (ambulation). She has tried acetaminophen, ice, heat, elevation and rest (chiropractor, previous injections, HEP, walks, lido patch, gabapentin, biofreeze; (no NSAIDS allowed per gastric bypass)) for the symptoms. The treatment provided moderate relief. The effect of pain on patient's ADLS: Moderate Impairment. Past Medical History: Diagnosis Date Anxiety Arthritis Asthma Cellulitis Chronic obstructive lung disease ([facility]) 03/25/2017 Chronic pain disorder Diabetes mellitus ([facility]) 12/2018 since weightloss Sx Essential hypertension 04/30/2022 Hyperlipidemia Patient states she no longer has Hypothyroid Joint pain Low back pain Prolonged emergence from general anesthesia Rash reaction to clindamycin Sciatica Visual impairment contacts Past Surgical History: Procedure Laterality Date BARIATRIC SURGERY 01/11/2019 gastric bypass CHOLECYSTECTOMY COLONOSCOPY 01/10/2015 single polyp EXCISION LIPOMA Left 07/19/2019 Performed by Que Celis DO at [facility] HYSTERECTOMY INJECTION BLOCK NERVE RIGHT CLUNEAL Right 04/29/2024 Performed by Leonel Louie MD at [facility] INJECTION BLOCK NERVE RIGHT CLUNEAL Right 12/04/2023 Performed by Leonel Louie MD at [facility] INJECTION BLOCK NERVE KNEE Left Genicular Left 05/22/2023 Performed by Leonel Louie MD at [facility] INJECTION BLOCK SACROILIAC JOINT Right 07/25/2022 Performed by Leonel Louie MD at [facility] INJECTION BLOCK SACROILIAC JOINT Right 06/20/2022 Performed by Leonel oLuie MD at [facility] RADIOFREQUENCY ABLATION GENICULAR Left 07/24/2023 Performed by Leonel Louie MD at [facility] Allergies Allergen Reactions Clindamycin Hives Clindamycin Hcl Hives Other Hives Synvisc-One [Hylan G-F 20] Swelling Family History Problem Relation Age of Onset Cancer Mother Uterine cancer Mother Heart disease Father Pancreatic cancer Brother Bone cancer Nephew Social History Socioeconomic History Marital status: Spouse name: Not on file Number of children: Not on file Years of education: Not on file Highest education level: Not on file Occupational History Not on file Tobacco Use Smoking status: Never Smokeless tobacco: Never Vaping Use Vaping status: Never Used Substance and Sexual Activity Alcohol use: No Drug use: No Sexual activity: Defer Partners: Male Other Topics Concern Not on file Social History Narrative Not on file Social Determinants of Health Financial Resource Strain: Low Risk (04/28/2024) Overall Financial Resource Strain (CARDIA) Difficulty of Paying Living Expenses: Not hard at all Food Insecurity: No Food Insecurity (05/19/2024) Hunger Screening Food Insecurity - Worry: Never True Food Insecurity - Inability: Never True Transportation Needs: No Transportation Needs (03/31/2023) PRAPARE - Transportation Lack of Transportation (Medical): No Lack of Transportation (Non-Medical): No Physical Activity: Sufficiently Active (04/30/2022) Exercise Vital Sign Days of Exercise per Week: 7 days Minutes of Exercise per Session: 60 min Stress: Stress Concern Present (03/31/2023) [place] of Occupational Health - Occupational Stress Questionnaire Feeling of Stress : Very much Social Connections: Socially Integrated (04/28/2024) Social Connection and Isolation Panel [NHANES] Frequency of Communication with Friends and Family: Three times a week Frequency of Social Gatherings with Friends and Family: Once a week Attends Sikh Services: More than 4 times per year Active Member of Clubs or Organizations: Yes Attends Club or Organization Meetings: More than 4 times per year Marital Status: Interpersonal Safety: Not At Risk (04/30/2022) Humiliation, Afraid, Rape, and Kick questionnaire Fear of Current or Ex-Partner: No Emotionally Abused: No Physically Abused: No Sexually Abused: No Housing Instability: Low Risk (04/28/2024) Housing Instability Housing Instability: No Review of Systems Constitutional: Negative. Negative for chills, fatigue and fever. HENT: Positive for congestion. Negative for sore throat. Eyes: Negative. Respiratory: Negative. Negative for cough and shortness of breath. Cardiovascular: Negative. Negative for chest pain. Gastrointestinal: Negative. Negative for abdominal pain and bowel incontinence. Endocrine: Negative. Genitourinary: Negative. Negative for bladder incontinence. Musculoskeletal: Positive for back pain. Skin: Negative. Allergic/Immunologic: Negative. Neurological: Negative. Negative for tingling, weakness (RLE and right hip) and numbness. Hematological: Negative. Psychiatric/Behavioral: Negative. Vital Signs: BP 140/65 (BP Site: Left Arm, BP Postition: Sitting) Pulse 59 Resp 18 Ht 175.3 cm (5' 9 ) Wt 101.4 kg (223 lb 9.6 oz) SpO2 97% BMI 33.02 kg/m Physical Exam: GENERAL - Healthy patient that appears stated age. HEENT - Normocephalic / Atraumatic, Extraoccular movements intact, trachea midline, thyroid within normal limits. CV - pulse regular, Warm extremities with appropriate color of nailbeds. RESP - No obvious wheezing, No Shortness of Breath, No overexertion response to exam maneuvers. COORDINATION - remains intact. PSYCH - Alert and Oriented x4, Attentive and appropriate, constitutionally normal, displays normal mood and affect per situation, answered questions appropriately during examination, demonstrated appropriate attention during discussion, demonstrated appropriate cognitive reasoning and understanding of the medical condition by asking appropriate questions regarding the diagnosis and risks/benefits/alternatives of treatment modalities. No obvious deficits in memory, reasoning, or intellect. Lumbar: SKIN - No rashes or bruising in the area of the patient s pain. LYMPH NODES - demonstrate no obvious enlargement. EXTREMITIES - Lower extremities are warm, with minimal edema and palpable pulses. Tenderness to palpation noted in the lumbar spine and paraspinal musculature. Pain is elicited with flexion, extension, and lateral rotation of the lumbar spine. Range of motion is diminished with these motions due to pain. Facet palpation is noted to be somewhat tender and facet loading maneuvers are mildly positive, but not concordant with the patient s normal pain complaints. STRENGTH - noted to be 5 out of 5 all muscle groups bilateral lower extremities including muscles involving hip flexion and abduction, knee flexion and extension, as well as foot dorsiflexion and plantarflexion. No notable atrophy, fasciculations or spasm. SENSORY - No notable sensory deficits in the bilateral lower extremities to touch or pinprick in all dermatomal distributions. Straight Leg Raise is negative. Gait is normal. Assessment/Treatment Plan: Loli was seen today for back pain. Diagnoses and all orders for this visit: Lumbar spondylosis Monitor Follow up PRN The medications prescribed have been reviewed for medication interactions/contraindications and/or for upcoming procedures: continue current medication regimen without any changes. DISCUSSION: Treatment options discussed with patient and all questions answered to patient's satisfaction. Discussed the rules and regulations surrounding prescription of opioids and compliance at length. Failure to follow the rules and regulation will result in tapering and discontinuation of medications if applicable. Prescribed medication that requires intensive monitoring for toxicity We do not currently prescribe any controlled substance from this practice. Treatment plans discussed but not opted for at this time: Cluneal RFA. Pain is under adequate control. It does appear that the patient benefited from the previous injection and the benefit has continued through this visit. At this time, we will monitor the patient s symptoms from an interventional standpoint and consider another injection in the future if the patient s symptoms return or intensify severely. The patient was made aware that they should call if symptoms worsen or if their pain begins to have a negative impact on their quality of life and activities of daily living again. The spine model was demonstrated and MRI was reviewed and used to explain the condition. OARRS: Reviewed. Scribe Statement: Scribed for and in the presence of PATIENCE MUÑOZ by Karrie Lane CNA. Provider Statement: I, PATIENCE MUÑOZ, personally performed the services described in the documentation, as scribed by Karrie Lane CNA in my presence, and it is both accurate and complete. Karrie Lane CNA 05/19/24 1422 PATIENCE Muñoz 05/24/24 1046 documented in this encounter [facility] 05-13-2024 Miscellaneous Notes Pt would like a refill on the pended medication. Sent to the [facility] pharmacy as she has 2 listed. documented in this encounter [facility] 05-13-2024 Telephone encounter Note Pt would like a refill on the pended medication. Sent to the [facility] pharmacy as she has 2 listed. [facility] 04-28-2024 History of Presen t illness Narrative Subjective SUBJECTIVE: Patient ID: Loli Flores is a 74 y.o. female who presents for a Medicare Annual Wellness exam. HPI Medicare wellness by RN. The following portions of the patient's history were reviewed and updated as appropriate: allergies, current medications, past family history, past medical history, past social history, past surgical history and problem list. AWV FLOWSHEET : Lifestyle Assessment Do you smoke or use smokeless tobacco?: No If you smoke or use smokeless tobacco, are you ready to quit?: NA Are you exposed to secondhand smoke?: No On average, how many drinks of alcohol do you consume in a week?: None Do you exercise for 30 or more minutes on average at least 3 days a week?: Often Do you have any tooth, denture, or oral problems?: No Do you snore or has anyone told you that you snore?: No Do you try to eat a balanced diet?: Yes Do you experience leakage of urine, also known as urinary incontinence?: (!) Sometimes Do you have difficulty performing any of these activities? (check all that apply): None Do you have difficulty performing any of these activities? (check all that apply): None Fall Risk Fall Risk Assessment Completed?: Yes Have you fallen in the past year?: No Are you worried about falling?: No Do you feel unsteady when standing or walking?: No Risk Stratification: Low Risk Depression Screening Little interest or pleasure in doing things: Not at all Feeling down, depressed, or hopeless: Not at all Trouble falling or staying asleep, or sleeping too much: Not at all Feeling tired or having little energy: Not at all Poor appetite or overeating: Not at all Feeling bad about yourself - or that you are a failure or have let yourself or your family down: Not at all Trouble concentrating on things, such as reading the newspaper or watching television: Not at all Moving or speaking so slowly that other people could have noticed. Or the opposite - being so fidgety or restless that you have been moving around a lot more than usual: Not at all Thoughts that you would be better off , or of hurting yourself in some way: Not at all PEG Scale What number best describes your pain on average in the past week?: 0 - No pain What number best describes how, during the past week, pain has interfered with your enjoyment of life?: 5 Safety Assessment Do you have throw rugs on the floor?: No Do you feel safe at your home?: Yes Do you feel unsteady when walking?: No Are you having difficulty with driving?: No Do you have trouble seeing?: No What assistive device do you use? (check all that apply): None Hearing Assessment Do you strain or struggle to hear/understand conversations?: No Do you have trouble hearing the television or radio when others do not?: No Does your family ever voice concerns about your hearing?: No Do you wear hearing aid/s?: No Personal Health During the past 4 weeks, how would you rate your overall health?: Very Good Do you understand how to take all of your medications?: Yes How confident are you that you can control and manage most of your health problems?: Very confident In the past 12 months, how many times have you been hospitalized?: None End of Life Planning Do you have a living will?: Yes Do you have a durable power of rn pediatric icu?: Yes Cognitive Screening Do you have trouble remembering or recalling facts or events?: No Do family members or caregivers report that you have difficulty remembering things?: No Clock Drawing Test: 6CIT score was 0 today REVIEW OF SYSTEMS: Review of Systems Objective PHYSICAL EXAMINATION: Vitals: 04/28/24 1502 Weight: 101.9 kg (224 lb 9.6 oz) Height: 175.3 cm (5' 9 ) Physical Exam Assessment/Plan ASSESSMENT/PLAN Loli was seen today for maw. Diagnoses and all orders for this visit: Medicare annual wellness visit, subsequent Depression screening Medicare available services screening done by RN was reviewed today. Patient is up-to-date on health maintenance. Immunizations were reviewed and all recommended vaccines appropriate for age are up-to-date except for seasonal flu shot. Patient has an upcoming appointment in May with provider so will recommend this. ERICH Castellanos 05/02/24 0911 documented in this encounter [facility] 04-08-2024 History of Presen t illness Narrative The OARRS/MAPPS database was reviewed today and found to be appropriate. No indication of medication diversion, or non compliance. Pt had a refill 04/02/24 for 30 days of Restoril. Not due until 05/03/24 ERICH Castellanos 04/08/24 0936 documented in this encounter [facility] 03-22-2024 Miscellaneous Notes Loli called to inform that she needs to cancel her procedure scheduled for Thursday. [place] of [place], and her is hospitalized with COVID. She will call when she returns and is certain that she is not sick. documented in this encounter [facility] 03-22-2024 Telephone encounter Note Loli called to inform that she needs to cancel her procedure scheduled for Thursday. She is out of state, and her is hospitalized with COVID. She will call when she returns and is certain that she is not sick. [facility] 03-14-2024 Miscellaneous Notes Patient lost her losartan, [facility] Patient has lost medication and is going on vacation tomorrow documented in this encounter [facility] 03-14-2024 Telephone encounter Note Patient lost her losartan, please send to drug [facility] 03-14-2024 Telephone encounter Note Patient has lost medication and is going on vacation tomorrow [facility] 03-01-2024 History of Presen t illness Narrative [facility] [address] [place] [address] Patient: Loli Flores Sex: female : 1950 Age: 73 y.o. PCP: SHELLEY SMITH APRN-SILVINO 03/01/2024 Loli Flores is here for a(n) 2 month follow up. She reports her right SI joint pain has returned. Chief Complaint Patient presents with Back Pain HPI: Right SI Joint Injection 06/20/2022 100% relief for several hours. 07/25/2022 Right SIJ with 100% relief 12/04/2023 Right Cluneal Nerve Block with 100% relief ongoing pre-proc pain 5/10 post procedure through today 0/ Knee 07-08-22 in office Gel One injection into left knee with 90% relief 03/24/2023 Left knee Gel One injection with 75% relief 05/22/23 Lt Gen NB w/100% relief continued 07/24/2023 left Genicular NB with 90% relief continuing. Pre procedure pain 7/10; post procedure pain 1/10 Back Pain This is a chronic problem. The current episode started more than 1 year ago (4+ years). The problem occurs constantly. The problem has been gradually worsening since onset. The pain is present in the gluteal, lumbar spine and sacro-iliac (right side). The quality of the pain is described as shooting and stabbing (sharp). The pain radiates to the right thigh (Rt hip). The pain is at a severity of 10/10 (5/10 during day and 10/10 every night). The pain is severe. The pain is Worse during the night. Exacerbated by: walking, stairs. Stiffness is present All day. Associated symptoms include leg pain (Rt thigh posterior). Pertinent negatives include no abdominal pain, bladder incontinence, bowel incontinence, chest pain, fever, numbness, tingling or weakness (RLE and right hip). Risk factors include poor posture and obesity. She has tried chiropractic manipulation, home exercises, ice and heat (chiropractor, previous injections,HEP, walks, lido patch, gabapentin, biofreeze; (no NSAIDS allowed per gastric bypass)) for the symptoms. The treatment provided significant (12/04/2023 Right cluneal nerve block with 100% relief ongoing) relief. Knee Pain Incident location: 7+ years. There was no injury mechanism. The pain is present in the left knee. The quality of the pain is described as aching. The pain is at a severity of 0/10. The patient is experiencing no pain. The pain has been Improving since onset. Pertinent negatives include no inability to bear weight, loss of motion, loss of sensation, muscle weakness, numbness or tingling. She reports no foreign bodies present. The symptoms are aggravated by movement (ambulation). She has tried acetaminophen, ice, heat, elevation and rest (chiropractor, previous injections, HEP, walks, lido patch, gabapentin, biofreeze; (no NSAIDS allowed per gastric bypass)) for the symptoms. The treatment provided moderate relief. The effect of pain on patient's ADLS: Moderate Impairment. Past Medical History: Diagnosis Date Anxiety Arthritis Asthma Cellulitis Chronic obstructive lung disease ([facility]) 03/25/2017 Chronic pain disorder Diabetes mellitus ([facility]) 12/2018 since weightloss Sx Essential hypertension 04/30/2022 Hyperlipidemia Patient states she no longer has Hypothyroid Joint pain Low back pain Prolonged emergence from general anesthesia Rash reaction to clindamycin Sciatica Visual impairment contacts Past Surgical History: Procedure Laterality Date BARIATRIC SURGERY 01/11/2019 gastric bypass CHOLECYSTECTOMY COLONOSCOPY 01/10/2015 single polyp EXCISION LIPOMA Left 07/19/2019 Performed by Que Celis DO at [facility] HYSTERECTOMY INJECTION BLOCK NERVE RIGHT CLUNEAL Right 12/04/2023 Performed by Leonel Louie MD at [facility] PA[facility] INJECTION BLOCK NERVE KNEE Left Genicular Left 05/22/2023 Performed by Leonel Louie MD at [facility] INJECTION BLOCK SACROILIAC JOINT Right 07/25/2022 Performed by Leonel Louie MD at [facility] INJECTION BLOCK SACROILIAC JOINT Right 06/20/2022 Performed by Leonel Louie MD at [facility] RADIOFREQUENCY ABLATION GENICULAR Left 07/24/2023 Performed by Leonel Louie MD at [facility] Allergies Allergen Reactions Clindamycin Hives Clindamycin Hcl Hives Other Hives Synvisc-One [Hylan G-F 20] Swelling Family History Problem Relation Age of Onset Cancer Mother Uterine cancer Mother Heart disease Father Pancreatic cancer Brother Bone cancer Nephew Social History Socioeconomic History Marital status: Spouse name: Not on file Number of children: Not on file Years of education: Not on file Highest education level: Not on file Occupational History Not on file Tobacco Use Smoking status: Never Smokeless tobacco: Never Vaping Use Vaping status: Never Used Substance and Sexual Activity Alcohol use: No Drug use: No Sexual activity: Defer Partners: Male Other Topics Concern Not on file Social History Narrative Not on file Social Determinants of Health Financial Resource Strain: Low Risk (09/28/2020) Overall Financial Resource Strain (CARDIA) Difficulty of Paying Living Expenses: Not hard at all Food Insecurity: No Food Insecurity (03/01/2024) Hunger Screening Food Insecurity - Worry: Never True Food Insecurity - Inability: Never True Transportation Needs: No Transportation Needs (03/31/2023) PRAPARE - Transportation Lack of Transportation (Medical): No Lack of Transportation (Non-Medical): No Physical Activity: Sufficiently Active (04/30/2022) Exercise Vital Sign Days of Exercise per Week: 7 days Minutes of Exercise per Session: 60 min Stress: Stress Concern Present (03/31/2023) [place] [employer] - Occupational Stress Questionnaire Feeling of Stress : Very much Social Connections: Socially Integrated (09/28/2020) Social Connection and Isolation Panel [NHANES] Frequency of Communication with Friends and Family: Twice a week Frequency of Social Gatherings with Friends and Family: Once a week Attends Sikh Services: More than 4 times per year Active Member of Clubs or Organizations: Yes Attends Club or Organization Meetings: More than 4 times per year Marital Status: Interpersonal Safety: Not At Risk (04/30/2022) Humiliation, Afraid, Rape, and Kick questionnaire Fear of Current or Ex-Partner: No Emotionally Abused: No Physically Abused: No Sexually Abused: No Housing Instability: Not on file Review of Systems Constitutional: Negative. Negative for fever. HENT: Negative. Respiratory: Negative. Cardiovascular: Negative. Negative for chest pain. Gastrointestinal: Negative. Negative for abdominal pain and bowel incontinence. Genitourinary: Negative. Negative for bladder incontinence. Musculoskeletal: Positive for back pain. Skin: Negative. Neurological: Negative for tingling, weakness (RLE and right hip) and numbness. Vital Signs: BP 138/67 (BP Site: Left Arm, BP Postition: Sitting) Pulse 72 Resp 18 Ht 175.3 cm (5' 9 ) Wt 102.5 kg (226 lb) SpO2 98% BMI 33.37 kg/m Physical Exam: GENERAL - Healthy patient that appears stated age. HEENT - Normocephalic / Atraumatic, Extraoccular movements intact, trachea midline, thyroid within normal limits. CV - pulse regular, Warm extremities with appropriate color of nailbeds. RESP - No obvious wheezing, No Shortness of Breath, No overexertion response to exam maneuvers. COORDINATION - remains intact. PSYCH - Alert and Oriented x4, Attentive and appropriate, constitutionally normal, displays normal mood and affect per situation, answered questions appropriately during examination, demonstrated appropriate attention during discussion, demonstrated appropriate cognitive reasoning and understanding of the medical condition by asking appropriate questions regarding the diagnosis and risks/benefits/alternatives of treatment modalities. No obvious deficits in memory, reasoning, or intellect. Lumbar: SKIN - No rashes or bruising in the area of the patient s pain. LYMPH NODES - demonstrate no obvious enlargement. EXTREMITIES - Lower extremities are warm, with minimal edema and palpable pulses. Tenderness to palpation noted in the lumbar spine and paraspinal musculature. Pain is elicited with flexion, extension, and lateral rotation of the lumbar spine. Range of motion is diminished with these motions due to pain. Facet palpation is noted to be painful and facet loading maneuvers elicit pain that is concordant with the patient s normal pain complaints. Some muscle spasm is noted in the overlying musculature. STRENGTH - noted to be 5 out of 5 all muscle groups bilateral lower extremities including muscles involving hip flexion and abduction, knee flexion and extension, as well as foot dorsiflexion and plantarflexion. No notable atrophy, fasciculations or spasm. SENSORY - No notable sensory deficits in the bilateral lower extremities to touch or pinprick in all dermatomal distributions. Straight Leg Raise is negative bilaterally. Tenderness to palpation is noted over the Right SacroIliac Joint: Fabere sign (Sly's Test) is significantly positive, as is compression and distraction of the sacroiliac joints, which is consistent with some of the patient's normal pain. Hyperalgesia noted over the right cluneal nerve distributions. Gait is normal. Assessment/Treatment Plan: Loli was seen today for back pain. Diagnoses and all orders for this visit: Other specified mononeuropathies of right lower limb - Case request operating room: INJECTION BLOCK NERVE RIGHT CLUNEAL NERVE BLOCK Right Cluneal Nerve Block - under fluoroscopy It is hopeful that the described procedure will provide symptomatic pain relief. It is felt to be medically necessary noting that the patient has tried and failed more conservative modalities of therapy and this is the next most appropriate step. The procedure was described in detail to the patient as well as the potential benefits of pain reduction alongside risks of the procedure and alternatives. Risks were described as including, but not limited to bleeding, infection, nerve damage, spinal cord injury, paralysis, stroke, dural puncture headache, and medication reaction. The patient expressed understanding regarding the risks and benefits and wishes to proceed. Cluneal nerve injections should provide information to confirm that the cluneal nerves are the patient s most significant pain generator. If this provides significant but only temporary pain relief, the patient may in the future be a candidate for radiofrequency denervation of the cluneal nerves to provide pain relief for approximately 1 year. Follow up 2 weeks after procedure The medications I have prescribed have been reviewed for medication interactions/contraindications and/or for upcoming procedures: continue current medication regimen without any changes. DISCUSSION: Treatment options discussed with patient and all questions answered to patient's satisfaction. Discussed the rules and regulations surrounding prescription of opioids and compliance at length. Failure to follow the rules and regulation will result in tapering and discontinuation of medications if applicable. Prescribed medication that requires intensive monitoring for toxicity We do not currently prescribe any controlled substance from this practice. Treatment plans discussed but not opted for at this time: Cluneal RFA. Patient would like to proceed with the current outlined treatment plan before moving forward with any other options. It is noted that the patient did have good response from the previously performed procedure. It is felt that the patient would benefit from an additional procedure of the same nature in that the same symptoms have returned. It is hopeful that this additional injection will provide additional benefit and duration when combined with the previous injection. The spine model was demonstrated and MRI was reviewed and used to explain the condition. Chronic conditions not treated during this visit that affected my overall medical decision making: Comorbidity- Obesity The patient does have a comorbid condition of obesity. This will be taken into account in that obesity will contribute to certain pain conditions. It can contribute to pain from degenerative disc disease as well as osteoarthritis of the joints. Many neuropathic symptoms are also amplified due to axial spine loading. Special benefits will also need to be given to procedures. Many procedures are technically more difficult in the light of severe obesity. I will also consider the possibility of undiagnosed obstructive sleep apnea (which often accompanies obesity) when prescribing any narcotic medications. I will weigh the risks and benefits and fully discuss them with the patient for these reasons. Comorbidity- Diabetes The patient has a history of diabetes mellitus currently managed with medications. This will need to be considered prior to any procedure that would require the injection of steroid in that the patient may experience a transient increase in glucose as a result. Additional consideration will need to be given to timing the procedure early in the morning in that the patient will need to be fasting prior to the administration of anesthesia. Every effort will be made to perform the procedure as a 1st case due to this condition. And the patient will be instructed to hold their diabetic medications on that morning. If necessary, a blood glucose test can also be performed that morning. The risks/ benefits/ and alternatives will be weighed and explained to the patient prior to any procedure. OARRS: Reviewed. Scribe Statement: Scribed for and in the presence of ERICH YU by Karrie Lane CNA. Provider Statement: I, ERICH YU, personally performed the services described in the documentation, as scribed by Karrie Lane CNA in my presence, and it is both accurate and complete. Karrie Lane CNA 03/01/24 1341 ERICH Yu 03/01/24 1524 documented in this encounter [facility] 03-01-[address] CNA - 03/01/2024 1:00 PM EDT Epidural Steroid Injection (TIGRE) / Nerve Root Injection / Nerve Block These procedure(s) involve the injection of a steroid and anesthetic into the epidural space or the nerve sheath that is both diagnostic and potentially therapeutic for alleviating discomfort of the legs and arms secondary to compression of the respective nerves due to bulging discs, bone spurs and other potential causes. Steroids are potent anti-inflammatory drugs that act to decrease the swollen and inflamed nerves thus relieving your clinical symptoms. How Long Will This Procedure Last? The extent and duration of pain relief may depend on the amount of inflammation and how many areas are involved. Other coexisting factors may be responsible for your pain. You and your physician will discuss expected results of procedure(s). After Your Injection You may experience soreness and tenderness at the area of treatment. This pain may not occur until later today after the numbing medicine wears off. The steroid can take 3-5 days to work and provide noticeable improvement. Activity You may feel temporary numbness, weakness or tingling: In the neck, arm, or fingertips (if your procedure was done in your neck) In the legs (if your procedure was done in your lower back) These symptoms are normal, and should subside within 3-4 hours. In that time, be careful to avoid falls. As a safety precaution, you must have a canal driver after a lumbar nerve root injection, even if you do not receive sedation. Resume activity as tolerated when function has returned. Medications Resume your routine medications after your procedure. You may resume blood thinners per your regular schedule after the procedure. If you received sedation: If you received sedation for your procedure, you may feel sleepy or not yourself for several hours today. For the next 24 hours avoid activities that requires alertness or coordination. This includes: Driving or operating heavy machinery Using power tools Consuming alcohol Do not make important or complex decisions or sign legal documents in the next 24 hours. Other Instructions: If you feel severe pain at the injection site with swelling and redness, increased leg weakness, a fever of 101 or higher, headache (or worsening headache), changes in vision or urinary retention: Please call the office at , or have someone take you to the nearest emergency room. Tell the emergency room staff that you recently had a spine injection. A doctor must evaluate you for bleeding and injection complications. If you lose control over bowel, bladder, or legs: Go to the nearest emergency room. If you are diabetic, the steroids used in this procedure can increase your blood sugar. If your blood sugar is 250mg/dL or higher, contact your primary care physician, or the doctor who manages your diabetes, to discuss how to get it back to normal. documented in this encounter [facility] 02-26-2024 History of Presen t illness Narrative [address] [place] [address] Patient: Loli Flores Date of : 1950 Encounter Date: 02/26/2024 History of Present Illness: The patient is a 73 y.o. female, an established patient, and is here for Chief Complaint Patient presents with controlled Arms beat up . HPI Patient is here for controlled substance refills on her Restoril which she takes for insomnia. This was started by her previous nurse practitioner Griselda who has now retired. Patient denies any prior history of sleep apnea. She states 1 day she just could not go to sleep and she would be up most of the night tossing and turning. Once her previous nurse practitioner had started the Restoril she is getting 7-8 hours of sleep consistently and is improving her quality of life. She denies any morning fatigue or night walking or confusion. She takes the medication half an hour before bed. She does not use any other sleep agents and does not drive after taking. Problem List Items Addressed This Visit Cardiovascular and Mediastinum Essential hypertension Endocrine Type 2 diabetes mellitus with microalbuminuria, without long-term current use of insulin ([facility]) Relevant Orders POCT Hemoglobin A1c Other Visit Diagnoses Adjustment insomnia - Primary Relevant Orders Drug Screen, Urine Past Medical, Family, and Social History Update: The following portions of the patient's history were reviewed and updated as appropriate: allergies, current medications, past family history, past medical history, past social history, past surgical history and problem list. Past Medical History: Diagnosis Date Anxiety Arthritis Asthma Cellulitis Chronic obstructive lung disease ([facility]) 03/25/2017 Chronic pain disorder Diabetes mellitus ([facility]) 12/2018 since weightloss Sx Essential hypertension 04/30/2022 Hyperlipidemia Patient states she no longer has Hypothyroid Joint pain Low back pain Prolonged emergence from general anesthesia Rash reaction to clindamycin Sciatica Visual impairment contacts Past Surgical History: Procedure Laterality Date BARIATRIC SURGERY 01/11/2019 gastric bypass CHOLECYSTECTOMY COLONOSCOPY 01/10/2015 single polyp EXCISION LIPOMA Left 07/19/2019 Performed by Que Celis DO at [facility] HYSTERECTOMY INJECTION BLOCK NERVE RIGHT CLUNEAL Right 12/04/2023 Performed by Leonel Louie MD at [facility] INJECTION BLOCK NERVE KNEE Left Genicular Left 05/22/2023 Performed by Leonel Louie MD at [facility] INJECTION BLOCK SACROILIAC JOINT Right 07/25/2022 Performed by Leonel Louie MD at [facility] INJECTION BLOCK SACROILIAC JOINT Right 06/20/2022 Performed by Leonel Louie MD at [facility] RADIOFREQUENCY ABLATION GENICULAR Left 07/24/2023 Performed by Leonel Louie MD at [facility] Current Outpatient Medications Medication Sig Dispense Refill albuterol (PROVENTIL HFA;VENTOLIN HFA) 90 mcg/actuation inhaler Inhale 2 puffs every 4 (four) hours as needed for wheezing. 18 g 1 albuterol (PROVENTIL,VENTOLIN) 2.5 mg /3 mL (0.083 %) nebulizer solution Inhale 3 mL (2.5 mg total) by nebulization every 6 (six) hours as needed for wheezing. 75 mL 1 budesonide-formoteroL (SYMBICORT) 160-4.5 mcg/actuation inhaler Inhale 2 puffs in the morning and 2 puffs before bedtime. 30.6 g 1 calcium carbonate-vitamin D3 (OSCAL 500 + D) 500 mg(1,250mg) -200 units per tablet Take 1 tablet by mouth in the morning and 1 tablet in the evening. Take with meals. cycloSPORINE (RESTASIS) 0.05 % ophthalmic emulsion 1 drop in the morning and 1 drop before bedtime. escitalopram (LEXAPRO) 5 mg tablet Take 1 tablet (5 mg total) by mouth in the morning. 90 tablet 1 fluticasone propionate (FLONASE) 50 mcg/actuation nasal spray Administer 2 sprays into each nostril in the morning. 47.4 mL 1 levothyroxine (SYNTHROID, LEVOTHROID) 25 MCG tablet Take 1 tablet (25 mcg total) by mouth in the morning. 90 tablet 1 meclizine (ANTIVERT) 25 mg tablet Take 1 tablet (25 mg total) by mouth 3 (three) times a day as needed for dizziness. 30 tablet 1 miemvftm-ygmc-TX-calcium &mins (THERAGRAN-M) 9 mg iron-400 mcg tablet Take 1 tablet by mouth in the morning. rosuvastatin (CRESTOR) 5 mg tablet Take 1 tablet (5 mg total) by mouth nightly. 90 tablet 1 temazepam (RestoriL) 7.5 mg capsule Take 1 capsule (7.5 mg total) by mouth nightly as needed for sleep. 30 capsule 0 acetaminophen (TYLENOL) 325 mg tablet Take 2 tablets (650 mg total) by mouth every 6 (six) hours as needed for pain, headaches or fever. (Patient not taking: Reported on 02/26/2024) 30 tablet 0 Bifidobacterium infantis (ALIGN) 4 mg capsule Take 1 capsule (4 mg total) by mouth in the morning. (Patient not taking: Reported on 02/26/2024) 100 capsule 3 losartan (COZAAR) 50 mg tablet Take 1 tablet (50 mg total) by mouth in the morning. 90 tablet 1 No current facility-administered medications for this visit. (All medications reviewed and updated by provider since last office visit or hospitalization) Allergies: Clindamycin, Clindamycin hcl, Other, and Synvisc-one [hylan g-f 20] Tobacco History: Social History Tobacco Use Smoking Status Never Smokeless Tobacco Never (If patient a smoker, smoking cessation counseling offered) Social History: Social History Substance and Sexual Activity Alcohol Use No Review of Systems: Review of Systems Constitutional: Negative. Negative for unexpected weight change. HENT: Negative. Eyes: Negative. Respiratory: Negative. Cardiovascular: Positive for leg swelling (minimal). Gastrointestinal: Positive for abdominal distention and constipation. Endocrine: Negative. Genitourinary: Negative. Musculoskeletal: Positive for arthralgias and myalgias. Skin: Negative. Allergic/Immunologic: Negative. Neurological: Negative. Psychiatric/Behavioral: Positive for dysphoric mood (stable at this time on lexapro) and sleep disturbance (doing well currently on restoril). Physical Exam: BP 150/62 (BP Site: Left Arm, BP Postition: Sitting) Pulse 68 Temp 36.6 C (97.8 F) (Oral) Resp 20 Ht 175.3 cm (5' 9 ) Wt 102.9 kg (226 lb 12.8 oz) SpO2 97% BMI 33.49 kg/m Physical Exam Vitals and nursing note reviewed. Constitutional: Appearance: Normal appearance. She is obese. HENT: Head: Normocephalic. Eyes: Conjunctiva/sclera: Conjunctivae normal. Neck: Vascular: No carotid bruit. Cardiovascular: Rate and Rhythm: Normal rate and regular rhythm. Pulses: Normal pulses. Heart sounds: Normal heart sounds. No murmur heard. Pulmonary: Effort: Pulmonary effort is normal. No respiratory distress. Breath sounds: Normal breath sounds. Abdominal: General: Abdomen is flat. Bowel sounds are normal. There is distension (bloating). Tenderness: There is abdominal tenderness (throughout). Comments: Obese Musculoskeletal: Cervical back: Neck supple. Right lower leg: Edema (non-pitting feet) present. Left lower leg: Edema (non-pitting feet) present. Feet: Right foot: Toenail Condition: Right toenails are abnormally thick. Left foot: Toenail Condition: Left toenails are abnormally thick. Lymphadenopathy: Cervical: No cervical adenopathy. Skin: General: Skin is warm and dry. Neurological: General: No focal deficit present. Mental Status: She is alert and oriented to person, place, and time. Psychiatric: Mood and Affect: Mood normal. Behavior: Behavior normal. Thought Content: Thought content normal. Judgment: Judgment normal. Assessment and Plan: Loli was seen today for controlled. Diagnoses and all orders for this visit: Adjustment insomnia - Drug Screen, Urine; Future Type 2 diabetes mellitus with microalbuminuria, without long-term current use of insulin ([facility]) - POCT Hemoglobin A1c Essential hypertension Other orders - losartan (COZAAR) 50 mg tablet; Take 1 tablet (50 mg total) by mouth in the morning. Follow-up: The Restoril is a sedative but it is helping to increase patient's quality of life and she is having no adverse side effects on it. Controlled substance agreement and urine drug screen completed today. The OARRS/MAPPS database was reviewed today and found to be appropriate. No indication of medication diversion, or non compliance. Patient's A1c is very well controlled, no changes. Patient's blood pressure has been above goal for the last few visits. Will increase her losartan to 50 mg daily. Patient is in agreement with this and will let provider know if she experiences any adverse side effects with the increase in the medication. Goal blood pressure is less than 130/80. Patient has an appointment in April to follow-up for Medicare wellness. ERICH CASTELLANOS APRN-CNP 03/02/24 183 documented in this encounter [facility] 02-16-2024 History of Presen t illness Narrative The OARRS/MAPPS database was reviewed today and found to be appropriate. No indication of medication diversion, or non compliance. ERICH Castellanos 02/16/242002 documented in this encounter [facility] 02-15-2024 Miscellaneous Notes Pt wanted to know if you could send a couple week supply to drug [facility] in [facility] also She is due for 3 mo appt February 22 as this is a controlled substance, I need to see her every 3 mo. This is separate from the Medicare Well. Will send temporary supply to [facility] [place] and 30 day to [place] documented in this encounter [facility] 02-15-2024 Telephone encounter Note Pt wanted to know if [facility] could [facility] also [facility] 02-15-2024 Telephone encounter Note She is due for 3 mo appt February 22 as this is a controlled substance, I need to see her every 3 mo. This is separate from the Medicare Well. Will send temporary supply to [facility] [place] and 30 day to [place] [facility] 12-23-2023 History of Presen t illness Narrative [facility] [address] [place] [address] Patient: Loli Flores Sex: female : 1950 Age: 73 y.o. PCP: MARIO BENÍTEZ 12/23/2023 Loli Flores is here for a(n) post procedure follow up 12/04/2023 Right cluneal nerve block with 100% relief ongoing. Date of onset of pain: prior to 2019 , pain has lasted greater than 3 months. Pain scale before treatment: 5/10 Pre-op pain score: 5/10 Post-op pain score: 5/10 2 hour post-op pain score: 1/10 4 hour post-op pain score: 0/10 Percentage of relief after and duration: 100% relief ongoing Pain scale after treatment: 0/10 Chief Complaint Patient presents with Back Pain HPI: Right SI Joint Injection 06/20/2022 100% relief for several hours. 07/25/2022 Right SIJ with 100% relief 12/04/2023 Right Cluneal Nerve Block with 100% relief ongoing pre-proc pain 5/10 post procedure through today 0/10 Knee 07-08-22 in office Gel One injection into left knee with 90% relief 03/24/2023 Left knee Gel One injection with 75% relief 05/22/23 Lt Gen NB w/100% relief continued 07/24/2023 left Genicular NB with 90% relief continuing. Pre procedure pain 7/10; post procedure pain 1/10 Back Pain This is a chronic problem. The current episode started more than 1 year ago (4+ years). The problem occurs constantly. The problem has been resolved since onset. The pain is present in the gluteal, lumbar spine and sacro-iliac (right side). The quality of the pain is described as shooting and stabbing (sharp). The pain radiates to the right thigh (Rt hip). The pain is at a severity of 0/10. The patient is experiencing no pain. The pain is Worse during the night (has been sleeping well since nerve block). Exacerbated by: walking, stairs. Stiffness is present All day. Associated symptoms include leg pain (Rt thigh). Pertinent negatives include no abdominal pain, bladder incontinence, bowel incontinence, chest pain, fever, numbness (Rt buttock), tingling or weakness (Tyler knees). Risk factors include poor posture and obesity. She has tried chiropractic manipulation, home exercises, ice and heat (chiropractor, previous injections,HEP, walks, lido patch, gabapentin, biofreeze; (no NSAIDS allowed per gastric bypass)) for the symptoms. The treatment provided significant (12/04/2023 Right cluneal nerve block with 100% relief ongoing) relief. Knee Pain Incident location: 7+ years. There was no injury mechanism. The pain is present in the left knee. The quality of the pain is described as aching. The pain is at a severity of 0/10. The patient is experiencing no pain. The pain has been Improving since onset. Pertinent negatives include no inability to bear weight, loss of motion, loss of sensation, muscle weakness, numbness (Rt buttock) or tingling. She reports no foreign bodies present. The symptoms are aggravated by movement (ambulation). She has tried acetaminophen, ice, heat, elevation and rest (chiropractor, previous injections, HEP, walks, lido patch, gabapentin, biofreeze; (no NSAIDS allowed per gastric bypass)) for the symptoms. The treatment provided moderate relief. The effect of pain on patient's ADLS: No Impairment. Past Medical History: Diagnosis Date Anxiety Arthritis Asthma Cellulitis Chronic obstructive lung disease ([facility]) 03/25/2017 Chronic pain disorder Diabetes mellitus ([facility]) 12/2018 since weightloss Sx Essential hypertension 04/30/2022 Hyperlipidemia Patient states she no longer has Hypothyroid Joint pain Low back pain Prolonged emergence from general anesthesia Rash reaction to clindamycin Sciatica Visual impairment contacts Past Surgical History: Procedure Laterality Date BARIATRIC SURGERY 01/11/2019 gastric bypass CHOLECYSTECTOMY COLONOSCOPY 01/10/2015 single polyp EXCISION LIPOMA Left 07/19/2019 Performed by Que Celis DO at [facility] HYSTERECTOMY INJECTION BLOCK NERVE RIGHT CLUNEAL Right 12/04/2023 Performed by Leonel Louie MD at [facility] INJECTION BLOCK NERVE KNEE Left Genicular Left 05/22/2023 Performed by Leonel Louie MD at [facility] INJECTION BLOCK SACROILIAC JOINT Right 07/25/2022 Performed by Leonel Louie MD at [facility] INJECTION BLOCK SACROILIAC JOINT Right 06/20/2022 Performed by Leonel Louie MD at [facility] RADIOFREQUENCY ABLATION GENICULAR Left 07/24/2023 Performed by Leonel Louie MD at [facility] Allergies Allergen Reactions Clindamycin Hives Clindamycin Hcl Hives Other Hives Synvisc-One [Hylan G-F 20] Swelling Family History Problem Relation Age of Onset Cancer Mother Uterine cancer Mother Heart disease Father Pancreatic cancer Brother Bone cancer Nephew Social History Socioeconomic History Marital status: Spouse name: Not on file Number of children: Not on file Years of education: Not on file Highest education level: Not on file Occupational History Not on file Tobacco Use Smoking status: Never Smokeless tobacco: Never Vaping Use Vaping status: Never Used Substance and Sexual Activity Alcohol use: No Drug use: No Sexual activity: Defer Partners: Male Other Topics Concern Not on file Social History Narrative Not on file Social Determinants of Health Financial Resource Strain: Low Risk (09/28/2020) Overall Financial Resource Strain (CARDIA) Difficulty of Paying Living Expenses: Not hard at all Food Insecurity: No Food Insecurity (12/23/2023) Hunger Screening Food Insecurity - Worry: Never True Food Insecurity - Inability: Never True Transportation Needs: No Transportation Needs (03/31/2023) PRAPARE - Transportation Lack of Transportation (Medical): No Lack of Transportation (Non-Medical): No Physical Activity: Sufficiently Active (04/30/2022) Exercise Vital Sign Days of Exercise per Week: 7 days Minutes of Exercise per Session: 60 min Stress: Stress Concern Present (03/31/2023) [place] [employer] - Occupational Stress Questionnaire Feeling of Stress : Very much Social Connections: Socially Integrated (09/28/2020) Social Connection and Isolation Panel [NHANES] Frequency of Communication with Friends and Family: Twice a week Frequency of Social Gatherings with Friends and Family: Once a week Attends Sikh Services: More than 4 times per year Active Member of Clubs or Organizations: Yes Attends Club or Organization Meetings: More than 4 times per year Marital Status: Interpersonal Safety: Not At Risk (04/30/2022) Humiliation, Afraid, Rape, and Kick questionnaire Fear of Current or Ex-Partner: No Emotionally Abused: No Physically Abused: No Sexually Abused: No Housing Instability: Not on file Review of Systems Constitutional: Negative for chills and fever. HENT: Positive for rhinorrhea. Negative for congestion and sore throat. Respiratory: Negative for cough and shortness of breath. Cardiovascular: Negative for chest pain. Gastrointestinal: Negative for abdominal pain, bowel incontinence, nausea and vomiting. Genitourinary: Negative for bladder incontinence. Musculoskeletal: Positive for back pain. Skin: Negative. Neurological: Negative for tingling, weakness (Tyler knees) and numbness (Rt buttock). Psychiatric/Behavioral: Negative. Vital Signs: BP 137/68 (BP Site: Left Arm, BP Postition: Sitting) Pulse 66 SpO2 98% Physical Exam: GENERAL - Healthy patient that appears stated age. HEENT - Normocephalic / Atraumatic, Extraoccular movements intact, trachea midline, thyroid within normal limits. CV - pulse regular, Warm extremities with appropriate color of nailbeds. RESP - No obvious wheezing, No Shortness of Breath, No overexertion response to exam maneuvers. COORDINATION - remains intact. PSYCH - Alert and Oriented x4, Attentive and appropriate, constitutionally normal, displays normal mood and affect per situation, answered questions appropriately during examination, demonstrated appropriate attention during discussion, demonstrated appropriate cognitive reasoning and understanding of the medical condition by asking appropriate questions regarding the diagnosis and risks/benefits/alternatives of treatment modalities. No obvious deficits in memory, reasoning, or intellect. Lumbar: SKIN - No rashes or bruising in the area of the patient s pain. LYMPH NODES - demonstrate no obvious enlargement. EXTREMITIES - Lower extremities are warm, with minimal edema and palpable pulses. Tenderness to palpation noted in the lumbar spine and paraspinal musculature. Pain is elicited with flexion, extension, and lateral rotation of the lumbar spine. Range of motion is diminished with these motions due to pain. Facet palpation is noted to be painful and facet loading maneuvers elicit pain that is concordant with the patient s normal pain complaints. Some muscle spasm is noted in the overlying musculature. STRENGTH - noted to be 5 out of 5 all muscle groups bilateral lower extremities including muscles involving hip flexion and abduction, knee flexion and extension, as well as foot dorsiflexion and plantarflexion. No notable atrophy, fasciculations or spasm. SENSORY - No notable sensory deficits in the bilateral lower extremities to touch or pinprick in all dermatomal distributions. Straight Leg Raise is negative bilaterally. No tenderness to palpation is noted over the Bilateral SacroIliac Joint: Fabere sign (Sly's Test) is negative, as is compression and distraction of the sacroiliac joints, which is consistent with some of the patient's normal pain. No tenderness or dermatomal changes over the bilateral cluneal nerve distributions. Distal Joint Exam - Lower Extremity: SKIN - No rashes or bruising in the area of the patient s pain. EXTREMITIES - Lower extremities are warm, with minimal edema and palpable pulses. Strength is 5/5 all muscle groups of the bilateral lower extremities. There is no obvious atrophy, fasciculations, or spasms. There are no notable sensory deficits in the overlying dermatomal distributions. Gait remains normal. Examination of the Left knee reveals no tenderness to palpation over the superior, inferior, lateral, and medial aspect of the knee. No swelling is noted without significant erythema. Pain is elicited with flexion and extension of the knee both actively and passively. No grinding is noted with these motions. There is no notable ligamental laxity or instability and drawer test is negative. Assessment/Treatment Plan: Loli was seen today for back pain. Diagnoses and all orders for this visit: Primary osteoarthritis of left knee Lumbar spondylosis Unspecified mononeuropathy of bilateral lower limbs Monitor Follow up 2 months The medications prescribed have been reviewed for medication interactions/contraindications and/or for upcoming procedures: continue current medication regimen without any changes. DISCUSSION: Treatment options discussed with patient and all questions answered to patient's satisfaction. Discussed the rules and regulations surrounding prescription of opioids and compliance at length. Failure to follow the rules and regulation will result in tapering and discontinuation of medications if applicable. Prescribed medication that requires intensive monitoring for toxicity We do not currently prescribe any controlled substance from this practice. It does appear that the patient benefited from the previous injection and the benefit has continued through this visit. At this time, we will monitor the patient s symptoms from an interventional standpoint and consider another injection in the future if the patient s symptoms return or intensify severely. The patient was made aware that they should call if symptoms worsen or if their pain begins to have a negative impact on their quality of life and activities of daily living again. The spine model was demonstrated and Xray and MRI was reviewed and used to explain the condition. Chronic conditions not treated during this visit that affected my overall medical decision making: Obesity and Diabetes OARRS: Reviewed. Scribe Statement: Scribed for and in the presence of ANDIE VU PA-C by Karrie Lane CNA. Provider Statement: I, ANDIE VU PA-C, personally performed the services described in the documentation, as scribed by Karrie Lane CNA in my presence, and it is both accurate and complete. Karrie Lane CNA 12/23/[address] CNA 12/23/[address] CNA 12/23/23 1049 Andie Vu PA-C 12/23/23 [id number] documented in this encounter [facility] 11-17-2023 History of Presen t illness Narrative [facility] [address] [place] [address] Patient: Loli Flores Sex: female : 1950 Age: 73 y.o. PCP: MARIO BENÍTEZ 11/17/2023 Loli Flores is here for a(n) follow up. She reports her right buttock pain has returned. Chief Complaint Patient presents with Back Pain HPI: Right SI Joint Injection 06/20/2022 100% relief for several hours. 07/25/2022 Right SIJ with 100% relief Knee 07-08-22 in office Gel One injection into left knee with 90% relief 03/24/2023 Left knee Gel One injection with 75% relief 05/22/23 Lt Gen NB w/100% relief continued 07/24/2023 left Genicular NB with 90% relief continuing. Pre procedure pain 7/10; post procedure pain 1/10 Back Pain This is a chronic problem. The current episode started more than 1 year ago (4+ years). The problem occurs constantly. The problem has been gradually worsening since onset. The pain is present in the gluteal, lumbar spine and sacro-iliac (right side). The quality of the pain is described as shooting and stabbing (sharp). The pain radiates to the right thigh (Rt hip). The pain is at a severity of 5/10. The pain is moderate. The pain is Worse during the night (increases to 10/10). Exacerbated by: walking, stairs. Stiffness is present All day. Associated symptoms include leg pain (Rt thigh). Pertinent negatives include no bladder incontinence, bowel incontinence, chest pain, fever, numbness (Rt buttock), tingling or weakness (Tyler knees). Risk factors include poor posture and obesity. She has tried chiropractic manipulation, home exercises, ice and heat (chiropractor, previous injections,HEP, walks, lido patch, gabapentin, biofreeze; (no NSAIDS allowed per gastric bypass)) for the symptoms. The treatment provided mild relief. Knee Pain Incident location: 7+ years. There was no injury mechanism. The pain is present in the left knee. The quality of the pain is described as aching. The pain is at a severity of 0/10. The patient is experiencing no pain. The pain has been Improving since onset. Pertinent negatives include no inability to bear weight, loss of motion, loss of sensation, muscle weakness, numbness (Rt buttock) or tingling. She reports no foreign bodies present. The symptoms are aggravated by movement (ambulation). She has tried acetaminophen, ice, heat, elevation and rest (chiropractor, previous injections, HEP, walks, lido patch, gabapentin, biofreeze; (no NSAIDS allowed per gastric bypass)) for the symptoms. The treatment provided moderate relief. The effect of pain on patient's ADLS: Moderate Impairment. Past Medical History: Diagnosis Date Anxiety Arthritis Asthma Cellulitis Chronic obstructive lung disease ([facility]) 03/25/2017 Chronic pain disorder Diabetes mellitus ([facility]) 12/2018 since weightloss Sx Essential hypertension 04/30/2022 Hyperlipidemia Patient states she no longer has Hypothyroid Joint pain Low back pain Prolonged emergence from general anesthesia Rash reaction to clindamycin Sciatica Visual impairment contacts Past Surgical History: Procedure Laterality Date BARIATRIC SURGERY 01/11/2019 gastric bypass CHOLECYSTECTOMY COLONOSCOPY 01/10/2015 single polyp EXCISION LIPOMA Left 07/19/2019 Performed by Que Celis DO at [facility] HYSTERECTOMY INJECTION BLOCK NERVE KNEE Left Genicular Left 05/22/2023 Performed by Leonel Louie MD at [facility] INJECTION BLOCK SACROILIAC JOINT Right 07/25/2022 Performed by Leonel Louie MD at [facility] INJECTION BLOCK SACROILIAC JOINT Right 06/20/2022 [facility] [facility] RADIOFREQUENCY ABLATION GENICULAR Left 07/24/2023 Performed by Leonel Louie MD at [facility] Allergies Allergen Reactions Clindamycin Hives Clindamycin Hcl Hives Other Hives Synvisc-One [Hylan G-F 20] Swelling Family History Problem Relation Age of Onset Cancer Mother Uterine cancer Mother Heart disease Father Pancreatic cancer Brother Bone cancer Nephew Social History Socioeconomic History Marital status: Spouse name: Not on file Number of children: Not on file Years of education: Not on file Highest education level: Not on file Occupational History Not on file Tobacco Use Smoking status: Never Smokeless tobacco: Never Vaping Use Vaping Use: Never used Substance and Sexual Activity Alcohol use: No Drug use: No Sexual activity: Defer Partners: Male Other Topics Concern Not on file Social History Narrative Not on file Social Determinants of Health Financial Resource Strain: Low Risk (09/28/2020) Overall Financial Resource Strain (CARDIA) Difficulty of Paying Living Expenses: Not hard at all Food Insecurity: No Food Insecurity (11/17/2023) Hunger Screening Food Insecurity - Worry: Never True Food Insecurity - Inability: Never True Transportation Needs: No Transportation Needs (03/31/2023) PRAPARE - Transportation Lack of Transportation (Medical): No Lack of Transportation (Non-Medical): No Physical Activity: Sufficiently Active (04/30/2022) Exercise Vital Sign Days of Exercise per Week: 7 days Minutes of Exercise per Session: 60 min Stress: Stress Concern Present (03/31/2023) [place] [place] [employer] - Occupational Stress Questionnaire Feeling of Stress : Very much Social Connections: Socially Integrated (09/28/2020) Social Connection and Isolation Panel [NHANES] Frequency of Communication with Friends and Family: Twice a week Frequency of Social Gatherings with Friends and Family: Once a week Attends Sikh Services: More than 4 times per year Active Member of Clubs or Organizations: Yes Attends Club or Organization Meetings: More than 4 times per year Marital Status: Interpersonal Safety: Not At Risk (04/30/2022) Humiliation, Afraid, Rape, and Kick questionnaire Fear of Current or Ex-Partner: No Emotionally Abused: No Physically Abused: No Sexually Abused: No Housing Instability: Not on file Review of Systems Constitutional: Negative for chills and fever. HENT: Negative. Eyes: Negative. Respiratory: Negative for cough and shortness of breath. Cardiovascular: Negative for chest pain. Gastrointestinal: Negative. Negative for bowel incontinence. Endocrine: Negative. Genitourinary: Negative. Negative for bladder incontinence. Musculoskeletal: Positive for back pain. Lt Knee Skin: Negative. Allergic/Immunologic: Negative. Neurological: Negative for tingling, weakness (Tyler knees) and numbness (Rt buttock). Hematological: Negative. Psychiatric/Behavioral: Negative. Vital Signs: BP 142/73 Pulse 65 Ht 175.3 cm (5' 9 ) Wt 103 kg (227 lb) SpO2 100% BMI 33.52 kg/m Physical Exam: GENERAL - Healthy patient that appears stated age. HEENT - Normocephalic / Atraumatic, Extraoccular movements intact, trachea midline, thyroid within normal limits. CV - pulse regular, Warm extremities with appropriate color of nailbeds. RESP - No obvious wheezing, No Shortness of Breath, No overexertion response to exam maneuvers. COORDINATION - remains intact. PSYCH - Alert and Oriented x4, Attentive and appropriate, constitutionally normal, displays normal mood and affect per situation, answered questions appropriately during examination, demonstrated appropriate attention during discussion, demonstrated appropriate cognitive reasoning and understanding of the medical condition by asking appropriate questions regarding the diagnosis and risks/benefits/alternatives of treatment modalities. No obvious deficits in memory, reasoning, or intellect. Lumbar: SKIN - No rashes or bruising in the area of the patient s pain. LYMPH NODES - demonstrate no obvious enlargement. EXTREMITIES - Lower extremities are warm, with minimal edema and palpable pulses. No significant tenderness to palpation noted in the lumbar spine and paraspinal musculature. Mild pain is elicited with flexion, extension, and lateral rotation of the lumbar spine. Range of motion is not diminished with these motions. Facet palpation is negative for significant pain and facet loading maneuvers elicit only mild pain that is not concordant with the patient s normal pain complaints. STRENGTH - noted to be 5 out of 5 all muscle groups bilateral lower extremities including muscles involving hip flexion and abduction, knee flexion and extension, as well as foot dorsiflexion and plantarflexion. No notable atrophy, fasciculations or spasm. SENSORY - No notable sensory deficits in the bilateral lower extremities to touch or pinprick in all dermatomal distributions. Straight Leg Raise is negative bilaterally. Tenderness to palpation is noted over the Right SacroIliac Joint: Fabere sign (Sly's Test) is significantly positive, as is compression and distraction of the sacroiliac joints, which is consistent with some of the patient's normal pain. Hyperalgesia noted over the right cluneal nerve distributions. Gait is normal. Assessment/Treatment Plan: Loli was seen today for back pain. Diagnoses and all orders for this visit: Other specified mononeuropathies of right lower limb - Case request operating room: INJECTION BLOCK NERVE RIGHT CLUNEAL Right Cluneal Nerve Block - under fluoroscopy It is hopeful that the described procedure will provide symptomatic pain relief. It is felt to be medically necessary noting that the patient has tried and failed more conservative modalities of therapy and this is the next most appropriate step. The procedure was described in detail to the patient as well as the potential benefits of pain reduction alongside risks of the procedure and alternatives. Risks were described as including, but not limited to bleeding, infection, nerve damage, spinal cord injury, paralysis, stroke, dural puncture headache, and medication reaction. The patient expressed understanding regarding the risks and benefits and wishes to proceed. Cluneal nerve injections should provide information to confirm that the cluneal nerves are the patient s most significant pain generator. If this provides significant but only temporary pain relief, the patient may in the future be a candidate for radiofrequency denervation of the cluneal nerves to provide pain relief for approximately 1 year. Follow up 2 weeks after procedure The medications prescribed have been reviewed for medication interactions/contraindications and/or for upcoming procedures: continue current medication regimen without any changes. DISCUSSION: Treatment options discussed with patient and all questions answered to patient's satisfaction. Discussed the rules and regulations surrounding prescription of opioids and compliance at length. Failure to follow the rules and regulation will result in tapering and discontinuation of medications if applicable. Prescribed medication that requires intensive monitoring for toxicity We do not currently prescribe any controlled substance from this practice. The spine model was demonstrated and Xray and MRI was reviewed and used to explain the condition. Chronic conditions not treated during this visit that affected my overall medical decision making: Comorbidity- Obesity The patient does have a comorbid condition of obesity. This will be taken into account in that obesity will contribute to certain pain conditions. It can contribute to pain from degenerative disc disease as well as osteoarthritis of the joints. Many neuropathic symptoms are also amplified due to axial spine loading. Special benefits will also need to be given to procedures. Many procedures are technically more difficult in the light of severe obesity. I will also consider the possibility of undiagnosed obstructive sleep apnea (which often accompanies obesity) when prescribing any narcotic medications. I will weigh the risks and benefits and fully discuss them with the patient for these reasons. Comorbidity- Diabetes The patient has a history of diabetes mellitus currently managed with medications. This will need to be considered prior to any procedure that would require the injection of steroid in that the patient may experience a transient increase in glucose as a result. Additional consideration will need to be given to timing the procedure early in the morning in that the patient will need to be fasting prior to the administration of anesthesia. Every effort will be made to perform the procedure as a 1st case due to this condition. And the patient will be instructed to hold their diabetic medications on that morning. If necessary, a blood glucose test can also be performed that morning. The risks/ benefits/ and alternatives will be weighed and explained to the patient prior to any procedure. OARRS: Reviewed. Scribe Statement: Scribed for and in the presence of ERICH YU by Karrie Lane CNA. Provider Statement: I, ERICH YU, personally performed the services described in the documentation, as scribed by Karrie Lane CNA in my presence, and it is both accurate and complete. Karrie Lane CNA 11/17/23 1231 ERICH Yu 11/17/23 1340 documented in this encounter [facility] [place] 11-17-[address] CNA - 11/17/2023 11:45 AM EDT Epidural Steroid Injection (TIGRE) / Nerve Root Injection / Nerve Block These procedure(s) involve the injection of a steroid and anesthetic into the epidural space or the nerve sheath that is both diagnostic and potentially therapeutic for alleviating discomfort of the legs and arms secondary to compression of the respective nerves due to bulging discs, bone spurs and other potential causes. Steroids are potent anti-inflammatory drugs that act to decrease the swollen and inflamed nerves thus relieving your clinical symptoms. How Long Will This Procedure Last? The extent and duration of pain relief may depend on the amount of inflammation and how many areas are involved. Other coexisting factors may be responsible for your pain. You and your physician will discuss expected results of procedure(s). After Your Injection You may experience soreness and tenderness at the area of treatment. This pain may not occur until later today after the numbing medicine wears off. The steroid can take 3-5 days to work and provide noticeable improvement. Activity You may feel temporary numbness, weakness or tingling: In the neck, arm, or fingertips (if your procedure was done in your neck) In the legs (if your procedure was done in your lower back) These symptoms are normal, and should subside within 3-4 hours. In that time, be careful to avoid falls. As a safety precaution, you must have a canal driver after a lumbar nerve root injection, even if you do not receive sedation. Resume activity as tolerated when function has returned. Medications Resume your routine medications after your procedure. You may resume blood thinners per your regular schedule after the procedure. If you received sedation: If you received sedation for your procedure, you may feel sleepy or not yourself for several hours today. For the next 24 hours avoid activities that requires alertness or coordination. This includes: Driving or operating heavy machinery Using power tools Consuming alcohol Do not make important or complex decisions or sign legal documents in the next 24 hours. Other Instructions: If you feel severe pain at the injection site with swelling and redness, increased leg weakness, a fever of 101 or higher, headache (or worsening headache), changes in vision or urinary retention: Please call the office at , or have someone take you to the nearest emergency room. Tell the emergency room staff that you recently had a spine injection. A doctor must evaluate you for bleeding and injection complications. If you lose control over bowel, bladder, or legs: Go to the nearest emergency room. If you are diabetic, the steroids used in this procedure can increase your blood sugar. If your blood sugar is 250mg/dL or higher, contact your primary care physician, or the doctor who manages your diabetes, to discuss how to get it back to normal. documented in this encounter [facility] 10-15-2023 Miscellaneous Notes Patient called because her medication was sent to [facility] instead of mail in. documented in this encounter [facility] 10-15-2023 Telephone encounter Note Patient called because her medication was sent to [facility] instead of mail in. [facility] History of Presen t illness Narrative [facility] [address] [place] [address] Patient: Loli Flores Sex: female : 1950 Age: 73 y.o. PCP: MARIO BENÍTEZ 10/07/2023 Loli Godwin Nickmariel is here for a(n) post procedure follow up 07/24/2023 Left Genicular Radio Frequency Ablation with 90% relief continuing. Pre-procedural pain was reported as 02/23. Chief Complaint Patient presents with Back Pain Knee Pain HPI: Right SI Joint Injection 06/20/2022 100% relief for several hours. 07/25/2022 Right SIJ with 100% relief Knee 07-08-22 in office Gel One injection into left knee with 90% relief 03/24/2023 Left knee Gel One injection with 75% relief 05/22/23 Lt Gen NB w/100% relief continued 07/24/2023 left Genicular NB with 90% relief continuing. Pre procedure pain 7/10; post procedure pain 1/10 Back Pain This is a chronic problem. The current episode started more than 1 year ago (4+ years). The problem occurs intermittently. The problem has been gradually worsening since onset. The pain is present in the gluteal, lumbar spine and sacro-iliac (right side). The quality of the pain is described as aching, shooting and stabbing (sharp shooting pain intermittent to Rt hip). Radiates to: posterior rt hip. The pain is at a severity of 5/10. The patient is experiencing no pain. The pain is The same all the time. Exacerbated by: walking, stairs. Stiffness is present All day. Associated symptoms include weakness (Left knee). Pertinent negatives include no bladder incontinence, bowel incontinence, chest pain, fever, leg pain, numbness or tingling. Risk factors include poor posture and obesity. She has tried chiropractic manipulation, home exercises, ice and heat (chiropractor, previous injections,HEP, walks, lido patch, gabapentin, biofreeze; (no NSAIDS allowed per gastric bypass)) for the symptoms. The treatment provided mild relief. Knee Pain Incident location: 7+ years. There was no injury mechanism. The pain is present in the left knee (medial aspect). The quality of the pain is described as aching. The pain is at a severity of 0/10 (no pain at this time. States only gets pain in left knee with prolonged standing and can reach 4/10. Able to do steps again). The patient is experiencing no pain. The pain has been Worsening since onset. Pertinent negatives include no inability to bear weight, loss of motion, loss of sensation, muscle weakness, numbness or tingling. Associated symptoms comments: Left knee Pops at times . She reports no foreign bodies present. The symptoms are aggravated by movement (ambulation). She has tried acetaminophen, ice, heat, elevation and rest (chiropractor, previous injections, HEP, walks, lido patch, gabapentin, biofreeze; (no NSAIDS allowed per gastric bypass)) for the symptoms. The treatment provided moderate relief. The effect of pain on patient's ADLS: Moderate Impairment. Past Medical History: Diagnosis Date Anxiety Arthritis Asthma Cellulitis Chronic obstructive lung disease ([facility]) 03/25/2017 Chronic pain disorder Diabetes mellitus ([facility]) 12/2018 since weightloss Sx Essential hypertension 04/30/2022 Hyperlipidemia Patient states she no longer has Hypothyroid Joint pain Low back pain Prolonged emergence from general anesthesia Rash reaction to clindamycin Sciatica Visual impairment contacts Past Surgical History: Procedure Laterality Date BARIATRIC SURGERY 01/11/2019 gastric bypass CHOLECYSTECTOMY COLONOSCOPY 01/10/2015 single polyp EXCISION LIPOMA Left 07/19/2019 Performed by Que Celis DO at [facility] HYSTERECTOMY INJECTION BLOCK NERVE KNEE Left Genicular Left 05/22/2023 Performed by Leonel Louie MD at [facility] INJECTION BLOCK SACROILIAC JOINT Right 07/25/2022 Performed by Leonel Louie MD at [facility] INJECTION BLOCK SACROILIAC JOINT Right 06/20/2022 Performed by Leonel Louie MD at [facility] RADIOFREQUENCY ABLATION GENICULAR Left 07/24/2023 Performed by Leonel Louie MD at [facility] Allergies Allergen Reactions Clindamycin Hives Clindamycin Hcl Hives Other Hives Synvisc-One [Hylan G-F 20] Swelling Family History Problem Relation Age of Onset Cancer Mother Uterine cancer Mother Heart disease Father Pancreatic cancer Brother Bone cancer Nephew Social History Socioeconomic History Marital status: Spouse name: Not on file Number of children: Not on file Years of education: Not on file Highest education level: Not on file Occupational History Not on file Tobacco Use Smoking status: Never Smokeless tobacco: Never Vaping Use Vaping Use: Never used Substance and Sexual Activity Alcohol use: No Drug use: No Sexual activity: Defer Partners: Male Other Topics Concern Not on file Social History Narrative Not on file Social Determinants of Health Financial Resource Strain: Low Risk (09/28/2020) Overall Financial Resource Strain (CARDIA) Difficulty of Paying Living Expenses: Not hard at all Food Insecurity: No Food Insecurity (10/07/2023) Hunger Screening Food Insecurity - Worry: Never True Food Insecurity - Inability: Never True Transportation Needs: No Transportation Needs (03/31/2023) PRAPARE - Transportation Lack of Transportation (Medical): No Lack of Transportation (Non-Medical): No Physical Activity: Sufficiently Active (04/30/2022) Exercise Vital Sign Days of Exercise per Week: 7 days Minutes of Exercise per Session: 60 min Stress: Stress Concern Present (03/31/2023) [place] [employer] - Occupational Stress Questionnaire Feeling of Stress : Very much Social Connections: Socially Integrated (09/28/2020) Social Connection and Isolation Panel [NHANES] Frequency of Communication with Friends and Family: Twice a week Frequency of Social Gatherings with Friends and Family: Once a week Attends Sikh Services: More than 4 times per year Active Member of Clubs or Organizations: Yes Attends Club or Organization Meetings: More than 4 times per year Marital Status: Interpersonal Safety: Not At Risk (04/30/2022) Humiliation, Afraid, Rape, and Kick questionnaire Fear of Current or Ex-Partner: No Emotionally Abused: No Physically Abused: No Sexually Abused: No Housing Instability: Not on file Review of Systems Constitutional: Negative for fever. HENT: Negative. Eyes: Negative. Respiratory: Negative. Cardiovascular: Negative for chest pain. Gastrointestinal: Negative. Negative for bowel incontinence. Genitourinary: Negative. Negative for bladder incontinence. Musculoskeletal: Positive for back pain. Skin: Negative. Neurological: Positive for weakness (Left knee). Negative for tingling and numbness. Vital Signs: BP 147/73 (BP Site: Left Arm, BP Postition: Sitting) Pulse 62 Resp 18 Ht 175.3 cm (5' 9 ) Wt 102.5 kg (226 lb) SpO2 98% BMI 33.37 kg/m Physical Exam: GENERAL - Healthy patient that appears stated age. HEENT - Normocephalic / Atraumatic, Extraoccular movements intact, trachea midline, thyroid within normal limits. CV - pulse regular, Warm extremities with appropriate color of nailbeds. RESP - No obvious wheezing, No Shortness of Breath, No overexertion response to exam maneuvers. COORDINATION - remains intact. PSYCH - Alert and Oriented x4, Attentive and appropriate, constitutionally normal, displays normal mood and affect per situation, answered questions appropriately during examination, demonstrated appropriate attention during discussion, demonstrated appropriate cognitive reasoning and understanding of the medical condition by asking appropriate questions regarding the diagnosis and risks/benefits/alternatives of treatment modalities. No obvious deficits in memory, reasoning, or intellect. Lumbar: SKIN - No rashes or bruising in the area of the patient s pain. LYMPH NODES - demonstrate no obvious enlargement. EXTREMITIES - Lower extremities are warm, with minimal edema and palpable pulses. Tenderness to palpation noted in the lumbar spine and paraspinal musculature. Pain is elicited with flexion, extension, and lateral rotation of the lumbar spine. Range of motion is diminished with these motions due to pain. Facet palpation is noted to be painful and facet loading maneuvers elicit pain that is concordant with the patient s normal pain complaints. Some muscle spasm is noted in the overlying musculature. STRENGTH - noted to be 5 out of 5 all muscle groups bilateral lower extremities including muscles involving hip flexion and abduction, knee flexion and extension, as well as foot dorsiflexion and plantarflexion. No notable atrophy, fasciculations or spasm. SENSORY - No notable sensory deficits in the bilateral lower extremities to touch or pinprick in all dermatomal distributions. Straight Leg Raise is negative bilaterally. Minimal tenderness to palpation is noted over the Right SacroIliac Joint: Fabere sign (Sly's Test) is mildly positive, as is compression and distraction of the sacroiliac joints, which is consistent with some of the patient's normal pain. Distal Joint Exam - Lower Extremity: SKIN - No rashes or bruising in the area of the patient s pain. EXTREMITIES - Lower extremities are warm, with minimal edema and palpable pulses. Strength is 5/5 all muscle groups of the bilateral lower extremities. There is no obvious atrophy, fasciculations, or spasms. There are no notable sensory deficits in the overlying dermatomal distributions. Gait remains normal. Examination of the Left knee reveals tenderness to palpation over the superior, inferior, lateral, and medial aspect of the knee. Some swelling is noted without significant erythema. Pain is elicited with flexion and extension of the knee both actively and passively. Some grinding is noted with these motions. There is no notable ligamental laxity or instability and drawer test is negative. Assessment/Treatment Plan: Loli was seen today for back pain and knee pain. Diagnoses and all orders for this visit: Primary osteoarthritis of left knee Disorder of sacrum Monitor Follow up 3 months The medications prescribed have been reviewed for medication interactions/contraindications and/or for upcoming procedures: continue current medication regimen without any changes. DISCUSSION: Treatment options discussed with patient and all questions answered to patient's satisfaction. Discussed the rules and regulations surrounding prescription of opioids and compliance at length. Failure to follow the rules and regulation will result in tapering and discontinuation of medications if applicable. Prescribed medication that requires intensive monitoring for toxicity We do not currently prescribe any controlled substance from this practice. It does appear that the patient benefited from the previous injection and the benefit has continued through this visit. At this time, we will monitor the patient s symptoms from an interventional standpoint and consider another injection in the future if the patient s symptoms return or intensify severely. The patient was made aware that they should call if symptoms worsen or if their pain begins to have a negative impact on their quality of life and activities of daily living again. The spine model was demonstrated and Xray and MRI was reviewed and used to explain the condition. Chronic conditions not treated during this visit that affected my overall medical decision making: Obesity and Anxiety OARRS: Reviewed. Scribe Statement: Scribed for and in the presence of ANDIE VU PA-C by Karrie Lane CNA. Provider Statement: I, ANDIE VU PA-C, personally performed the services described in the documentation, as scribed by Karrie Lane CNA in my presence, and it is both accurate and complete. Karrie Lane CNA 10/07/23 1325 Andie Vu PA-C 10/07/23 1327 documented in this encounter [facility] 08-11-2023 Miscellaneous Notes Pt called and would like a refill on FLONASE. Pharmacy is listed and correct. documented in this encounter [facility] 08-11-2023 Telephone encounter Note Pt called and would like a refill on FLONASE. Pharmacy is listed and correct. [facility] Evaluation note Diagnosis Plugged feeling in ear, right- Primary [facility] Diagnosis Chronic mastoiditis of right side- Primary [facility] Diagnosis Other specified mononeuropathies of right lower limb- Primary Other specified mononeuropathies of right lower limb- Primary Other specified mononeuropathies of right lower limb [facility] Diagnosis Other specified mononeuropathies of right lower limb- Primary Acquired hypothyroidism- Primary Unspecified hypothyroidism Type 2 diabetes mellitus with microalbuminuria, without long-term current use of insulin ([facility]) Chronic obstructive pulmonary disease, unspecified COPD type ([facility]) Class 1 obesity due to excess calories without serious comorbidity with body mass index (BMI) of 33.0 to 33.9 in adult Other specified mononeuropathies of right lower limb [facility] Diagnosis Mild persistent asthma without complication- Primary [facility] Diagnosis Mild intermittent asthma, unspecified whether complicated [facility] Diagnosis Primary osteoarthritis of left knee- Primary Lumbar spondylosis Lumbosacral spondylosis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
== END 2024-10-20 10:28 | disposition home or self-care (01) ==
LOC: MAMMO 10:27
PROVIDERS: PCP Nurse Practitioner Family; Visit Provider Internal Medicine
DX: Z12.31 Encounter for screening mammogram for malignant neoplasm of breast (principal); Z80.8 Family history of malignant neoplasm of other organs or systems
CPT/HCPCS: 77063; 77067